=== PATIENT | female | born 1980 | race Caucasian/White ===

== ENCOUNTER 2017-08-24 15:25 | Inpatient (IN) ==
--- NOTE | 2017-08-24 15:52 | Emergency Department Note ---
Disposition Clinical Impression: Suicidal ideation Disposition: Admitted As Inpatient Condition: Fair Forms: ED Satisfaction Letter Time of Disposition: 17:07 Psych HPI - General Chief Complaint: ED Medical Clearance Stated Complaint: Medical clearance Time Seen by Provider: 08/24/17 15:46 Source: patient Mode of arrival: ambulatory Limitations: no limitations Nursing Notes Reviewed: Yes Vital Signs Reviewed: Yes - History of Present Illness HPI Narrative: Patient sent from the crisis center for depression and suicidal thoughts. Denies recent drug or alcohol ingestion. No physical complaints other than headache Pt complaint: suicidal ideation, feels depressed Onset (ago): day(s) Duration: constant History of similar episodes: Yes Improves with: none Worsens with: none Alleged intoxication: No Associated Psychiatric Symptoms: depression, suicidal ideation Associated symptoms: Reports: headache Traumatic symptoms: denies traumatic injury Treatments prior to arrival: none Self harm or harm to others: admits thoughts of self harm - Related Data Home Medications Medication Instructions Recorded Confirmed Amitriptyline [Elavil] 25 mg PO HS 04/25/17 04/25/17 Buspirone HCl [Buspar] 10 mg PO DAILY 04/25/17 04/25/17 Diclofenac Sodium [Voltaren] 50 mg PO DAILY 04/25/17 04/25/17 Divalproex (12 HR) [Depakote (12 250 mg PO BID 04/25/17 04/25/17 HR)] Divalproex (24 HR) [Depakote ER 250 mg PO HS 04/25/17 04/25/17 (24 HR)] HydrOXYzine Pamoate [Vistaril] 50 mg PO DAILY 04/25/17 04/25/17 Melatonin [Melatin] 3 mg PO HS 04/25/17 04/25/17 Sertraline [Zoloft] 100 mg PO DAILY 04/25/17 04/25/17 Allergies Allergy/AdvReac Type Severity Reaction Status Date / Time Penicillins Allergy Swelling Verified 04/25/17 00:29 of Lip/Tongue/Throat All systems ED: reviewed and negative except as stated. Constitutional: Reports: as per HPI Eyes: Reports: as per HPI ENT ED: Reports: as per HPI Cardiovascular: Reports: as per HPI Respiratory: Reports: as per HPI Gastrointestinal: Reports: as per HPI Genitourinary: Reports: as per HPI Musculoskeletal: Reports: as per HPI Integumentary: Reports: as per HPI Neurological: Reports: headache Psychiatric: Reports: depression, suicidal thoughts Endocrine: Reports: as per HPI Hematological/Lymphatic: Reports: as per HPI Allergic/Immunologic: Reports: as per HPI Past Medical History - Past Medical History Source: patient Medical history: Reports: renal disease, seizures, other Surgical history: Reports: , cholecystectomy Psychiatric history: Reports: anxiety, depression [employer] history: Reports: bilateral tubal ligation - Social History Smoking Status: Never smoker Smokeless Tobacco Status: No Alcohol use: Reports: none Drug use: Reports: none Physical Exam - General Limitations: no limitations General appearance: alert, in no apparent distress - Head Head exam: atraumatic - Eye Eye exam: Present: normal appearance - ENT ENT exam: normal exam - Neck Neck exam: Present: normal inspection - Chest Chest inspection: Present: normal inspection, symmetric chest wall rise - Respiratory Respiratory exam: Present: normal lung sounds bilaterally - Cardiovascular Cardiovascular exam: Present: regular rate, normal rhythm, normal heart sounds - Rectal Exam Rectal exam: Present: deferred - Extremities Exam Extremities exam: Present: normal inspection - Neurological Exam Neurological exam: Present: alert, oriented X3, CN II-XII intact - Psychiatric Psychiatric exam: Present: normal affect, normal mood - Skin Skin exam: Present: warm, dry, intact Course Course Narrative: Patient presents feeling depressed and suicidal. I will attempt to clear her medically for behavioral evaluation - Reevaluation(s) Reevaluation #1: 1A accepts admission Vital Signs Temperature 97.6 F 08/24/17 15:42 Pulse Rate 100 08/24/17 15:42 Respiratory Rate 18 08/24/17 15:42 Blood Pressure 161/108 08/24/17 15:42 O2 Sat by Pulse Oximetry 98 08/24/17 15:42 Temperature 97.6 F 08/24/17 15:42 Pulse Rate 100 08/24/17 15:42 Respiratory Rate 18 08/24/17 15:42 Blood Pressure 161/108 08/24/17 15:42 O2 Sat by Pulse Oximetry 98 08/24/17 15:42 Oxygen Delivery Oxygen Delivery Room Air Psych - Lab Data Lab results reviewed: Yes I reviewed the patient's lab results. Result diagrams: 08/24/17 16:23 08/24/17 16:23 Lab Results 08/24/17 08/24/17 08/24/17 Range/Units 16:14 16:14 16:23 WBC 6.7 (4.3-11.1) K/mcL RBC 4.77 (3.82-4.97) M/mcL Hgb 13.9 (11.5-15.4) g/dL Hct 41.0 (35.3-44.9) % MCV 86.0 (83.0-100.0) fL MCH 29.1 (28.0-33.3) pg MCHC 33.9 (31.6-35.5) g/dL RDW 12.1 (11.5-14.5) % Plt Count 228 (140-400) K/mcL MPV 10.0 (9.4-12.4) fL Immature Gran % 0.3 (0-4) % Seg Neutrophils % 77.0 % Lymphocytes % 15.7 % Monocytes % 5.5 % Eosinophils % 1.2 % Basophils % 0.3 % Neutrophils # 5.2 (1.6-8.9) K/mcL Lymphocytes # 1.1 (0.6-4.6) K/mcL Monocytes # 0.4 (0.0-1.3) K/mcL Eosinophils # 0.1 (0.0-0.6) K/mcL Basophils # 0.0 (0.0-0.2) K/mcL Sodium (136-145) mEq/L Potassium (3.5-4.5) mEq/L Chloride (98-109) mEq/L Carbon Dioxide (19-29) mEq/L BUN (7-20) mg/dL Creatinine (0.57-1.11) mg/dL Est GFR ( Amer) (> 60) Est GFR (Non-Af Amer) (> 60) BUN/Creatinine Ratio (6-26) Glucose (70-99) mg/dL Calculated Osmolality (280-300) Calcium (8.6-10.8) mg/dL Urine Color Yellow (Yellow) Urine Clarity Cloudy A (Clear) Urine pH 6.0 (5.0-8.0) pH Units Ur Specific P[place] 1.021 (1.010-1.025) Urine Protein Negative (Neg-Trace) mg/dL Urine Glucose (UA) Normal (Normal) mg/dL Urine Ketones Negative (Negative) mg/dL Urine Blood Large H (Negative) Urine Nitrite Negative (Negative) Urine Bilirubin Negative (Negative) Urine Urobilinogen Normal (Normal) mg/dL Ur Leukocyte Esterase Negative (Negative) Urine Microscopic RBC 0-3 (0-3) per hpf Urine Microscopic WBC 0-3 (0-3) per hpf Ur Squamous Epith Cells Many H (None-Few) per lpf Urine Bacteria Few (None-Few) per hpf Hyaline Casts None Seen (None-Few) per lpf Salicylates (15-30) mg/dL Urine Opiates Screen Negative (Hnrmal=752) ng/mL Acetaminophen (10-30) mcg/mL Ur Barbiturates Screen Negative (Hsledp=096) ng/mL Valproic Acid (50-100) mcg/mL Ur Phencyclidine Scrn Negative (Cutoff=25) ng/mL Ur Amphetamines Screen Positive H (Epovie=8629) ng/mL U Benzodiazepines Scrn Negative (Vwjdck=029) ng/mL Urine Cocaine Screen Negative (Cutoff= 300) ng/mL Ethyl Alcohol (0-10) mg/dL 08/24/17 08/24/17 Range/Units 16:23 16:23 WBC (4.3-11.1) K/mcL RBC (3.82-4.97) M/mcL Hgb (11.5-15.4) g/dL Hct (35.3-44.9) % MCV (83.0-100.0) fL MCH (28.0-33.3) pg MCHC (31.6-35.5) g/dL RDW (11.5-14.5) % Plt Count (140-400) K/mcL MPV (9.4-12.4) fL Immature Gran % (0-4) % Seg Neutrophils % % Lymphocytes % % Monocytes % % Eosinophils % % Basophils % % Neutrophils # (1.6-8.9) K/mcL Lymphocytes # (0.6-4.6) K/mcL Monocytes # (0.0-1.3) K/mcL Eosinophils # (0.0-0.6) K/mcL Basophils # (0.0-0.2) K/mcL Sodium 137 (136-145) mEq/L Potassium 3.8 (3.5-4.5) mEq/L Chloride 106 (98-109) mEq/L Carbon Dioxide 23 (19-29) mEq/L BUN 12 (7-20) mg/dL Creatinine 0.78 (0.57-1.11) mg/dL Est GFR ( Amer) > 60 (> 60) Est GFR (Non-Af Amer) > 60 (> 60) BUN/Creatinine Ratio 15 (6-26) Glucose 114 H (70-99) mg/dL Calculated Osmolality 285 (280-300) Calcium 8.9 (8.6-10.8) mg/dL Urine Color (Yellow) Urine Clarity (Clear) Urine pH (5.0-8.0) pH Units Ur Specific P[place]ott (1.010-1.025) Urine Protein (Neg-Trace) mg/dL Urine Glucose (UA) (Normal) mg/dL Urine Ketones (Negative) mg/dL Urine Blood (Negative) Urine Nitrite (Negative) Urine Bilirubin (Negative) Urine Urobilinogen (Normal) mg/dL Ur Leukocyte Esterase (Negative) Urine Microscopic RBC (0-3) per hpf Urine Microscopic WBC (0-3) per hpf Ur Squamous Epith Cells (None-Few) per lpf Urine Bacteria (None-Few) per hpf Hyaline Casts (None-Few) per lpf Salicylates < 5.0 L (15-30) mg/dL Urine Opiates Screen (Ysaoij=687) ng/mL Acetaminophen < 1.0 L (10-30) mcg/mL Ur Barbiturates Screen (Zcmrvy=958) ng/mL Valproic Acid < 2.00 L (50-100) mcg/mL Ur Phencyclidine Scrn (Cutoff=25) ng/mL Ur Amphetamines Screen (Vmtfor=0665) ng/mL U Benzodiazepines Scrn (Dtdfxg=306) ng/mL Urine Cocaine Screen (Cutoff= 300) ng/mL Ethyl Alcohol < 10 (0-10) mg/dL Psychiatric Medical Clearance - Medical Clearance Checklist Medical History: Abdominal pain (Inactive) Abscess of skin or subcutaneous tissue (Inactive) Cellulitis (Inactive) No Social History Section defined Current Vitals: Last Vital Signs Temp 97.6 F 08/24/17 15:42 Pulse 100 08/24/17 15:42 Resp 18 08/24/17 15:42 BP 161/108 08/24/17 15:42 Pulse Ox 98 08/24/17 15:42 Psychiatric Lab Panel: Drug Levels and Toxicity 08/24/17 08/24/17 16:14 16:23 Urine Opiates Screen Negative Acetaminophen < 1.0 L Ur Barbiturates Screen Negative Ur Phencyclidine Scrn Negative Ur Amphetamines Screen Positive H U Benzodiazepines Scrn Negative Urine Cocaine Screen Negative Ethyl Alcohol < 10 Abnormal Labs: Abnormal lab results Glucose 114 mg/dL (70-99) H 08/24/17 16:23 Urine Clarity Cloudy (Clear) A 08/24/17 16:14 Urine Blood Large (Negative) H 08/24/17 16:14 Ur Squamous Epith Cells Many per lpf (None-Few) H 08/24/17 16:14 Salicylates < 5.0 mg/dL (15-30) L 08/24/17 16:23 Acetaminophen < 1.0 mcg/mL (10-30) L 08/24/17 16:23 Valproic Acid < 2.00 mcg/mL (50-100) L 08/24/17 16:23 Ur Amphetamines Screen Positive ng/mL (Gsfcfg=3987) H 08/24/17 16:14 Statement of Medical Clearance: I have evaluated the patient, reviewed diagnostic information, and certify that the patient's medical condition is sufficiently stable that transfer to the psychiatric unit does not pose a significant risk of deterioration.
[2017-08-24 16:33] LABS: Bilirubin,Urine Negative (Negative); Blood,Urine Large (Negative); Clarity,Urine Cloudy (Clear); Color,Urine Yellow (Yellow); Glucose,Urine (UA) Normal (Normal); Ketones,Urine Negative (Negative); Leukocyte Esterase,Urine Negative (Negative); Nitrite,Urine Negative (Negative); Protein,Urine Negative (Neg-Trace); Specific Gravity,Urine 1.021 (1.010-1.025); Urobilinogen,Urine Normal (Normal)
[2017-08-24 16:34] LABS: Bacteria,Urine Few per hpf (None-Few); Hyaline Casts,Urine None Seen per lpf (None-Few); RBC,Urine 0-3 per hpf (0-3); Squamous Epithelial Cell,Urine Many per lpf (None-Few); WBC,Urine 0-3 per hpf (0-3)
[2017-08-24 16:38] LABS: Amphetamine Screen,Urine Positive ng/mL (Cutoff=1000); Barbiturate Screen,Urine Negative ng/mL (Cutoff=200); Benzodiazepines Screen,Urine Negative ng/mL (Cutoff=200); Cocaine Screen,Urine Negative ng/mL (Cutoff= 300); Opiate Screen,Urine Negative ng/mL (Cutoff=300); Phencyclidine Screen,Urine Negative ng/mL (Cutoff=25)
[2017-08-24 16:43] LABS: Basophils % 0.3 %; Eosinophils # 0.1 K/mcL (0.0-0.6); Eosinophils % 1.2 %; Hemoglobin 13.9 g/dL (11.5-15.4); Immature Granulocytes % 0.3 % (0-4); Lymphocytes # 1.1 K/mcL (0.6-4.6); Lymphocytes % 15.7 %; Mean Corpuscular HGB Conc 33.9 g/dL (31.6-35.5); Mean Corpuscular Hemoglobin 29.1 pg (28.0-33.3); Monocytes # 0.4 K/mcL (0.0-1.3); Monocytes % 5.5 %; Neutrophils # 5.2 K/mcL (1.6-8.9); Platelet Count 228 K/mcL (140-400); Red Blood Count 4.77 M/mcL (3.82-4.97); Red Cell Distribution Width 12.1 % (11.5-14.5)
[2017-08-24 16:56] LABS: BUN/Creatinine Ratio 15 (6-26); Blood Urea Nitrogen 12 mg/dL (7-20); Calcium 8.9 mg/dL (8.6-10.8); Carbon Dioxide 23 mEq/L (19-29); Chloride 106 mEq/L (98-109); Glucose 114 mg/dL (70-99); Osmolality,Calculated 285 (280-300); Potassium 3.8 mEq/L (3.5-4.5); Sodium 137 mEq/L (136-145); eGFR For African Americans > 60 (> 60); eGFR For Non-African Americans > 60 (> 60)
[2017-08-24 16:57] LABS: Acetaminophen < 1.0 mcg/mL (10-30); Ethanol < 10 mg/dL (0-10); Salicylate < 5.0 mg/dL (15-30)
[2017-08-24 17:22] LABS: Cannabinoid Screen,Urine Negative ng/mL (Cutoff = 50)
[2017-08-24] MEDS ORDERED: Mag Hydrox/Al Hydrox/Simeth 30 ML UDC PO PRN (18:28)
[2017-08-24] MEDS ORDERED: *HR* LORazepam 2 MG/ML VIAL IM PRN (18:28)
[2017-08-24] MEDS ORDERED: hydrOXYzine pamoate 25 MG CAPSULE PO PRN (18:28)
[2017-08-24] MEDS ORDERED: *HR* LORazepam 1 MG TABLET PO PRN (18:28)
[2017-08-24] MEDS ORDERED: Haloperidol Lactate 5 MG/ML VIAL IM PRN (18:28)
[2017-08-24] MEDS: Divalproex (24 HR) 250 MG TABLET PO SCH (21:23)
[2017-08-24] MEDS: traZODone 50 MG TABLET PO PRN (21:23)
[2017-08-25] MEDS: Acetaminophen 325 MG TABLET PO PRN ×2 (09:17→21:00)
[2017-08-25] MEDS: Divalproex (24 HR) 250 MG TABLET PO SCH ×2 (09:20→21:00)
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
[2017-08-25] MEDS: ARIPiprazole 2 MG TABLET PO SCH (13:09)
[2017-08-25] MEDS: Loratadine/Pseudophed (12 HR) 1 EACH TABLET PO SCH ×2 (15:41→21:01)
[2017-08-25] MEDS: hydrOXYzine pamoate 25 MG CAPSULE PO PRN (15:41)
[2017-08-25] MEDS: traZODone 50 MG TABLET PO PRN (21:05)
[2017-08-26] MEDS: ARIPiprazole 2 MG TABLET PO SCH (08:41)
[2017-08-26] MEDS: Divalproex (24 HR) 250 MG TABLET PO SCH ×2 (08:41→20:48)
[2017-08-26] MEDS: Loratadine/Pseudophed (12 HR) 1 EACH TABLET PO SCH ×2 (08:41→20:48)
[2017-08-26] MEDS: Acetaminophen 325 MG TABLET PO PRN ×2 (12:35→20:47)
--- NOTE | 2017-08-26 12:46 | Psychiatry Progress Note ---
Date of Encounter: 08/26/17 Time of Encounter: 13:25 Subjective Interval history: Patient seen today for follow-up of her mood and anxiety symptoms. She continues to hear voices but states they are slightly improved. Depression is slightly better today. She is still struggling with anxiety but has not been taking the Vistaril on a regular basis. She is interested in potentially trying BuSpar for her symptoms. Encourage group attendance. She did report to staff that she thought some of the students were talking about her. Encouraged patient to consider that most people have some anxiety in social situations and that most of the time they are just as worried about being judged as she is. Patient verbalizes an understanding and states she will try to attend groups. Review of Systems Psychiatric: Reports: depression, anxiety, abnormal sleep pattern, suicidal ideation, auditory hallucinations, hopelessness, irritability, mood swings. Denies: visual hallucinations Objective: Exam Patient orientation: Yes Person, Yes Time, Yes Place Level of alertness: Alert Patient appearance: Appropriate, Well Groomed Behavior: calm, guarded Psychomotor activity: Normal Eye contact: Maintains Eye Contact Mood description: Depressed Affect description: dysphoric Speech pattern: Normal rate, Normal rhythm, Normal tone Speech volume: Normal Thought process: Intact, Logical Thought content: Yes Suicidal ideation Perceptual disturbances: No Reacting to internal stimuli, Yes Auditory hallucinations Judgment: Limited Insight: Minimal Results - Vital Signs Vital Signs: Temp Pulse Resp BP Pulse Ox 97.4 F L 87 16 135/92 98 08/26/17 09:00 08/26/17 09:00 08/26/17 09:00 08/26/17 09:00 08/24/17 15:42 Assessment and Plan (1) Major depressive disorder without psychotic features Current visit: Yes Status: Acute Plan: Continue hospitalization, Close observation, Suicide Precautions per unit protocol, Encourage participation in unit milieu, Group Therapy, Monitor sleep, Monitor appetite Additional Plan: Continue Abilify. Risks, benefits, side effects, alternatives discussed w/pt: Yes Patient agreeable to treatment: Yes Qualifiers: Major depression recurrence: recurrent Active/Remission status: currently active Major depression episode severity: severe Qualified Code(s): F33.2 - Major depressive disorder, recurrent severe without psychotic features (2) Anxiety Current visit: Yes Status: Acute Plan: Continue hospitalization, Close observation, Suicide Precautions per unit protocol, Encourage participation in unit milieu, Group Therapy, Monitor sleep, Monitor appetite Additional Plan: Start BuSpar. Risks, benefits, side effects, alternatives discussed w/pt: Yes Patient agreeable to treatment: Yes (3) Methamphetamine abuse Current visit: Yes Status: Acute (4) Personality disorder Current visit: Yes Status: Acute Risks, benefits, side effects, alternatives discussed w/pt: Yes Patient agreeable to treatment: Yes Consult Discharge Plan - Plan Referrals: [facility] [Outside] (The above appointment is with . When you come to your first appointment, you will be completing paperwork, meeting with a counselor, and developing a treatment plan. You will receive follow- up appointments for on-going services, which could include community support, mental health and substance abuse counseling, groups/partial hospitalization programming and medication assisted treatment. Please bring the following with you to your first visit to the clinic: 1) proof of household income (two consecutive pay stubs, social security award letter, bank statement, statement letter from [facility], child support statement, IRS 1040 or W2 form, or a statement from the person who financially supports you stating they help provide for your basic needs), 2) proof of residency (drivers license, a piece of mail showing your address, a statement from person you live with verifying you live at their address), 3) your social security card, 4) photo ID, 5) your insurance card (if you have commercial insurance you must call to obtain a prior authorization number before you arrive to your first appointment) and 6) if you do not have insurance but have applied for Medicaid, please bring verification you have applied. The above appointment(s) reflects first availability. You may contact the office regularly to check for cancellations that may allow you to be seen sooner.) Marjorie Lara [Advanced Practice Nurse] - 09/06/17 11:00 am (The above appointment is with Marjorie Lara CNP, at Primary Care within [facility]. This appointment is to establish you with a primary care provider. Your needs for medication and/or Vivitrol will be assessed and treated as indicated as well. Please arrive 15 minutes early to complete paperwork. Please bring your insurance card, photo ID and list of current medications to your first appointment. The above appointment(s) reflects first availability. You may contact the office regularly to check for cancellations that may allow you to be seen sooner.)
[2017-08-26] MEDS: Ibuprofen 600 MG TABLET PO PRN (17:13)
[2017-08-26] MEDS: traZODone 50 MG TABLET PO PRN (20:49)
[2017-08-27] MEDS: Ibuprofen 600 MG TABLET PO PRN (00:21)
[2017-08-27] MEDS: hydrOXYzine pamoate 25 MG CAPSULE PO PRN ×3 (00:24→20:49)
[2017-08-27] MEDS: ARIPiprazole 2 MG TABLET PO SCH (08:37)
[2017-08-27] MEDS: Loratadine/Pseudophed (12 HR) 1 EACH TABLET PO SCH ×2 (08:37→20:51)
[2017-08-27] MEDS: Divalproex (24 HR) 250 MG TABLET PO SCH ×2 (08:38→20:51)
--- NOTE | 2017-08-27 10:29 | Psychiatry Progress Note ---
Date of Encounter: 08/27/17 Time of Encounter: 09:50 Subjective Interval history: Patient is seen today for follow-up. She reports that she has been struggling because her roommate is loud and very yanez. She states that she did not sleep well and is still having nightmares. She denies side effects from the prazosin. She does report congestion from what she believes is a sinus headache. Patient still feels depressed and still hearing her ex-boyfriends voice louder today than yesterday. Encourage patient to attend group and unit activities but she is still reporting a lot of anxiety about being in the therapeutic milieu. Review of Systems Psychiatric: Reports: depression, anxiety, abnormal sleep pattern, suicidal ideation, auditory hallucinations, hopelessness, irritability, mood swings. Denies: visual hallucinations Objective: Exam Patient orientation: Yes Person, Yes Time, Yes Place Level of alertness: Alert Patient appearance: Unkempt Behavior: calm, cooperative, tearful Psychomotor activity: Normal Eye contact: Minimal Contact Mood description: Depressed Affect description: tearful, dysphoric Speech pattern: Normal rate, Normal rhythm, Normal tone Speech volume: Normal Thought process: Intact Thought content: Yes Suicidal ideation, No Homicidal ideation Perceptual disturbances: No Reacting to internal stimuli, Yes Auditory hallucinations Judgment: Limited Insight: Minimal Results - Vital Signs Vital Signs: Temp Pulse Resp BP Pulse Ox 98.1 F 98 18 114/75 98 08/27/17 09:00 08/27/17 09:00 08/27/17 09:00 08/27/17 09:00 08/24/17 15:42 Assessment and Plan (1) Major depressive disorder without psychotic features Current visit: Yes Status: Acute Plan: Continue hospitalization, Close observation, Suicide Precautions per unit protocol, Encourage participation in unit milieu, Group Therapy, Monitor sleep, Monitor appetite Additional Plan: We will increase Abilify to 5 mg by mouth daily. Increase Minipress to 2 mg by mouth daily at bedtime. Monitor for side effects. Continue to encourage group attendance. Risks, benefits, side effects, alternatives discussed w/pt: Yes Patient agreeable to treatment: Yes Qualifiers: Major depression recurrence: recurrent Active/Remission status: currently active Major depression episode severity: severe Qualified Code(s): F33.2 - Major depressive disorder, recurrent severe without psychotic features (2) Anxiety Current visit: Yes Status: Acute Plan: Continue hospitalization, Close observation, Suicide Precautions per unit protocol, Encourage participation in unit milieu, Group Therapy, Monitor sleep, Monitor appetite Additional Plan: Continue BuSpar. Risks, benefits, side effects, alternatives discussed w/pt: Yes Patient agreeable to treatment: Yes (3) Methamphetamine abuse Current visit: Yes Status: Acute (4) Personality disorder Current visit: Yes Status: Acute Risks, benefits, side effects, alternatives discussed w/pt: Yes Patient agreeable to treatment: Yes Consult Discharge Plan - Plan Referrals: [facility] [Outside] (The above appointment is with . When you come to your first appointment, you will be completing paperwork, meeting with a counselor, and developing a treatment plan. You will receive follow- up appointments for on-going services, which could include community support, mental health and substance abuse counseling, groups/partial hospitalization programming and medication assisted treatment. Please bring the following with you to your first visit to the clinic: 1) proof of household income (two consecutive pay stubs, social security award letter, bank statement, statement letter from [facility], child support statement, IRS 1040 or W2 form, or a statement from the person who financially supports you stating they help provide for your basic needs), 2) proof of residency (drivers license, a piece of mail showing your address, a statement from person you live with verifying you live at their address), 3) your social security card, 4) photo ID, 5) your insurance card (if you have commercial insurance you must call to obtain a prior authorization number before you arrive to your first appointment) and 6) if you do not have insurance but have applied for Medicaid, please bring verification you have applied. The above appointment(s) reflects first availability. You may contact the office regularly to check for cancellations that may allow you to be seen sooner.) Marjorie Lara [Advanced Practice Nurse] - 09/06/17 11:00 am (The above appointment is with Marjorie Lara CNP, at Primary Care within [facility]. This appointment is to establish you with a primary care provider. Your needs for medication and/or Vivitrol will be assessed and treated as indicated as well. Please arrive 15 minutes early to complete paperwork. Please bring your insurance card, photo ID and list of current medications to your first appointment. The above appointment(s) reflects first availability. You may contact the office regularly to check for cancellations that may allow you to be seen sooner.)
[2017-08-27] MEDS ORDERED: ARIPiprazole 5 MG TABLET PO ONE (13:15)
[2017-08-27] MEDS: MOM Conc 10 ML UD.LIQ PO PRN (19:06)
[2017-08-27] MEDS: traZODone 50 MG TABLET PO PRN (20:51)
[2017-08-28] MEDS: Divalproex (24 HR) 250 MG TABLET PO SCH ×2 (08:18→21:27)
[2017-08-28] MEDS: ARIPiprazole 5 MG TABLET PO SCH (08:19)
[2017-08-28] MEDS: Loratadine/Pseudophed (12 HR) 1 EACH TABLET PO SCH ×2 (08:20→21:28)
[2017-08-28] MEDS: MOM Conc 10 ML UD.LIQ PO PRN (11:58)
--- NOTE | 2017-08-28 12:17 | Psychiatry Progress Note ---
Date of Encounter: 08/28/17 Time of Encounter: 12:15 Subjective Interval history: Patient seen and interviewed. History and physical examination reviewed. Patient is reporting of not doing well. She is withdrawn and isolated reporting of feeling extremely anxious and nervous. Endorsing hopelessness and helplessness feelings. Endorsing recurrent nightmares and flashbacks related to the past trauma. I encouraged the patient to attend groups and participate in activities and learn coping skills. Tolerating medications fairly well. Review of Systems Psychiatric: Reports: depression, anxiety, abnormal sleep pattern, suicidal ideation, auditory hallucinations, hopelessness, irritability, mood swings. Denies: visual hallucinations Objective: Exam Patient orientation: Yes Person, Yes Time, Yes Place Level of alertness: Alert Patient appearance: Unkempt Behavior: withdrawn Psychomotor activity: Slowed Eye contact: Maintains Eye Contact Mood description: Depressed, Anxious Affect description: constricted, tearful, dysphoric, anxious Speech pattern: Normal rate, Normal rhythm, Normal tone Speech volume: Soft/Quiet Thought process: Linear, Goal Oriented Thought content: Yes Suicidal ideation Perceptual disturbances: No Auditory hallucinations, No Visual hallucinations Judgment: Limited Insight: Minimal Results - Vital Signs Vital Signs: Temp Pulse Resp BP Pulse Ox 97.2 F L 94 16 130/88 98 08/28/17 08:57 08/28/17 08:57 08/28/17 08:57 08/28/17 08:57 08/24/17 15:42 Assessment and Plan (1) Major depressive disorder without psychotic features Current visit: Yes Status: Acute Plan: Continue hospitalization, Close observation, Suicide Precautions per unit protocol, Encourage participation in unit milieu, Group Therapy, Monitor sleep, Monitor appetite Risks, benefits, side effects, alternatives discussed w/pt: Yes Patient agreeable to treatment: Yes Qualifiers: Major depression recurrence: recurrent Active/Remission status: currently active Major depression episode severity: severe Qualified Code(s): F33.2 - Major depressive disorder, recurrent severe without psychotic features (2) Anxiety Current visit: Yes Status: Acute Plan: Continue hospitalization, Close observation, Suicide Precautions per unit protocol, Encourage participation in unit milieu, Group Therapy, Monitor sleep, Monitor appetite Additional Plan: We will increase BuSpar to 10 mg 3 times a day and scheduled Vistaril 50 3 times a day for anxiety symptoms. Risks, benefits, side effects, alternatives discussed w/pt: Yes Patient agreeable to treatment: Yes (3) Methamphetamine abuse Current visit: Yes Status: Acute Plan: Continue hospitalization, Close observation, Suicide Precautions per unit protocol, Encourage participation in unit milieu, Group Therapy, Monitor sleep, Monitor appetite Risks, benefits, side effects, alternatives discussed w/pt: Yes Patient agreeable to treatment: Yes (4) Personality disorder Current visit: Yes Status: Acute Plan: Continue hospitalization, Close observation, Suicide Precautions per unit protocol, Encourage participation in unit milieu, Group Therapy, Monitor sleep, Monitor appetite Risks, benefits, side effects, alternatives discussed w/pt: Yes Patient agreeable to treatment: Yes Consult Discharge Plan - Plan Referrals: [facility] [Outside] - 09/14/17 1:00 pm (The above appointment is with Kala. When you come to your first appointment, you will be completing paperwork, meeting with a counselor, and developing a treatment plan. You will receive follow- up appointments for on-going services, which could include community support, mental health and substance abuse counseling, groups/partial hospitalization programming and medication assisted treatment. Please bring the following with you to your first visit to the clinic: 1) proof of household income (two consecutive pay stubs, social security award letter, bank statement, statement letter from [facility], child support statement, IRS 1040 or W2 form, or a statement from the person who financially supports you stating they help provide for your basic needs), 2) proof of residency (drivers license , a piece of mail showing your address, a statement from person you live with verifying you live at their address), 3) your social security card, 4) photo ID , 5) your insurance card (if you have commercial insurance you must call to obtain a prior authorization number before you arrive to your first appointment ) and 6) if you do not have insurance but have applied for Medicaid, please bring verification you have applied. The above appointment(s) reflects first availability. You may contact the office regularly to check for cancellations that may allow you to be seen sooner.) Marjorie Lara [Advanced Practice Nurse] - 09/06/17 11:00 am (The above appointment is with Marjorie Lara CNP, at Primary Care within [facility]. This appointment is to establish you with a primary care provider. Your needs for medication and/or Vivitrol will be assessed and treated as indicated as well. Please arrive 15 minutes early to complete paperwork. Please bring your insurance card, photo ID and list of current medications to your first appointment. The above appointment(s) reflects first availability. You may contact the office regularly to check for cancellations that may allow you to be seen sooner.)
[2017-08-28] MEDS ORDERED: hydrOXYzine pamoate 25 MG CAPSULE PO ONE (12:27)
[2017-08-28] MEDS: hydrOXYzine pamoate 25 MG CAPSULE PO SCH ×2 (15:12→21:29)
[2017-08-28] MEDS: traZODone 50 MG TABLET PO PRN (21:28)
[2017-08-29] MEDS: Acetaminophen 325 MG TABLET PO PRN ×3 (06:55→21:48)
[2017-08-29] MEDS: hydrOXYzine pamoate 25 MG CAPSULE PO SCH ×3 (09:17→21:01)
[2017-08-29] MEDS: Divalproex (24 HR) 250 MG TABLET PO SCH ×2 (09:17→21:02)
[2017-08-29] MEDS: ARIPiprazole 5 MG TABLET PO SCH (09:18)
[2017-08-29] MEDS: Loratadine/Pseudophed (12 HR) 1 EACH TABLET PO SCH ×2 (09:18→21:03)
--- NOTE | 2017-08-29 11:48 | Psychiatry Progress Note ---
Date of Encounter: 08/29/17 Time of Encounter: 11:40 Subjective Interval history: Patient seen and interviewed. Started to notice improvement in her mood. Suicidal ideations and hopeless feelings of subsided for most part. Slept better last night. Not reporting of any nightmares last night. Planning on attending groups and participating in activities and is working on a safety plan. Tolerating medications fairly well. Overall making progress. Review of Systems Psychiatric: Reports: depression, anxiety. Denies: visual hallucinations Objective: Exam Patient orientation: Yes Person, Yes Time, Yes Place Level of alertness: Alert Patient appearance: Appropriate, Well Groomed Behavior: calm, cooperative Psychomotor activity: Normal Eye contact: Maintains Eye Contact Mood description: Depressed, Anxious Affect description: constricted, dysphoric Speech pattern: Normal rate, Normal rhythm, Normal tone Speech volume: Normal Thought process: Linear, Goal Oriented Thought content: No Suicidal ideation, No Homicidal ideation, No Overt delusions Perceptual disturbances: No Auditory hallucinations, No Visual hallucinations Judgment: Fair Insight: Partial Results - Vital Signs Vital Signs: Temp Pulse Resp BP Pulse Ox 97.8 F 98 16 121/84 98 08/29/17 09:00 08/29/17 09:00 08/29/17 09:00 08/29/17 09:00 08/24/17 15:42 Assessment and Plan (1) Major depressive disorder without psychotic features Current visit: Yes Status: Acute Plan: Continue hospitalization, Close observation, Suicide Precautions per unit protocol, Encourage participation in unit milieu, Group Therapy, Monitor sleep, Monitor appetite Additional Plan: Consider possible discharge tomorrow if patient continues to remain stable Risks, benefits, side effects, alternatives discussed w/pt: Yes Patient agreeable to treatment: Yes Qualifiers: Major depression recurrence: recurrent Active/Remission status: currently active Major depression episode severity: severe Qualified Code(s): F33.2 - Major depressive disorder, recurrent severe without psychotic features (2) Anxiety Current visit: Yes Status: Acute Plan: Continue hospitalization, Close observation, Suicide Precautions per unit protocol, Encourage participation in unit milieu, Group Therapy, Monitor sleep, Monitor appetite Risks, benefits, side effects, alternatives discussed w/pt: Yes Patient agreeable to treatment: Yes (3) Methamphetamine abuse Current visit: Yes Status: Acute Plan: Continue hospitalization, Close observation, Suicide Precautions per unit protocol, Encourage participation in unit milieu, Group Therapy, Monitor sleep, Monitor appetite Risks, benefits, side effects, alternatives discussed w/pt: Yes Patient agreeable to treatment: Yes (4) Personality disorder Current visit: Yes Status: Acute Risks, benefits, side effects, alternatives discussed w/pt: Yes Patient agreeable to treatment: Yes Consult Discharge Plan - Plan Referrals: [facility] [Outside] - 09/14/17 1:00 pm (The above appointment is with Kala. When you come to your first appointment, you will be completing paperwork, meeting with a counselor, and developing a treatment plan. You will receive follow- up appointments for on-going services, which could include community support, mental health and substance abuse counseling, groups/partial hospitalization programming and medication assisted treatment. Please bring the following with you to your first visit to the clinic: 1) proof of household income (two consecutive pay stubs, social security award letter, bank statement, statement letter from [facility], child support statement, IRS 1040 or W2 form, or a statement from the person who financially supports you stating they help provide for your basic needs), 2) proof of residency (drivers license , a piece of mail showing your address, a statement from person you live with verifying you live at their address), 3) your social security card, 4) photo ID , 5) your insurance card (if you have commercial insurance you must call to obtain a prior authorization number before you arrive to your first appointment ) and 6) if you do not have insurance but have applied for Medicaid, please bring verification you have applied. The above appointment(s) reflects first availability. You may contact the office regularly to check for cancellations that may allow you to be seen sooner.) Marjorie Lara [Advanced Practice Nurse] - 09/06/17 11:00 am (The above appointment is with Marjorie Lara CNP, at Primary Care within [facility]. This appointment is to establish you with a primary care provider. Your needs for medication and/or Vivitrol will be assessed and treated as indicated as well. Please arrive 15 minutes early to complete paperwork. Please bring your insurance card, photo ID and list of current medications to your first appointment. The above appointment(s) reflects first availability. You may contact the office regularly to check for cancellations that may allow you to be seen sooner.)
[2017-08-29] MEDS: Ibuprofen 600 MG TABLET PO PRN (12:08)
[2017-08-29] MEDS: traZODone 50 MG TABLET PO PRN (21:03)
[2017-08-30] MEDS: Divalproex (24 HR) 250 MG TABLET PO SCH ×2 (08:54→20:04)
[2017-08-30] MEDS: Loratadine/Pseudophed (12 HR) 1 EACH TABLET PO SCH ×2 (08:54→20:05)
[2017-08-30] MEDS: ARIPiprazole 5 MG TABLET PO SCH (08:54)
[2017-08-30] MEDS: hydrOXYzine pamoate 25 MG CAPSULE PO SCH ×3 (08:54→20:05)
[2017-08-30] MEDS ORDERED: traZODone 50 MG TABLET PO PRN (14:06)
--- NOTE | 2017-08-30 14:13 | Psychiatry Progress Note ---
Date of Encounter: 08/30/17 Time of Encounter: 14:07 Subjective Interval history: Client reports her nightmares are better. Still having them but finds Minipress helpful and feels like dreams are less intense. Suicidal ideation has also subsided but she reports feeling really agitated today. Endorsed poor sleep last night. Woke from a dream at 3am and could not fall back asleep until 7am. Taking Buspar and Vistaril for anxiety but does not feel they are helping. Did feel like they were helping when she first started them. Discussed how medications can take weeks to deliver their full benefit. Also discussed how lack of sleep may be impacting anxiety. Will increase Trazodone for tonight. Discussed care home nature of issues and how outpatient follow-up will be important. Outpatient appointments have been scheduled. Lives with father and stepmother and can return there. If she sleeps adequately and feels safe tomorrow may look at discharge. Mother admitted medically to the hospital yesterday so this is weighing on her as well. Review of Systems Constitutional: Denies: fever, chills, weakness, weight change Eyes: Denies: eye pain, vision change Ears, Nose, Throat: Denies: ear pain, throat pain, dental pain, hearing loss, congestion Cardiovascular: Denies: chest pain, palpitations, dyspnea on exertion Respiratory: Denies: cough, dyspnea, wheezes Gastrointestinal: Denies: abdominal pain, nausea, vomiting, diarrhea, constipation Musculoskeletal: Denies: joint swelling, joint pain Neurological: Denies: headache, weakness, numbness, memory loss Psychiatric: Reports: depression, anxiety. Denies: visual hallucinations Objective: Exam Patient orientation: Yes Person, Yes Time, Yes Place Level of alertness: Alert Patient appearance: Appropriate Behavior: anxious Psychomotor activity: Agitated Eye contact: Maintains Eye Contact Mood description: Anxious Affect description: congruent with mood Speech pattern: Normal rate, Normal rhythm, Normal tone Speech volume: Normal Thought process: Linear Thought content: No Suicidal ideation, No Homicidal ideation, No Overt delusions Perceptual disturbances: No Reacting to internal stimuli, Yes Auditory hallucinations, No Visual hallucinations Judgment: Fair Insight: Partial Results - Vital Signs Vital Signs: Temp Pulse Resp BP Pulse Ox 97.3 F L 105 12 135/93 98 08/30/17 09:00 08/30/17 09:00 08/30/17 09:00 08/30/17 09:00 08/24/17 15:42 Assessment and Plan (1) Major depressive disorder without psychotic features Current visit: Yes Status: Acute Plan: Continue hospitalization, Close observation, Suicide Precautions per unit protocol, Encourage participation in unit milieu, Group Therapy, Monitor sleep, Monitor appetite Risks, benefits, side effects, alternatives discussed w/pt: Yes Patient agreeable to treatment: Yes Qualifiers: Major depression recurrence: recurrent Active/Remission status: currently active Major depression episode severity: severe Qualified Code(s): F33.2 - Major depressive disorder, recurrent severe without psychotic features Consult Discharge Plan - Plan Referrals: [facility] [Outside] - 09/14/17 1:00 pm (The above appointment is with Kala. When you come to your first appointment, you will be completing paperwork, meeting with a counselor, and developing a treatment plan. You will receive follow- up appointments for on-going services, which could include community support, mental health and substance abuse counseling, groups/partial hospitalization programming and medication assisted treatment. Please bring the following with you to your first visit to the clinic: 1) proof of household income (two consecutive pay stubs, social security award letter, bank statement, statement letter from [facility], child support statement, IRS 1040 or W2 form, or a statement from the person who financially supports you stating they help provide for your basic needs), 2) proof of residency (drivers license , a piece of mail showing your address, a statement from person you live with verifying you live at their address), 3) your social security card, 4) photo ID , 5) your insurance card (if you have commercial insurance you must call to obtain a prior authorization number before you arrive to your first appointment ) and 6) if you do not have insurance but have applied for Medicaid, please bring verification you have applied. The above appointment(s) reflects first availability. You may contact the office regularly to check for cancellations that may allow you to be seen sooner.) Marjorie Lara [Advanced Practice Nurse] - 09/06/17 11:00 am (The above appointment is with Marjorei Lara CNP, at [facility]. This appointment is to establish you with a primary care provider. Your needs for medication and/or Vivitrol will be assessed and treated as indicated as well. Please arrive 15 minutes early to complete paperwork. Please bring your insurance card, photo ID and list of current medications to your first appointment. The above appointment(s) reflects first availability. You may contact the office regularly to check for cancellations that may allow you to be seen sooner.)
[2017-08-30] MEDS ORDERED: traZODone 50 MG TABLET PO SCH (21:00)
[2017-08-31] MEDS: Loratadine/Pseudophed (12 HR) 1 EACH TABLET PO SCH (08:30)
[2017-08-31] MEDS: hydrOXYzine pamoate 25 MG CAPSULE PO SCH ×2 (08:30→14:21)
[2017-08-31] MEDS: Divalproex (24 HR) 250 MG TABLET PO SCH (08:30)
[2017-08-31] MEDS: ARIPiprazole 5 MG TABLET PO SCH (08:31)
[2017-08-31 08:33] VITALS: BP 128/90
--- NOTE | 2017-08-31 14:06 | Discharge Summary ---
Date of Encounter: 08/31/17 Time of Encounter: 14:02 Diagnosis - Discharge Diagnosis (1) Major depressive disorder without psychotic features Status: Acute Qualifiers: Major depression recurrence: recurrent Active/Remission status: currently active Major depression episode severity: severe Qualified Code(s): F33.2 - Major depressive disorder, recurrent severe without psychotic features Medications - Discharge Medications Prescriptions: ARIPiprazole [Abilify] 5 mg PO DAILY #7 tablet Buspirone HCl [Buspar] 10 mg PO TID #42 tablet Loratadine/Pseudophed (12 HR) [Claritin D (12HR)] 1 each PO BID #14 tablet Prazosin [Minipress] 2 mg PO HS #14 capsule traZODone [TraZODone] 100 mg PO HS #7 tablet Divalproex (24 HR) [Depakote ER (24 HR)] 500 mg PO BID 04/25/17 [History] ARIPiprazole [Abilify] 5 mg PO DAILY #7 tablet 08/31/17 [Rx] Buspirone HCl [Buspar] 10 mg PO TID #42 tablet 08/31/17 [Rx] Docusate [Colace] 100 mg PO BID capsule 08/31/17 [Rx] Ibuprofen [Motrin] 600 mg PO Q6HR PRN tablet 08/31/17 [Rx] Loratadine/Pseudophed (12 HR) [Claritin D (12HR)] 1 each PO BID #14 tablet 08/31 [Rx] Prazosin [Minipress] 2 mg PO HS #14 capsule 08/31/17 [Rx] hydrOXYzine pamoate [HydrOXYzine Pamoate] 50 mg PO TID capsule 08/31/17 [Rx] traZODone [TraZODone] 100 mg PO HS #7 tablet 08/31/17 [Rx] 3 Allergy/AdvReac Type Severity Reaction Status Date / Time Penicillins Allergy Swelling Verified 04/25/17 00:29 of Lip/Tongue/Throat Provider Date of admission: 08/24/17 17:14 Primary care physician: PCP NONE Discharging clinician: Kasia Montoya Assessment and Plan - Patient/Caregiver Discharge Instructions Activity: resume usual activities as tolerated Diet: regular diet - Follow up Plan Follow up with: Haylee Winters [Outside] - 09/14/17 1:00 pm (The above appointment is with Kala. When you come to your first appointment, you will be completing paperwork, meeting with a counselor, and developing a treatment plan. You will receive follow- up appointments for on-going services, which could include community support, mental health and substance abuse counseling, groups/partial hospitalization programming and medication assisted treatment. Please bring the following with you to your first visit to the clinic: 1) proof of household income (two consecutive pay stubs, social security award letter, bank statement, statement letter from [facility], child support statement, IRS 1040 or W2 form, or a statement from the person who financially supports you stating they help provide for your basic needs), 2) proof of residency (drivers license , a piece of mail showing your address, a statement from person you live with verifying you live at their address), 3) your social security card, 4) photo ID , 5) your insurance card (if you have commercial insurance you must call to obtain a prior authorization number before you arrive to your first appointment ) and 6) if you do not have insurance but have applied for Medicaid, please bring verification you have applied. The above appointment(s) reflects first availability. You may contact the office regularly to check for cancellations that may allow you to be seen sooner.) Marjorie Lara [Advanced Practice Nurse] - 09/06/17 11:00 am (The above appointment is with Marjorie Lara CNP, at Primary [facility] within [facility]. This appointment is to establish you with a primary care provider. Your needs for medication and/or Vivitrol will be assessed and treated as indicated as well. Please arrive 15 minutes early to complete paperwork. Please bring your insurance card, photo ID and list of current medications to your first appointment. The above appointment(s) reflects first availability. You may contact the office regularly to check for cancellations that may allow you to be seen sooner.) Functional capacity at discharge: independent ambulation Overall status at discharge: Stable Disposition: Home, Self-Care Hospital Course Hospital course: Ms. Le is a 36 year old female who was admitted secondary to suicidal ideation. She improved with a combination of Abilify, Buspar, Minipress, and Trazodone. Sleep/nightmares seemed to be her biggest issue. Yesterday she had not slept well and was feeling agitated. Today client reports she slept all night with no troubling dreams. She looks visibly better. Staff report she has been out interacting on the unit. She denies SI/HI. No concerning behaviors in the hospital. Client was able to talk to her mother who needs surgery for blocked arteries. Once client is discharged she intends to go upstairs and visit her mother and once her sister gets off work she will transport her home. Client has a follow-up appointment next week and will be given enough medications to get her through her first appointment. - Time Spent with Patient Total time spent providing and/or coordinating discharge services: Quality - Multiple Antipsychotics Patient discharged on 2 or more antipsychotic medications: No Procedures - Procedures Procedures: Medication Management, Crisis Stabilization, Supportive Therapy, Group Therapy Mental Status Exam - Mental Status Exam Patient orientation: Yes Person, Yes Time, Yes Place Level of alertness: Alert Patient appearance: Appropriate, Well Groomed Behavior: calm, cooperative Psychomotor activity: Normal Eye contact: Maintains Eye Contact Mood description: Euthymic/stable Affect description: congruent with mood, full range Speech pattern: Normal rate, Normal rhythm, Normal tone Speech Volume: Normal Thought process: Linear, Goal Oriented Thought Content: No Suicidal ideation, No Homicidal ideation, No Overt delusions Perceptual Disturbances: No Auditory hallucinations, No Visual hallucinations Judgment: Fair Insight: Partial
[2017-08-31] MEDS ORDERED: FLUARIX QUAD 2017-18 36MOS UP/PF 0.5 ML SYRINGE IM ONE (14:15)
== END 2017-08-31 14:35 | disposition home or self-care (01) | DRG 751 ==
LOC: EMEROO 15:25 → SUATTDRO 17:14 → 1ANU 17:14
PROVIDERS: ADMIT Student in an Organized Health Care Education/Training Program; ATTEND Psychiatry & Neurology Psychiatry

== ENCOUNTER 2018-01-20 13:49 | Inpatient (IN) ==
--- NOTE | 2018-01-20 14:10 | Emergency Department Note ---
Disposition Clinical Impression: Suicidal ideation Chest pain Qualifiers: Chest pain type: unspecified Qualified Code(s): R07.9 - Chest pain, unspecified Disposition: Admitted As Inpatient Condition: Fair Referrals: NONE,PCP [Primary Care Provider] - Forms: ED Satisfaction Letter Time of Disposition: 18:29 Psych HPI - General Chief Complaint: ED Chest Pain Stated Complaint: SI/CP Time Seen by Provider: 01/20/18 14:00 Source: patient Limitations: no limitations Nursing Notes Reviewed: Yes Vital Signs Reviewed: Yes - History of Present Illness HPI Narrative: Patient states that she has felt suicidal since her recent discharge from the [facility]. She has a history of mental health disorders. Has been compliant with her medication. Has not used methamphetamine or other drugs over the past 4 months. She also states that she had chest pain that started 5 hours prior to arrival, lasted 90 minutes, and spontaneously resolved. Oral intake with food made this worse. She felt her heart racing. Symptoms now resolved Pt complaint: suicidal ideation Onset (ago): week(s) Duration: constant History of similar episodes: Yes Improves with: none Worsens with: none Alleged intoxication: No Associated Psychiatric Symptoms: depression, suicidal ideation Associated symptoms: Reports: other Traumatic symptoms: denies traumatic injury Treatments prior to arrival: none Self harm or harm to others: admits thoughts of self harm - Related Data Home Medications Medication Instructions Recorded Confirmed Quetiapine Fumarate [Seroquel] 50 mg PO 01/18/18 Previous Rx's Medication Instructions Recorded Buspirone HCl [Buspar] 10 mg PO TID #42 tablet 08/31/17 Ibuprofen [Motrin] 600 mg PO Q6HR PRN tablet 08/31/17 Prazosin [Minipress] 2 mg PO HS #14 capsule 08/31/17 traZODone [TraZODone] 100 mg PO HS #7 tablet 08/31/17 Fluticasone Propionate Nasal 1 spray NS DAILY #1 bottle 01/18/18 [Flonase] Guaifenesin/Dm/Pseudoephedrine 1 each PO Q6H PRN #30 tablet 01/18/18 [Capmist Dm Tablet] Allergies Allergy/AdvReac Type Severity Reaction Status Date / Time Penicillins Allergy Swelling Verified 04/25/17 00:29 of Lip/Tongue/Throat All systems ED: reviewed and negative except as stated. Constitutional: Reports: as per HPI Eyes: Reports: as per HPI ENT ED: Reports: as per HPI Cardiovascular: Reports: chest pain, palpitations Respiratory: Reports: as per HPI Gastrointestinal: Reports: as per HPI Genitourinary: Reports: as per HPI Musculoskeletal: Reports: as per HPI Integumentary: Reports: as per HPI Neurological: Reports: as per HPI Psychiatric: Reports: depression, suicidal thoughts Endocrine: Reports: as per HPI Hematological/Lymphatic: Reports: as per HPI Allergic/Immunologic: Reports: as per HPI Past Medical History - Past Medical History Source: patient Medical history: Reports: seizures, other Surgical history: Reports: , cholecystectomy Psychiatric history: Reports: anxiety, bipolar, depression, PTSD, previous psychiatric hospitalization [employer] history: Reports: bilateral tubal ligation - Social History Smoking Status: Never smoker Smokeless Tobacco Status: No Alcohol use: Reports: none Drug use: Reports: methamphetamine Physical Exam - General Limitations: no limitations General appearance: alert, in no apparent distress - Head Head exam: atraumatic - Eye Eye exam: Present: normal appearance - ENT ENT exam: normal exam - Neck Neck exam: Present: normal inspection, full ROM - Chest Chest inspection: Present: normal inspection, symmetric chest wall rise - Respiratory Respiratory exam: Present: normal lung sounds bilaterally - Cardiovascular Cardiovascular exam: Present: regular rate, normal rhythm, normal heart sounds - Rectal Exam Rectal exam: Present: deferred - Extremities Exam Extremities exam: Present: normal inspection - Neurological Exam Neurological exam: Present: alert, oriented X3, CN II-XII intact - Psychiatric Psychiatric exam: Present: normal affect, normal mood - Skin Skin exam: Present: warm, dry, intact Course Course Narrative: Patient presents feeling suicidal. I will attempt to clear her medically for behavioral evaluation Patient also complains of chest pain. Chest pain evaluation initiated - Reevaluation(s) Reevaluation #1: 1A accepts admission Vital Signs Temperature 98.0 F 01/20/18 13:51 Pulse Rate 98 01/20/18 13:51 Respiratory Rate 16 01/20/18 13:51 Blood Pressure 147/95 01/20/18 13:51 O2 Sat by Pulse Oximetry 98 01/20/18 13:51 Temperature 98.0 F 01/20/18 13:51 Pulse Rate 98 01/20/18 13:51 Respiratory Rate 16 01/20/18 13:51 Blood Pressure 147/95 01/20/18 13:51 O2 Sat by Pulse Oximetry 98 01/20/18 13:51 Oxygen Delivery Oxygen Delivery Room Air Psych - Lab Data Lab results reviewed: Yes I reviewed the patient's lab results. Result diagrams: 01/20/18 14:13 01/20/18 14:13 Lab Results 01/20/18 01/20/18 01/20/18 Range/Units 14:13 14:13 14:13 WBC 6.6 (4.3-11.1) K/mcL RBC 4.63 (3.82-4.97) M/mcL Hgb 13.8 (11.5-15.4) g/dL Hct 40.3 (35.3-44.9) % MCV 87.0 (83.0-100.0) fL MCH 29.8 (28.0-33.3) pg MCHC 34.2 (31.6-35.5) g/dL RDW 12.9 (11.5-14.5) % Plt Count 267 (140-400) K/mcL MPV 9.4 (9.4-12.4) fL Immature Gran % 0.5 (0-4) % Seg Neutrophils % 72.8 % Lymphocytes % 16.5 % Monocytes % 6.8 % Eosinophils % 2.9 % Basophils % 0.5 % Neutrophils # 4.8 (1.6-8.9) K/mcL Lymphocytes # 1.1 (0.6-4.6) K/mcL Monocytes # 0.5 (0.0-1.3) K/mcL Eosinophils # 0.2 (0.0-0.6) K/mcL Basophils # 0.0 (0.0-0.2) K/mcL Sodium 139 (136-145) mEq/L Potassium 3.6 (3.5-5.1) mEq/L Chloride 108 H (98-107) mEq/L Carbon Dioxide 21 L (23-29) mEq/L BUN 18 (6-20) mg/dL Creatinine 0.74 (0.60-1.20) mg/dL Est GFR ( Amer) > 60 (> 60) Est GFR (Non-Af Amer) > 60 (> 60) BUN/Creatinine Ratio 24 (6-26) Glucose 130 H (70-105) mg/dL Calculated Osmolality 292 (280-300) Calcium 9.6 (8.6-10.3) mg/dL Total Bilirubin 0.3 (0.3-1.0) mg/dL Direct Bilirubin 0.1 (0.0-0.2) mg/dL Indirect Bilirubin 0.2 (0.0-1.2) mg/dL AST 27 (13-39) Units/L ALT 31 (7-52) Units/L Alkaline Phosphatase 77 (34-104) Units/L Troponin I < 0.03 (< 0.04) ng/mL Serum Total Protein 8.0 (6.4-8.9) g/dL Albumin 4.0 (3.5-5.7) g/dL Globulin 4.0 H (2.4-3.5) g/dL Albumin/Globulin Ratio 1.0 L (1.1-2.2) Serum , Qual Negative (Negative) Salicylates < 2.5 L (15.0-30.0) mg/dL Urine Opiates Screen (Pnsgxe=717) ng/mL Acetaminophen < 10 L (10-20) mcg/mL Ur Barbiturates Screen (Goabmo=768) ng/mL Valproic Acid 5 L (50-100) mcg/mL Ur Phencyclidine Scrn (Cutoff=25) ng/mL Ur Amphetamines Screen (Mgfokh=1316) ng/mL U Benzodiazepines Scrn (Pvfrgy=401) ng/mL Urine Cocaine Screen (Cutoff= 300) ng/mL U Marijuana (THC) Screen (Cutoff = 50) ng/mL Ethyl Alcohol < 10 (Less than 10) mg/dL 01/20/18 Range/Units 14:18 WBC (4.3-11.1) K/mcL RBC (3.82-4.97) M/mcL Hgb (11.5-15.4) g/dL Hct (35.3-44.9) % MCV (83.0-100.0) fL MCH (28.0-33.3) pg MCHC (31.6-35.5) g/dL RDW (11.5-14.5) % Plt Count (140-400) K/mcL MPV (9.4-12.4) fL Immature Gran % (0-4) % Seg Neutrophils % % Lymphocytes % % Monocytes % % Eosinophils % % Basophils % % Neutrophils # (1.6-8.9) K/mcL Lymphocytes # (0.6-4.6) K/mcL Monocytes # (0.0-1.3) K/mcL Eosinophils # (0.0-0.6) K/mcL Basophils # (0.0-0.2) K/mcL Sodium (136-145) mEq/L Potassium (3.5-5.1) mEq/L Chloride (98-107) mEq/L Carbon Dioxide (23-29) mEq/L BUN (6-20) mg/dL Creatinine (0.60-1.20) mg/dL Est GFR ( Amer) (> 60) Est GFR (Non-Af Amer) (> 60) BUN/Creatinine Ratio (6-26) Glucose (70-105) mg/dL Calculated Osmolality (280-300) Calcium (8.6-10.3) mg/dL Total Bilirubin (0.3-1.0) mg/dL Direct Bilirubin (0.0-0.2) mg/dL Indirect Bilirubin (0.0-1.2) mg/dL AST (13-39) Units/L ALT (7-52) Units/L Alkaline Phosphatase (34-104) Units/L Troponin I (< 0.04) ng/mL Serum Total Protein (6.4-8.9) g/dL Albumin (3.5-5.7) g/dL Globulin (2.4-3.5) g/dL Albumin/Globulin Ratio (1.1-2.2) Serum , Qual (Negative) Salicylates (15.0-30.0) mg/dL Urine Opiates Screen Negative (Gfeebd=399) ng/mL Acetaminophen (10-20) mcg/mL Ur Barbiturates Screen Negative (Amyilw=521) ng/mL Valproic Acid (50-100) mcg/mL Ur Phencyclidine Scrn Negative (Cutoff=25) ng/mL Ur Amphetamines Screen Positive H (Hrsiqk=0690) ng/mL U Benzodiazepines Scrn Negative (Opdllz=369) ng/mL Urine Cocaine Screen Negative (Cutoff= 300) ng/mL U Marijuana (THC) Screen Negative (Cutoff = 50) ng/mL Ethyl Alcohol (Less than 10) mg/dL - Radiology Data Radiology results reviewed: Yes I reviewed the patient's radiology results. - EKG Data EKG attestation: Yes I reviewed and interpreted this EKG. EKG results narrative: Normal sinus rhythm left ventricular hypertrophy rate 90 VT 170 QRS 85 QT/QTC 363/411. study compared to previous dated 05/13/15 Psychiatric Medical Clearance - Medical Clearance Checklist Medical History: (This Medical Record has been edited. Action required.) Suicidal ideation (Acute) Major depressive disorder without psychotic features (Acute) Methamphetamine abuse (Acute) Personality disorder (Acute) Anxiety (Acute) Upper respiratory infection (Acute) Abdominal pain (Inactive) Abscess of skin or subcutaneous tissue (Inactive) Cellulitis (Inactive) (This Medical Record has been edited. Action required.) No Social History Section defined Current Vitals: Last Vital Signs Temp 98.0 F 01/20/18 13:51 Pulse 98 01/20/18 13:51 Resp 16 01/20/18 13:51 BP 147/95 01/20/18 13:51 Pulse Ox 98 01/20/18 13:51 Psychiatric Lab Panel: Drug Levels and Toxicity 01/20/18 01/20/18 14:13 14:18 Urine Opiates Screen Negative Acetaminophen < 10 L Ur Barbiturates Screen Negative Ur Phencyclidine Scrn Negative Ur Amphetamines Screen Positive H U Benzodiazepines Scrn Negative Urine Cocaine Screen Negative U Marijuana (THC) Screen Negative Ethyl Alcohol < 10 Abnormal Labs: Abnormal lab results Chloride 108 mEq/L (98-107) H 01/20/18 14:13 Carbon Dioxide 21 mEq/L (23-29) L 01/20/18 14:13 Glucose 130 mg/dL (70-105) H 01/20/18 14:13 Globulin 4.0 g/dL (2.4-3.5) H 01/20/18 14:13 Albumin/Globulin Ratio 1.0 (1.1-2.2) L 01/20/18 14:13 Salicylates < 2.5 mg/dL (15.0-30.0) L 01/20/18 14:13 Acetaminophen < 10 mcg/mL (10-20) L 01/20/18 14:13 Valproic Acid 5 mcg/mL (50-100) L 01/20/18 14:13 Ur Amphetamines Screen Positive ng/mL (Etmdhc=5537) H 01/20/18 14:18 Statement of Medical Clearance: I have evaluated the patient, reviewed diagnostic information, and certify that the patient's medical condition is sufficiently stable that transfer to the psychiatric unit does not pose a significant risk of deterioration.
[2018-01-20 14:34] LABS: Basophils % 0.5 %; Eosinophils # 0.2 K/mcL (0.0-0.6); Eosinophils % 2.9 %; Hematocrit 40.3 % (35.3-44.9); Hemoglobin 13.8 g/dL (11.5-15.4); Immature Granulocytes % 0.5 % (0-4); Lymphocytes # 1.1 K/mcL (0.6-4.6); Lymphocytes % 16.5 %; Mean Corpuscular HGB Conc 34.2 g/dL (31.6-35.5); Mean Corpuscular Hemoglobin 29.8 pg (28.0-33.3); Mean Platelet Volume 9.4 fL (9.4-12.4); Monocytes # 0.5 K/mcL (0.0-1.3); Monocytes % 6.8 %; Neutrophils # 4.8 K/mcL (1.6-8.9); Platelet Count 267 K/mcL (140-400); Red Blood Count 4.63 M/mcL (3.82-4.97); Red Cell Distribution Width 12.9 % (11.5-14.5); Segmented Neutrophils % 72.8 %
[2018-01-20 14:57] LABS: Amphetamine Screen,Urine Positive ng/mL (Cutoff=1000); Barbiturate Screen,Urine Negative ng/mL (Cutoff=200); Benzodiazepines Screen,Urine Negative ng/mL (Cutoff=200); Cannabinoid Screen,Urine Negative ng/mL (Cutoff = 50); Cocaine Screen,Urine Negative ng/mL (Cutoff= 300); Opiate Screen,Urine Negative ng/mL (Cutoff=300); Phencyclidine Screen,Urine Negative ng/mL (Cutoff=25)
[2018-01-20 15:13] LABS: Acetaminophen < 10 mcg/mL (10-20); Alanine Aminotransferase 31 Units/L (7-52); Alkaline Phosphatase 77 Units/L (34-104); Aspartate Amino Transferase 27 Units/L (13-39); BUN/Creatinine Ratio 24 (6-26); Bilirubin,Direct 0.1 mg/dL (0.0-0.2); Bilirubin,Indirect 0.2 mg/dL (0.0-1.2); Bilirubin,Total 0.3 mg/dL (0.3-1.0); Blood Urea Nitrogen 18 mg/dL (6-20); Calcium 9.6 mg/dL (8.6-10.3); Carbon Dioxide 21 mEq/L (23-29); Chloride 108 mEq/L (98-107); Ethanol < 10 mg/dL (Less than 10); Glucose 130 mg/dL (70-105); Osmolality,Calculated 292 (280-300); Potassium 3.6 mEq/L (3.5-5.1); Salicylate < 2.5 mg/dL (15.0-30.0); Sodium 139 mEq/L (136-145); eGFR For African Americans > 60 (> 60); eGFR For Non-African Americans > 60 (> 60)
[2018-01-20 15:29] LABS: Valproate 5 mcg/mL (50-100)
[2018-01-20 16:00] LABS: Troponin I < 0.03 ng/mL (< 0.04)
[2018-01-20] MEDS ORDERED: Haloperidol Lactate 5 MG/ML VIAL IM PRN (19:06)
[2018-01-20] MEDS ORDERED: *HR* LORazepam 2 MG/ML VIAL IM PRN (19:06)
[2018-01-20] MEDS ORDERED: traZODone 50 MG TABLET PO PRN (19:06)
[2018-01-20] MEDS ORDERED: Mag Hydrox/Al Hydrox/Simeth 30 ML UDC PO PRN (19:06)
[2018-01-20] MEDS ORDERED: *HR* LORazepam 1 MG TABLET PO PRN (19:06)
[2018-01-20] MEDS ORDERED: hydrOXYzine pamoate 25 MG CAPSULE PO PRN (19:10)
[2018-01-20] MEDS: Divalproex (12 HR) 250 MG TABLET PO SCH (21:20)
[2018-01-20] MEDS: Acetaminophen 325 MG TABLET PO PRN (21:20)
[2018-01-21] MEDS: Acetaminophen 325 MG TABLET PO PRN (08:56)
[2018-01-21] MEDS: Divalproex (12 HR) 250 MG TABLET PO SCH ×2 (08:56→22:01)
--- NOTE | 2018-01-21 13:06 | Psychiatry History & Physical ---
Date of Encounter: 01/21/18 Time of Encounter: 12:30 History of Present Illness Patient Stated Chief Complaint: Suicidal ideation, auditory hallucination Medicare Admission Attestation: For traditional Medicare patients the provided hospital inpatient services are reasonable and necessary and in the case of services not specified as inpatient -only under 42 CFR 419.22 (n), that they are appropriately provided as inpatient services in accordance 42 CFR 412.3. For Critical [facility] the patient may reasonably be expected to be discharged or transferred to a hospital within 96 hours after admission to the Critical Access Hospital. Admitted From: Emergency Dept History of Present Illness: Ms. Le is a 37 year old female admitted from the emergency department where she presented having suicidal ideation and commanding auditory hallucination telling her to kill herself, she was unable to sleep for several days and felt hopeless and helpless. UDS was positive for amphetamine, she admitted to using meth for several days. Patient was hospitalized in this units August 2017 for the first time and was placed on medication including Seroquel, Paxil, BuSpar, and Minipress. Patient did not follow-up or outpatient appointment and ran out of medication. She reports that she has been hospitalized several weeks ago . Patient is having increasing nightmares and voices related to an ex-boyfriend who killed himself couple years ago. Patient reports poor sleep, auditory hallucination commanding her to kill herself. Family is supportive and and watching the patient closely. Past Med Surg Social Fam HX - Past Medical History Medical history: seizures, other - Past Psychiatric History Psychiatric history: Reports: depression, PTSD, previous psychiatric hospitalization Past psychiatric history details: Hospitalized in August 2017 Family psychiatric history: Unknown Family History of Suicide: Unknown - Past Surgical History Surgical History: , cholecystectomy - Social History Smoking Status: Never smoker Smokeless Tobacco Status: No Alcohol use: none, occasionally Drug use: methamphetamine Medications & Allergies Quetiapine Fumarate [Seroquel] 50 mg PO QAM 01/18/18 [History] Buspirone HCl [Buspar] 7.5 mg PO TID 01/20/18 [History] Divalproex (12 HR) [Depakote (12 HR)] 250 mg PO BID 01/20/18 [History] Paroxetine HCl [Paxil] 20 mg PO QAM 01/20/18 [History] Prazosin [Minipress] 3 mg PO HS 01/20/18 [History] Quetiapine Fumarate [SEROquel] 300 mg PO HS 01/20/18 [History] hydrOXYzine HCl [Hydroxyzine HCl] 25 mg PO TID PRN 01/20/18 [History] 3 Allergy/AdvReac Type Severity Reaction Status Date / Time Penicillins Allergy Swelling Verified 01/21/18 10:41 of Lip/Tongue/Throat Review of Systems Psychiatric: Reports: abnormal sleep pattern, suicidal ideation, auditory hallucinations Exam - HEENT Head exam IM: Present: atraumatic Eye exam IM: Present: EOMI, normal appearance, PERRL ENT exam IM: Present: normal exam - Neurological Neurological exam: Present: CN II-XII intact - Respiratory Respiratory exam IM: Present: CTAB - GI/Abdominal GI/Abdominal exam IM: Present: normal bowel sounds, soft. Absent: tenderness - Extremities Extremities exam IM: Present: full ROM - Skin Skin exam IM: Present: dry, warm - Constitutional Vitals: Temp Pulse Resp BP Pulse Ox 98.2 F 99 16 141/97 98 01/21/18 09:00 01/21/18 09:00 01/21/18 09:00 01/21/18 09:00 01/20/18 13:51 General appearance: age & developmentally appropriate, well-groomed, well- nourished, unkempt, obese - Musculoskeletal Gait: normal Station: relaxed Strength & Tone: normal for patient - Psychiatric Patient Orientation: Yes Person, Yes Time, Yes Place Level of alertness: Alert Behavior: calm, cooperative Psychomotor activity: Slowed Eye Contact: Maintains Eye Contact Mood Description: Euthymic/stable Affect description: congruent with mood, full range Speech Volume: Normal Speech pattern: normal rate, normal rhythm, normal tone, fluent, spontaneous Language & Vocabulary: consistent with education Thought Process: Linear, Goal Oriented Thought Content: Yes Suicidal ideation, No Homicidal ideation, No Overt delusions Perceptual Disturbances: Yes Auditory hallucinations, No Visual hallucinations Attention Span Ability: Capable of Focused Attention Memory Description: Grossly Intact Patient Reliability: Reliable Historian Fund of knowledge: Yes abstraction ability, Yes average, Yes aware of current events Intelligence Estimate: Average Judgment: Limited Insight: Partial Results - Labs Labs: Laboratory Last Values WBC 6.6 K/mcL (4.3-11.1) 01/20/18 14:13 RBC 4.63 M/mcL (3.82-4.97) 01/20/18 14:13 Hgb 13.8 g/dL (11.5-15.4) 01/20/18 14:13 Hct 40.3 % (35.3-44.9) 01/20/18 14:13 MCV 87.0 fL (83.0-100.0) 01/20/18 14:13 MCH 29.8 pg (28.0-33.3) 01/20/18 14:13 MCHC 34.2 g/dL (31.6-35.5) 01/20/18 14:13 RDW 12.9 % (11.5-14.5) 01/20/18 14:13 Plt Count 267 K/mcL (140-400) 01/20/18 14:13 MPV 9.4 fL (9.4-12.4) 01/20/18 14:13 Immature Gran % 0.5 % (0-4) 01/20/18 14:13 Seg Neutrophils % 72.8 % 01/20/18 14:13 Lymphocytes % 16.5 % 01/20/18 14:13 Monocytes % 6.8 % 01/20/18 14:13 Eosinophils % 2.9 % 01/20/18 14:13 Basophils % 0.5 % 01/20/18 14:13 Neutrophils # 4.8 K/mcL (1.6-8.9) 01/20/18 14:13 Lymphocytes # 1.1 K/mcL (0.6-4.6) 01/20/18 14:13 Monocytes # 0.5 K/mcL (0.0-1.3) 01/20/18 14:13 Eosinophils # 0.2 K/mcL (0.0-0.6) 01/20/18 14:13 Basophils # 0.0 K/mcL (0.0-0.2) 01/20/18 14:13 Sodium 139 mEq/L (136-145) 01/20/18 14:13 Potassium 3.6 mEq/L (3.5-5.1) 01/20/18 14:13 Chloride 108 mEq/L (98-107) H 01/20/18 14:13 Carbon Dioxide 21 mEq/L (23-29) L 01/20/18 14:13 BUN 18 mg/dL (6-20) 01/20/18 14:13 Creatinine 0.74 mg/dL (0.60-1.20) 01/20/18 14:13 Est GFR ( Amer) > 60 (> 60) 01/20/18 14:13 Est GFR (Non-Af Amer) > 60 (> 60) 01/20/18 14:13 BUN/Creatinine Ratio 24 (6-26) 01/20/18 14:13 Glucose 130 mg/dL (70-105) H 01/20/18 14:13 Calculated Osmolality 292 (280-300) 01/20/18 14:13 Calcium 9.6 mg/dL (8.6-10.3) 01/20/18 14:13 Total Bilirubin 0.3 mg/dL (0.3-1.0) 01/20/18 14:13 Direct Bilirubin 0.1 mg/dL (0.0-0.2) 01/20/18 14:13 Indirect Bilirubin 0.2 mg/dL (0.0-1.2) 01/20/18 14:13 AST 27 Units/L (13-39) 01/20/18 14:13 ALT 31 Units/L (7-52) 01/20/18 14:13 Alkaline Phosphatase 77 Units/L (34-104) 01/20/18 14:13 Troponin I < 0.03 ng/mL (< 0.04) 01/20/18 14:13 Serum Total Protein 8.0 g/dL (6.4-8.9) 01/20/18 14:13 Albumin 4.0 g/dL (3.5-5.7) 01/20/18 14:13 Globulin 4.0 g/dL (2.4-3.5) H 01/20/18 14:13 Albumin/Globulin Ratio 1.0 (1.1-2.2) L 01/20/18 14:13 Serum , Qual Negative (Negative) 01/20/18 14:13 Salicylates < 2.5 mg/dL (15.0-30.0) L 01/20/18 14:13 Urine Opiates Screen Negative ng/mL (Kfedoh=221) 01/20/18 14:18 Acetaminophen < 10 mcg/mL (10-20) L 01/20/18 14:13 Ur Barbiturates Screen Negative ng/mL (Utnzxb=983) 01/20/18 14:18 Valproic Acid 5 mcg/mL (50-100) L 01/20/18 14:13 Ur Phencyclidine Scrn Negative ng/mL (Cutoff=25) 01/20/18 14:18 Ur Amphetamines Screen Positive ng/mL (Wjsokm=9798) H 01/20/18 14:18 U Benzodiazepines Scrn Negative ng/mL (Wozmmt=774) 01/20/18 14:18 Urine Cocaine Screen Negative ng/mL (Cutoff= 300) 01/20/18 14:18 U Marijuana (THC) Screen Negative ng/mL (Cutoff = 50) 01/20/18 14:18 Ethyl Alcohol < 10 mg/dL (Less than 10) 01/20/18 14:13 Assessment and Plan (1) Major depressive disorder without psychotic features Current visit: No Status: Acute Plan: Admit inpatient for safety and stabilization, Close observation, Suicide Precautions per unit protocol, Encourage participation in unit milieu, Group Therapy, Monitor sleep, Monitor appetite Additional Plan: Discussed medication changes with the patient, she is agreeable. See orders Risks, benefits, side effects, alternatives discussed w/pt: Yes Patient agreeable to treatment: Yes Estimated Length of Stay (Days): 7 Qualifiers: Major depression recurrence: recurrent Active/Remission status: currently active Major depression episode severity: severe Qualified Code(s): F33.2 - Major depressive disorder, recurrent severe without psychotic features (2) Methamphetamine abuse Current visit: No Status: Acute Plan: Admit inpatient for safety and stabilization, Close observation, Suicide Precautions per unit protocol, Encourage participation in unit milieu, Group Therapy, Monitor sleep, Monitor appetite Risks, benefits, side effects, alternatives discussed w/pt: Yes Patient agreeable to treatment: Yes
[2018-01-21] MEDS: ARIPiprazole 10 MG TABLET PO SCH (15:37)
[2018-01-21] MEDS: hydrOXYzine pamoate 25 MG CAPSULE PO PRN (16:21)
[2018-01-21] MEDS: traZODone 50 MG TABLET PO SCH (22:01)
--- NOTE | 2018-01-22 07:05 | Electrocardiograph Report ---
[facility] Test Date: 2018-01-20 Pat Name: Ness Le Department: 103 Room: Gender: F [employer]urse Framer: : 1980 Requested By: Parish Chapa Order Number: [id number] Reading MD: Arnie Figueroa Measurements Intervals [place] Rate: 90 P: 30 CT: 170 QRS: 3 QRSD: 85 T: 49 QT: 363 QTc: 411 Interpretive Statements SINUS RHYTHM MODERATE VOLTAGE CRITERIA FOR LVH, CONSIDER NORMAL VARIANT [MEETS CRITERIA IN ONE OF: R(aVL), S(V1), R(V5), R(V5/V6)+S(V1)] NONSPECIFIC T-WAVE ABNORMALITY Electronically Signed On 01-22-2018 7:03:16 EDT by Arnie Figueroa
[2018-01-22] MEDS: Divalproex (12 HR) 250 MG TABLET PO SCH ×2 (09:45→21:30)
[2018-01-22] MEDS: ARIPiprazole 10 MG TABLET PO SCH (09:45)
[2018-01-22] MEDS: hydrOXYzine pamoate 25 MG CAPSULE PO PRN (12:03)
--- NOTE | 2018-01-22 12:32 | Psychiatry Progress Note ---
Date of Encounter: 01/22/18 Time of Encounter: 12:10 Subjective Interval history: Patient seen for follow-up. Case discussed with nursing staff. Patient reports she continued to have loud voices and unable to relax during the day, she slept well at night. She reports Abilify was used before and was not effective. I showed her that that would make medication changes to replace Abilify. She is medication compliant, self isolated for the most part. Denied any suicidal ideation. Review of Systems Psychiatric: Reports: abnormal sleep pattern, suicidal ideation, auditory hallucinations Results - Vital Signs Vital Signs: Temp Pulse Resp BP Pulse Ox 97.2 F L 107 18 129/94 98 01/22/18 09:00 01/22/18 09:00 01/22/18 09:00 01/22/18 09:00 01/20/18 13:51 Assessment and Plan (1) Major depressive disorder without psychotic features Current visit: No Status: Acute Plan: Continue hospitalization, Close observation, Suicide Precautions per unit protocol, Encourage participation in unit milieu, Group Therapy, Monitor sleep, Monitor appetite Additional Plan: Discontinue Abilify. Risperdal 1 mg twice a day. Benefits side effects were discussed with the patient and she is agreeable to start. Risks, benefits, side effects, alternatives discussed w/pt: Yes Patient agreeable to treatment: Yes Qualifiers: Major depression recurrence: recurrent Active/Remission status: currently active Major depression episode severity: severe Qualified Code(s): F33.2 - Major depressive disorder, recurrent severe without psychotic features (2) Methamphetamine abuse Current visit: No Status: Acute Plan: Continue hospitalization, Close observation, Suicide Precautions per unit protocol, Encourage participation in unit milieu, Group Therapy, Monitor sleep, Monitor appetite Risks, benefits, side effects, alternatives discussed w/pt: Yes Patient agreeable to treatment: Yes Consult Discharge Plan - Plan Referrals: [facility] [Outside] - 01/27/18 10:30 am (The above appointment is with Radha Mccloud, counselor at [facility]. Your first appointment will be very thorough and the total appointment time will take between two and three hours. You will be completing paperwork, meeting with a counselor and a nurse, and developing a treatment plan. You will receive follow- up appointments for on-going services , which could include community support, mental health and substance abuse counseling, groups/partial hospitalization programming, medication assisted treatment, and psychiatric medication management. Please bring the following with you to your first visit to the clinic: 1) proof of household income (two consecutive pay stubs, social security award letter, bank statement, statement letter from [facility], child support statement, IRS 1040 or W2 form, or a statement from the person who financially supports you stating they help provide for your basic needs), 2) proof of residency (drivers license, a piece of mail showing your address, a statement from person you live with verifying you live at their address), 3) your social security card, 4) photo ID, and 5) your insurance card (if you have commercial insurance you must call to obtain a prior authorization number before you arrive to your first appointment). If you do not bring these items, you will not be seen. ) Marjorie Lara [Advanced Practice Nurse] - 01/31/18 11:00 am (The above appointment is with Marjorie Lara CNP, at Primary [facility]. This appointment is to establish you with a primary care provider. Your needs for medication and/or Vivitrol will be assessed and treated as indicated as well. Please arrive 15 minutes early to complete paperwork. Please bring your insurance card, photo ID and list of current medications to your first appointment. The above appointment(s) reflects first availability. You may contact the office regularly to check for cancellations that may allow you to be seen sooner.) Psychiatry Exam - Constitutional Vitals: Temp Pulse Resp BP Pulse Ox 97.2 F L 107 18 129/94 98 01/22/18 09:00 01/22/18 09:00 01/22/18 09:00 01/22/18 09:00 01/20/18 13:51 General appearance: age & developmentally appropriate, well-groomed, well- nourished, obese - Musculoskeletal Gait: normal Station: relaxed Strength & Tone: normal for patient - Psychiatric Patient Orientation: Yes Person, Yes Time, Yes Place Level of alertness: Alert Behavior: calm, cooperative Psychomotor activity: Normal Eye Contact: Maintains Eye Contact Mood Description: Euthymic/stable Affect description: congruent with mood, full range Speech Volume: Normal Speech pattern: normal rate, normal rhythm, normal tone, fluent, spontaneous Language & Vocabulary: consistent with education Thought Process: Linear, Goal Oriented Thought Content: No Suicidal ideation, No Homicidal ideation, No Overt delusions Perceptual Disturbances: Yes Auditory hallucinations, No Visual hallucinations Attention Span Ability: Unable to Focus Memory Description: Grossly Intact Patient Reliability: Reliable Historian Fund of knowledge: Yes abstraction ability, Yes aware of current events Intelligence Estimate: Average Judgment: Limited Insight: Partial
[2018-01-22] MEDS: risperiDONE 1 MG TABLET PO SCH ×2 (13:09→21:32)
[2018-01-22] MEDS: MOM Conc 10 ML UD.LIQ PO PRN (18:28)
[2018-01-22] MEDS: traZODone 50 MG TABLET PO SCH (21:29)
[2018-01-23] MEDS: risperiDONE 1 MG TABLET PO SCH ×2 (09:08→21:06)
[2018-01-23] MEDS: Divalproex (12 HR) 250 MG TABLET PO SCH ×2 (09:08→21:07)
[2018-01-23] MEDS: MOM Conc 10 ML UD.LIQ PO PRN (09:09)
--- NOTE | 2018-01-23 13:13 | Psychiatry Progress Note ---
Date of Encounter: 01/23/18 Time of Encounter: 13:11 Subjective Interval history: Patient is seen for follow-up. Case discussed with nursing staff. Patient reported having better sleep, denies any nightmares and reports the voices are less loud and less frequent. Staff report patient always spending most of time in her room isolating. She denies any side effects from medication changes. She was educated about the benefits side effects of Risperdal including hyperprolactinemia. She denies any suicidal thoughts and showing improvements. Review of Systems Psychiatric: Reports: abnormal sleep pattern, suicidal ideation, auditory hallucinations Results - Vital Signs Vital Signs: Temp Pulse Resp BP Pulse Ox 97.8 F 119 18 136/97 98 01/23/18 09:00 01/23/18 09:00 01/23/18 09:00 01/23/18 09:00 01/20/18 13:51 Assessment and Plan (1) Major depressive disorder without psychotic features Current visit: No Status: Acute Plan: Continue hospitalization, Close observation, Suicide Precautions per unit protocol, Encourage participation in unit milieu, Group Therapy, Monitor sleep, Monitor appetite Risks, benefits, side effects, alternatives discussed w/pt: Yes Patient agreeable to treatment: Yes Qualifiers: Major depression recurrence: recurrent Active/Remission status: currently active Major depression episode severity: severe Qualified Code(s): F33.2 - Major depressive disorder, recurrent severe without psychotic features (2) Methamphetamine abuse Current visit: No Status: Acute Plan: Continue hospitalization, Close observation, Suicide Precautions per unit protocol, Encourage participation in unit milieu, Group Therapy, Monitor sleep, Monitor appetite Risks, benefits, side effects, alternatives discussed w/pt: Yes Patient agreeable to treatment: Yes Consult Discharge Plan - Plan Referrals: [facility] [Outside] - 01/27/18 10:30 am (The above appointment is with Radha Mccloud, counselor at [facility]. Your first appointment will be very thorough and the total appointment time will take between two and three hours. You will be completing paperwork, meeting with a counselor and a nurse, and developing a treatment plan. You will receive follow- up appointments for on-going services , which could include community support, mental health and substance abuse counseling, groups/partial hospitalization programming, medication assisted treatment, and psychiatric medication management. Please bring the following with you to your first visit to the clinic: 1) proof of household income (two consecutive pay stubs, social security award letter, bank statement, statement letter from [facility], child support statement, IRS 1040 or W2 form, or a statement from the person who financially supports you stating they help provide for your basic needs), 2) proof of residency (drivers license, a piece of mail showing your address, a statement from person you live with verifying you live at their address), 3) your social security card, 4) photo ID, and 5) your insurance card (if you have commercial insurance you must call to obtain a prior authorization number before you arrive to your first appointment). If you do not bring these items, you will not be seen. ) Marjorie Lara [Advanced Practice Nurse] - 01/31/18 11:00 am (The above appointment is with Marjorie Lara CNP, at Primary [facility] within [facility]. This appointment is to establish you with a primary care provider. Your needs for medication and/or Vivitrol will be assessed and treated as indicated as well. Please arrive 15 minutes early to complete paperwork. Please bring your insurance card, photo ID and list of current medications to your first appointment. The above appointment(s) reflects first availability. You may contact the office regularly to check for cancellations that may allow you to be seen sooner.) Psychiatry Exam - Constitutional Vitals: Temp Pulse Resp BP Pulse Ox 97.8 F 119 18 136/97 98 01/23/18 09:00 01/23/18 09:00 01/23/18 09:00 01/23/18 09:00 01/20/18 13:51 General appearance: age & developmentally appropriate, well-groomed, well- nourished, obese - Musculoskeletal Gait: normal Station: relaxed Strength & Tone: normal for patient - Psychiatric Patient Orientation: Yes Person, Yes Time, Yes Place Level of alertness: Alert Behavior: calm, cooperative, guarded Psychomotor activity: Slowed Eye Contact: Maintains Eye Contact Mood Description: Euthymic/stable Affect description: congruent with mood, blunted Speech Volume: Normal Speech pattern: normal rate, normal rhythm, normal tone, fluent, spontaneous Language & Vocabulary: consistent with education Thought Process: Linear, Goal Oriented Thought Content: No Suicidal ideation, No Homicidal ideation, No Overt delusions Perceptual Disturbances: Yes Auditory hallucinations, No Visual hallucinations Attention Span Ability: Capable of Focused Attention Memory Description: Grossly Intact Patient Reliability: Reliable Historian Fund of knowledge: Yes abstraction ability, Yes aware of current events Intelligence Estimate: Average Judgment: Limited Insight: Partial
[2018-01-23] MEDS: hydrOXYzine pamoate 25 MG CAPSULE PO PRN (16:57)
[2018-01-23] MEDS: traZODone 50 MG TABLET PO SCH (21:07)
[2018-01-24] MEDS: Acetaminophen 325 MG TABLET PO PRN (06:48)
[2018-01-24] MEDS: risperiDONE 1 MG TABLET PO SCH ×2 (08:34→21:18)
[2018-01-24] MEDS: Divalproex (12 HR) 250 MG TABLET PO SCH (08:34)
[2018-01-24] MEDS: hydrOXYzine pamoate 25 MG CAPSULE PO PRN ×2 (11:39→21:17)
[2018-01-24] MEDS ORDERED: hydrOXYzine pamoate 25 MG CAPSULE PO PRN (14:33)
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
[2018-01-24] MEDS: traZODone 50 MG TABLET PO SCH (21:18)
[2018-01-24] MEDS: Divalproex (12 HR) 500 MG TABLET PO SCH (21:18)
[2018-01-25] MEDS: risperiDONE 1 MG TABLET PO SCH (08:42)
[2018-01-25] MEDS: Divalproex (12 HR) 500 MG TABLET PO SCH ×2 (08:42→20:03)
--- NOTE | 2018-01-25 11:20 | Psychiatry Progress Note ---
Date of Encounter: 01/25/18 Time of Encounter: 11:00 Subjective Interval history: The patient has come in and has had no auditory hallucinations. She improved a little bit last night. The patient still would like Vistaril on a when necessary basis. She has both 25 and 50 mg doses. Patient has been on BuSpar notes anxiety is been a major concern for her she is willing to increase to 10 mg 3 times a day. The patient feels that the risperidone was not helpful but restoring Seroquel the previous dose was helpful. The patient does have a follow-up appointment on the and is willing to be discharged to home. She will return to reside with her mother and sister. Nonetheless the patient would like an action plan because sometimes the voices get water or sometimes she is confronted by other people and gets very upset. Therefore the hydroxyzine 50 mg 3 times a day would be helpful she will meet with her therapist on but will have a new prescriber so I discussed the importance of discussing the action plan we discussed another action plan to help with auditory hallucinations including listening to music talking others reading single Pledge of Allegiance backwards. The patient verbalized understanding. She reports no acute homicidal or suicidal ideation this time. She notes headaches and vertigo and problems she is having her head injury. She is tolerating the Depakote the higher dosage no current seizures or other side effects such as tremors Review of Systems Neurological: Reports: vertigo Psychiatric: Reports: depression, anxiety, abnormal sleep pattern, suicidal ideation, auditory hallucinations, irritability Results - Vital Signs Vital Signs: Temp Pulse Resp BP Pulse Ox 97.2 F L 114 16 130/90 98 01/25/18 08:53 01/25/18 08:53 01/25/18 08:53 01/25/18 08:53 01/20/18 13:51 Assessment and Plan (1) Severe recurrent major depressive disorder with psychotic symptoms Current visit: Yes Status: Acute Plan: Continue hospitalization, Close observation Risks, benefits, side effects, alternatives discussed w/pt: Yes Patient agreeable to treatment: Yes (2) Other stimulant dependence, uncomplicated Current visit: Yes Status: Chronic Plan: Encourage participation in unit milieu, Monitor appetite Risks, benefits , side effects, alternatives discussed w/pt: Yes Patient agreeable to treatment: Yes (3) Seizure Current visit: Yes Status: Acute Plan: Encourage participation in unit milieu Risks, benefits, side effects, alternatives discussed w/pt: Yes Patient agreeable to treatment: Yes Consult Discharge Plan - Plan Referrals: [facility] [Outside] - 01/27/18 10:30 am (The above appointment is with Radha Mccloud, counselor at [facility]. Your first appointment will be very thorough and the total appointment time will take between two and three hours. You will be completing paperwork, meeting with a counselor and a nurse, and developing a treatment plan. You will receive follow- up appointments for on-going services , which could include community support, mental health and substance abuse counseling, groups/partial hospitalization programming, medication assisted treatment, and psychiatric medication management. Please bring the following with you to your first visit to the clinic: 1) proof of household income (two consecutive pay stubs, social security award letter, bank statement, statement letter from [facility], child support statement, IRS 1040 or W2 form, or a statement from the person who financially supports you stating they help provide for your basic needs), 2) proof of residency (drivers license, a piece of mail showing your address, a statement from person you live with verifying you live at their address), 3) your social security card, 4) photo ID, and 5) your insurance card (if you have commercial insurance you must call to obtain a prior authorization number before you arrive to your first appointment). If you do not bring these items, you will not be seen. ) Marjorie Lara [Advanced Practice Nurse] - 01/31/18 11:00 am (The above appointment is with Marjorie Lara CNP, at [facility] within [facility]. This appointment is to establish you with a primary care provider. Your needs for medication and/or Vivitrol will be assessed and treated as indicated as well. Please arrive 15 minutes early to complete paperwork. Please bring your insurance card, photo ID and list of current medications to your first appointment. The above appointment(s) reflects first availability. You may contact the office regularly to check for cancellations that may allow you to be seen sooner.) Psychiatry Exam - Constitutional Vitals: Temp Pulse Resp BP Pulse Ox 97.2 F L 114 16 130/90 98 01/25/18 08:53 01/25/18 08:53 01/25/18 08:53 01/25/18 08:53 01/20/18 13:51 General appearance: age & developmentally appropriate, unkempt - Musculoskeletal Gait: normal Station: other Strength & Tone: normal for patient - Psychiatric Patient Orientation: Yes Person, Yes Time, Yes Place, Yes Circumstance Level of alertness: Alert Behavior: calm Psychomotor activity: Normal Eye Contact: Maintains Eye Contact Mood Description: Depressed, Irritable Affect description: dysphoric Speech Volume: Normal Speech pattern: normal rate Language & Vocabulary: consistent with education Thought Process: Intact Thought Content: Yes Intact, Yes Suicidal ideation Perceptual Disturbances: Yes Auditory hallucinations Attention Span Ability: Capable of Focused Attention Memory Description: Grossly Intact Patient Reliability: Questionable Historian Fund of knowledge: Yes average Intelligence Estimate: Average Judgment: Limited Insight: Minimal
[2018-01-25] MEDS: traZODone 50 MG TABLET PO SCH (20:03)
[2018-01-26] MEDS: Divalproex (12 HR) 500 MG TABLET PO SCH (09:05)
[2018-01-26 10:27] VITALS: BP 129/89
--- NOTE | 2018-01-26 11:55 | Discharge Summary ---
Date of Encounter: 01/26/18 Time of Encounter: 10:15 Diagnosis - Discharge Diagnosis (1) Severe recurrent major depressive disorder with psychotic symptoms Priority: Primary Status: Acute (2) Other stimulant dependence, uncomplicated Priority: Secondary Status: Chronic (3) Seizure Priority: Secondary Status: Acute Medications - Discharge Medications Prescriptions: Buspirone HCl [Buspar] 10 mg PO TID 30 Days #90 tablet Divalproex (12 HR) [Depakote (12 HR)] 500 mg PO BID 30 Days #60 tablet. hydrOXYzine pamoate [HydrOXYzine Pamoate] 50 mg PO TID PRN 30 Days #90 capsule PRN Reason: Anxiety Paroxetine HCl [Paxil] 20 mg PO QAM 30 Days #30 tablet Prazosin [Minipress] 3 mg PO HS 90 Days #30 capsule Quetiapine Fumarate [Seroquel] 300 mg PO HS 30 Days #30 tablet Quetiapine Fumarate [Seroquel] 300 mg PO HS 30 Days #30 tablet Quetiapine Fumarate [Seroquel] 50 mg PO QAM 30 Days #30 tablet traZODone [TraZODone] 100 mg PO HS 30 Days #30 tablet Buspirone HCl [Buspar] 10 mg PO TID 30 Days #90 tablet 01/26/18 [Rx] Divalproex (12 HR) [Depakote (12 HR)] 500 mg PO BID 30 Days #60 tablet. [Rx] Paroxetine HCl [Paxil] 20 mg PO QAM 30 Days #30 tablet 01/26/18 [Rx] Prazosin [Minipress] 3 mg PO HS 90 Days #30 capsule 01/26/18 [Rx] Quetiapine Fumarate [Seroquel] 50 mg PO QAM 30 Days #30 tablet 01/26/18 [Rx] Quetiapine Fumarate [Seroquel] 300 mg PO HS 30 Days #30 tablet 01/26/18 [Rx] Quetiapine Fumarate [Seroquel] 300 mg PO HS 30 Days #30 tablet 01/26/18 [Rx] hydrOXYzine pamoate [HydrOXYzine Pamoate] 50 mg PO TID PRN 30 Days #90 capsule 01/26/18 [Rx] traZODone [TraZODone] 100 mg PO HS 30 Days #30 tablet 04/18/18 [Rx] 3 Allergy/AdvReac Type Severity Reaction Status Date / Time Penicillins Allergy Swelling Verified 01/21/18 10:41 of Lip/Tongue/Throat Provider Date of admission: 01/20/18 18:36 Primary care physician: PCP NONE Discharging clinician: Babatunde Cornelius Psychiatry Exam - Constitutional Vitals: Temp Pulse Resp BP Pulse Ox 98.2 F 127 16 129/89 98 01/26/18 09:00 01/26/18 09:00 01/26/18 09:00 01/26/18 09:00 01/20/18 13:51 Hospital Course Hospital course: Ms. Le is a 37 year old female The patient was seen for admission and had increasing auditory hallucinations. The reader is referred to the history and physical. The patient's hospital course was significant for complaints of hallucinations and difficulty with sleep headache and vertigo. The patient's headache and vertigo may have come from head injury that she sustained. The patient also has a history of seizures but did not have any seizures while hospitalized. Nonetheless the Depakote level was not checked prior to admission but at the dose of 250 twice a day was increased to 500. A trial of risperidone 1 mg twice a day did not seem to help with sleep mood or hallucinations and was discontinued. The patient was placed on hydroxyzine 50 mg 3 times a day when necessary for anxiety. She tolerated this well BuSpar was increased to 10 mg 3 times a day to help with anxiety. The patient wished to remain on the same dose of Seroquel was helpful. Arrangements were made for the medicine to be sent to the local pharmacy and her follow-up was scheduled for January 27 at the [facility]. The patient reported less anxious and is less irritability better control of mood swings and no suicidal ideation at the time discharge auditory hallucinations and gone down. The patient felt that she was ready to go on outpatient basis. The plan was for her to be picked up by her sister went to live with her sister and mother. Patient's where the resources available to her. Time spent discussing smoking cessation with patient: 3 to 10 minutes Does patient wish to continue nicotine replacement upon disc: No - Time Spent with Patient Total time spent providing and/or coordinating discharge services: Less than 30 minutes Assessment and Plan - Patient/Caregiver Discharge Instructions Diet: regular diet - Follow up Plan Follow up with: [facility] [Outside] - 01/27/18 10:30 am (The above appointment is with Radha Mccloud, counselor at [facility]. Your first appointment will be very thorough and the total appointment time will take between two and three hours. You will be completing paperwork, meeting with a counselor and a nurse, and developing a treatment plan. You will receive follow- up appointments for on-going services , which could include community support, mental health and substance abuse counseling, groups/partial hospitalization programming, medication assisted treatment, and psychiatric medication management. Please bring the following with you to your first visit to the clinic: 1) proof of household income (two consecutive pay stubs, social security award letter, bank statement, statement letter from [facility], child support statement, IRS 1040 or W2 form, or a statement from the person who financially supports you stating they help provide for your basic needs), 2) proof of residency (drivers license, a piece of mail showing your address, a statement from person you live with verifying you live at their address), 3) your social security card, 4) photo ID, and 5) your insurance card (if you have commercial insurance you must call to obtain a prior authorization number before you arrive to your first appointment). If you do not bring these items, you will not be seen. ) Marjorie Lara [Advanced Practice Nurse] - 01/31/18 11:00 am (The above appointment is with Marjorie Lara CNP, at Primary [facility] within [facility]. This appointment is to establish you with a primary care provider. Your needs for medication and/or Vivitrol will be assessed and treated as indicated as well. Please arrive 15 minutes early to complete paperwork. Please bring your insurance card, photo ID and list of current medications to your first appointment. The above appointment(s) reflects first availability. You may contact the office regularly to check for cancellations that may allow you to be seen sooner.) Functional capacity at discharge: independent ambulation Overall status at discharge: Stable Disposition: Home, Self-Care Quality - Multiple Antipsychotics Patient discharged on 2 or more antipsychotic medications: No
== END 2018-01-26 15:25 | disposition home or self-care (01) | DRG 751 ==
LOC: EMEROO 13:49 → SUATTDRO 18:36 → 1ANU 18:36
PROVIDERS: ADMIT Psychiatry & Neurology Psychiatry; ATTEND Psychiatry & Neurology Forensic Psychiatry

== ENCOUNTER 2018-03-04 11:33 | Inpatient (IN) ==
[2018-03-04] MEDS ORDERED: methylPREDNISolone 125 MG/2 ML VIAL IM STA (11:41)
[2018-03-04] MEDS ORDERED: Orphenadrine 60 MG/2 ML VIAL IM ONE (11:41)
--- NOTE | 2018-03-04 11:45 | Emergency Department Note ---
Disposition Clinical Impression: Pulmonary embolism Qualifiers: Pulmonary embolism type: other Chronicity: unspecified Acute cor pulmonale presence: without acute cor pulmonale Qualified Code(s): I26.99 - Other pulmonary embolism without acute cor pulmonale Disposition: Admitted As Inpatient Condition: Fair Referrals: NONE,PCP [Primary Care Provider] - Forms: ED Satisfaction Letter Time of Disposition: 16:09 Back Pain HPI - General Chief Complaint: ED Back Pain/Injury Stated Complaint: back pain Time Seen by Provider: 03/04/18 11:40 Source: patient Limitations: no limitations Nursing Notes Reviewed: Yes Vital Signs Reviewed: Yes - History of Present Illness HPI Narrative: Nontoxic-appearing 37-year-old female presents for evaluation of low lumbar back pain that radiates into the right hip and down the posterior and lateral aspects of the right lower extremity. She does state she suffered a minor mechanical fall yesterday however this pain did not begin until her awakening this morning. She describes pain as sharp in nature. She denies any urinary retention, urinary symptoms, saddle anesthesia, loss of bowel or bladder control , fever, abdominal pain, nausea, or numbness/tingling/weakness of the lower extremities. Pt Subjective Complaint: back pain Onset (ago): day(s) (Upon waking this morning) Duration: gradually worsening Similar Symptoms Previously: No Location: lumbar spine Pain Severity: severe Pain Scale: 8 Quality: sharp Radiation: buttocks (Right buttock), right leg Improves with: none Worsens with: movement Associated symptoms: Denies: numbness, weakness, difficulty walking, incontinence of bowel/bladder, fever, chills, abdominal pain, dysuria, hematuria - Related Data Previous Rx's Medication Instructions Recorded Buspirone HCl [Buspar] 10 mg PO TID 30 Days #90 tablet 01/26/18 Divalproex (12 HR) [Depakote (12 500 mg PO BID 30 Days #60 tablet.dr 01/26/18 HR)] Paroxetine HCl [Paxil] 20 mg PO QAM 30 Days #30 tablet 01/26/18 Prazosin [Minipress] 3 mg PO HS 90 Days #30 capsule 01/26/18 Quetiapine Fumarate [Seroquel] 50 mg PO QAM 30 Days #30 tablet 01/26/18 Quetiapine Fumarate [Seroquel] 300 mg PO HS 30 Days #30 tablet 01/26/18 hydrOXYzine pamoate [HydrOXYzine 50 mg PO TID PRN 30 Days #90 01/26/18 Pamoate] capsule traZODone [TraZODone] 100 mg PO HS 30 Days #30 tablet 01/26/18 Allergies Allergy/AdvReac Type Severity Reaction Status Date / Time Penicillins Allergy Swelling Verified 01/21/18 10:41 of Lip/Tongue/Throat All systems ED: reviewed and negative except as stated. Constitutional: Denies: fever, chills, weakness, weight change Eyes: Denies: eye pain, eye discharge, vision change ENT ED: Denies: ear pain, throat pain, dental pain, hearing loss, epistaxis, congestion, dysphagia Cardiovascular: Denies: chest pain, palpitations, dyspnea on exertion, edema, syncope Respiratory: Denies: cough, dyspnea, wheezes, hemoptysis, stridor Gastrointestinal: Denies: abdominal pain, nausea, vomiting, diarrhea, constipation, hematemesis, melena, hematochezia Genitourinary: Denies: dysuria, frequency, hematuria, discharge Musculoskeletal: Reports: as per HPI, back pain. Denies: neck pain, arthralgia , myalgia Integumentary: Denies: rash, abrasion, lesions Neurological: Denies: headache, weakness, numbness, paresthesias, confusion, abnormal gait, vertigo Psychiatric: Denies: anxiety, depression, suicidal thoughts, homicidal thoughts , auditory hallucinations, visual hallucinations Endocrine: Denies: fatigue Hematological/Lymphatic: Denies: easy bleeding, easy bruising Allergic/Immunologic: Denies: facial swelling, urticaria Past Medical History - Past Medical History Attestation: Yes The following information was validated with the patient. Source: patient, nursing notes reviewed Medical history: Reports: seizures, other Surgical history: Reports: , cholecystectomy Psychiatric history: Reports: depression, PTSD, previous psychiatric hospitalization [employer] history: Reports: bilateral tubal ligation - Social History Smoking Status: Never smoker Smokeless Tobacco Status: No Alcohol use: Reports: none, occasionally Drug use: Reports: methamphetamine Physical Exam - General Limitations: no limitations General appearance: alert, anxious - Head Head exam: atraumatic, normocephalic, normal inspection - Eye Eye exam: Present: normal appearance, PERRL, EOMI. Absent: nystagmus - ENT ENT exam: mucous membranes moist - Neck Neck exam: Present: normal inspection, full ROM, trachea midline - Chest Chest inspection: Present: normal inspection, symmetric chest wall rise - Abdominal Exam Abdominal exam: Present: soft, Non-Tender - Extremities Exam Extremities exam: Present: normal inspection, full ROM. Absent: tenderness, pedal edema - Back Exam Back exam: Present: tenderness, paraspinal tenderness (Right lumbar paraspinal musculature), vertebral tenderness (Lumbar region), sciatic notch tenderness (R) , straight leg raise (R). Absent: sciatic notch tenderness (L), straight leg raise (L) - Neurological Exam Neurological exam: Present: alert, oriented X3, normal gait, reflexes normal - Expanded Neurological Exam Motor strength - LUE: 5/5 Motor strength - RUE: 5/5 Motor strength - LLE: 5/5 Motor strength - RLE: 5/5 Coma Scale Eye Opening: Spontaneous Coma Scale Motor Response: Obeys Commands Coma Scale Verbal Response: Oriented Coma Scale Total: 15 - Psychiatric Psychiatric exam: Present: normal affect, normal mood - Skin Skin exam: Present: warm, dry, intact, normal color. Absent: rash Course Course Narrative: The patient presented with symptoms that were consistent with lumbar radiculopathy. She had lower lumbar tenderness with right-sided lumbar paraspinal musculature tenderness to palpation as well as tenderness with palpation of the right sciatic notch. She had a positive straight leg test with the right. She stated that her pain radiated in the right buttock and down the posterior and lateral aspects of the right leg. Upon repeat examination, the patient stated that the pain was now starting to become worse with inspiration and was now wrapping around into the right anterior lower rib cage. She was slightly tachycardic at a rate of 112 bpm. Because of these newfound findings, a d-dimer was ordered and found to be significantly elevated. We will proceed with a CTA of the chest to rule out a pulmonary embolism as a source of this patient's pain. I was contacted by the radiologist regarding the findings of bilateral segmental /subsegmental pulmonary emboli in the bilateral lung bases as well as a questionable developing infarct in the right lung base. The patient also has multiple enlarged lymph nodes. Recommendation for mammography to rule out metastatic lymphadenopathy or lymphoma. I discussed these findings with Dr. Carr, ED attending. He is in agreement with admission to the hospitalist service. He recommends the administration of Lovenox subcutaneously, 1 mg/kg. CT findings that question atypical infection are of concern given the patient's recent seizure activity from yesterday that caused her to fall. Because of such , we will treat for the possibility of an aspiration pneumonia with Levaquin and Flagyl. Dr. Carr has spoken with the hospitalist, Dr. Prescott. She accepts the patient for admission but requested that pulmonary be consulted with. Dr. Carr had spoken with Dr. Jo, profiling machine set up operator. He agrees with this plan. He says that he is available for consult if needed. Valproic acid loading dose confirmed with in-house pharmacy. Vital Signs Temperature 98.6 F 03/04/18 11:33 Pulse Rate 111 03/04/18 11:33 Respiratory Rate 20 03/04/18 11:33 Blood Pressure 146/97 03/04/18 11:33 O2 Sat by Pulse Oximetry 97 03/04/18 11:33 Temperature 98.6 F 03/04/18 11:33 Pulse Rate 111 03/04/18 11:33 Respiratory Rate 20 03/04/18 11:33 Blood Pressure 146/97 03/04/18 11:33 O2 Sat by Pulse Oximetry 97 03/04/18 11:33 Oxygen Delivery Oxygen Delivery Room Air Back Pain/Injury - Medical Records Medical records reviewed: Yes I reviewed the patient's medical records. - Lab Data Lab results reviewed: Yes I reviewed the patient's lab results. Lab results narrative: Lab Results 03/04/18 03/04/18 03/04/18 Range/Units 12:55 12:58 12:58 WBC 8.4 (4.3-11.1) K/mcL RBC 4.27 (3.82-4.97) M/mcL Hgb 12.7 (11.5-15.4) g/dL Hct 37.7 (35.3-44.9) % MCV 88.3 (83.0-100.0) fL MCH 29.7 (28.0-33.3) pg MCHC 33.7 (31.6-35.5) g/dL RDW 13.2 (11.5-14.5) % Plt Count 208 (140-400) K/mcL MPV 9.5 (9.4-12.4) fL Immature Gran % 0.5 (0-4) % Seg Neutrophils % 77.9 % Lymphocytes % 13.0 % Monocytes % 8.3 % Eosinophils % 0.2 % Basophils % 0.1 % Neutrophils # 6.5 (1.6-8.9) K/mcL Lymphocytes # 1.1 (0.6-4.6) K/mcL Monocytes # 0.7 (0.0-1.3) K/mcL Eosinophils # 0.0 (0.0-0.6) K/mcL Basophils # 0.0 (0.0-0.2) K/mcL D-Dimer 2070 H (0-500) ng/mLFEU Sodium (136-145) mEq/L Potassium (3.5-5.1) mEq/L Chloride (98-107) mEq/L Carbon Dioxide (23-29) mEq/L BUN (6-20) mg/dL Creatinine (0.60-1.20) mg/dL Est GFR ( Amer) (> 60) Est GFR (Non-Af Amer) (> 60) BUN/Creatinine Ratio (6-26) Glucose (70-105) mg/dL Calculated Osmolality (280-300) Calcium (8.6-10.3) mg/dL Urine Color Dark Yellow (Yellow) Urine Clarity Cloudy A (Clear) Urine pH 6.0 (5.0-8.0) pH Units Ur Specific [place] > 1.030 H (1.010-1.025) Urine Protein 30 H (Neg-Trace) mg/dL Urine Glucose (UA) Normal (Normal) mg/dL Urine Ketones Trace H (Negative) mg/dL Urine Blood Negative (Negative) Urine Nitrite Negative (Negative) Urine Bilirubin Small H (Negative) Urine Urobilinogen Normal (Normal) mg/dL Ur Leukocyte Esterase Negative (Negative) Urine Microscopic RBC 5-15 H (0-3) per hpf Urine Microscopic WBC 3-5 H (0-3) per hpf Ur Squamous Epith Cells Many H (None-Few) per lpf Urine Bacteria None Seen (None-Few) per hpf Hyaline Casts None Seen (None-Few) per lpf Ur Culture Indicated? NO (NO) Valproic Acid (50-100) mcg/mL 03/04/ Range/Units 12:58 WBC (4.3-11.1) K/mcL RBC (3.82-4.97) M/mcL Hgb (11.5-15.4) g/dL Hct (35.3-44.9) % MCV (83.0-100.0) fL MCH (28.0-33.3) pg MCHC (31.6-35.5) g/dL RDW (11.5-14.5) % Plt Count (140-400) K/mcL MPV (9.4-12.4) fL Immature Gran % (0-4) % Seg Neutrophils % % Lymphocytes % % Monocytes % % Eosinophils % % Basophils % % Neutrophils # (1.6-8.9) K/mcL Lymphocytes # (0.6-4.6) K/mcL Monocytes # (0.0-1.3) K/mcL Eosinophils # (0.0-0.6) K/mcL Basophils # (0.0-0.2) K/mcL D-Dimer (0-500) ng/mLFEU Sodium 134 L (136-145) mEq/L Potassium 3.7 (3.5-5.1) mEq/L Chloride 102 (98-107) mEq/L Carbon Dioxide 24 (23-29) mEq/L BUN 13 (6-20) mg/dL Creatinine 0.93 (0.60-1.20) mg/dL Est GFR ( Amer) > 60 (> 60) Est GFR (Non-Af Amer) > 60 (> 60) BUN/Creatinine Ratio 14 (6-26) Glucose 108 H (70-105) mg/dL Calculated Osmolality 279 L (280-300) Calcium 9.4 (8.6-10.3) mg/dL Urine Color (Yellow) Urine Clarity (Clear) Urine pH (5.0-8.0) pH Units Ur Specific [place] (1.010-1.025) Urine Protein (Neg-Trace) mg/dL Urine Glucose (UA) (Normal) mg/dL Urine Ketones (Negative) mg/dL Urine Blood (Negative) Urine Nitrite (Negative) Urine Bilirubin (Negative) Urine Urobilinogen (Normal) mg/dL Ur Leukocyte Esterase (Negative) Urine Microscopic RBC (0-3) per hpf Urine Microscopic WBC (0-3) per hpf Ur Squamous Epith Cells (None-Few) per lpf Urine Bacteria (None-Few) per hpf Hyaline Casts (None-Few) per lpf Ur Culture Indicated? (NO) Valproic Acid < 4 L (50-100) mcg/mL Result diagrams: 03/04/18 12:58 03/04/18 12:58 Lab Results 03/04/18 03/04/18 03/04/18 Range/Units 12:55 12:58 12:58 WBC 8.4 (4.3-11.1) K/mcL RBC 4.27 (3.82-4.97) M/mcL Hgb 12.7 (11.5-15.4) g/dL Hct 37.7 (35.3-44.9) % MCV 88.3 (83.0-100.0) fL MCH 29.7 (28.0-33.3) pg MCHC 33.7 (31.6-35.5) g/dL RDW 13.2 (11.5-14.5) % Plt Count 208 (140-400) K/mcL MPV 9.5 (9.4-12.4) fL Immature Gran % 0.5 (0-4) % Seg Neutrophils % 77.9 % Lymphocytes % 13.0 % Monocytes % 8.3 % Eosinophils % 0.2 % Basophils % 0.1 % Neutrophils # 6.5 (1.6-8.9) K/mcL Lymphocytes # 1.1 (0.6-4.6) K/mcL Monocytes # 0.7 (0.0-1.3) K/mcL Eosinophils # 0.0 (0.0-0.6) K/mcL Basophils # 0.0 (0.0-0.2) K/mcL D-Dimer 2070 H (0-500) ng/mLFEU Sodium (136-145) mEq/L Potassium (3.5-5.1) mEq/L Chloride (98-107) mEq/L Carbon Dioxide (23-29) mEq/L BUN (6-20) mg/dL Creatinine (0.60-1.20) mg/dL Est GFR ( Amer) (> 60) Est GFR (Non-Af Amer) (> 60) BUN/Creatinine Ratio (6-26) Glucose (70-105) mg/dL Calculated Osmolality (280-300) Calcium (8.6-10.3) mg/dL Urine Color Dark Yellow (Yellow) Urine Clarity Cloudy A (Clear) Urine pH 6.0 (5.0-8.0) pH Units Ur Specific [place] > 1.030 H (1.010-1.025) Urine Protein 30 H (Neg-Trace) mg/dL Urine Glucose (UA) Normal (Normal) mg/dL Urine Ketones Trace H (Negative) mg/dL Urine Blood Negative (Negative) Urine Nitrite Negative (Negative) Urine Bilirubin Small H (Negative) Urine Urobilinogen Normal (Normal) mg/dL Ur Leukocyte Esterase Negative (Negative) Urine Microscopic RBC 5-15 H (0-3) per hpf Urine Microscopic WBC 3-5 H (0-3) per hpf Ur Squamous Epith Cells Many H (None-Few) per lpf Urine Bacteria None Seen (None-Few) per hpf Hyaline Casts None Seen (None-Few) per lpf Ur Culture Indicated? NO (NO) Valproic Acid (50-100) mcg/mL 03/04/18 Range/Units 12:58 WBC (4.3-11.1) K/mcL RBC (3.82-4.97) M/mcL Hgb (11.5-15.4) g/dL Hct (35.3-44.9) % MCV (83.0-100.0) fL MCH (28.0-33.3) pg MCHC (31.6-35.5) g/dL RDW (11.5-14.5) % Plt Count (140-400) K/mcL MPV (9.4-12.4) fL Immature Gran % (0-4) % Seg Neutrophils % % Lymphocytes % % Monocytes % % Eosinophils % % Basophils % % Neutrophils # (1.6-8.9) K/mcL Lymphocytes # (0.6-4.6) K/mcL Monocytes # (0.0-1.3) K/mcL Eosinophils # (0.0-0.6) K/mcL Basophils # (0.0-0.2) K/mcL D-Dimer (0-500) ng/mLFEU Sodium 134 L (136-145) mEq/L Potassium 3.7 (3.5-5.1) mEq/L Chloride 102 (98-107) mEq/L Carbon Dioxide 24 (23-29) mEq/L BUN 13 (6-20) mg/dL Creatinine 0.93 (0.60-1.20) mg/dL Est GFR ( Amer) > 60 (> 60) Est GFR (Non-Af Amer) > 60 (> 60) BUN/Creatinine Ratio 14 (6-26) Glucose 108 H (70-105) mg/dL Calculated Osmolality 279 L (280-300) Calcium 9.4 (8.6-10.3) mg/dL Urine Color (Yellow) Urine Clarity (Clear) Urine pH (5.0-8.0) pH Units Ur Specific [place] (1.010-1.025) Urine Protein (Neg-Trace) mg/dL Urine Glucose (UA) (Normal) mg/dL Urine Ketones (Negative) mg/dL Urine Blood (Negative) Urine Nitrite (Negative) Urine Bilirubin (Negative) Urine Urobilinogen (Normal) mg/dL Ur Leukocyte Esterase (Negative) Urine Microscopic RBC (0-3) per hpf Urine Microscopic WBC (0-3) per hpf Ur Squamous Epith Cells (None-Few) per lpf Urine Bacteria (None-Few) per hpf Hyaline Casts (None-Few) per lpf Ur Culture Indicated? (NO) Valproic Acid < 4 L (50-100) mcg/mL - Radiology Data Radiology results reviewed: Yes I reviewed the patient's radiology results. Lumbar Spine X-Ray 03/04/18 11:47 IMPRESSION: Unremarkable examination of the lumbar spine. D/ / Diego Guajardo MD / Diego Guajardo MD Interpreting Provider: Diego Guajardo MD Chest CTA 03/04/18 13:29 IMPRESSION: Acute pulmonary emboli are seen in the lower lobe segmental and subsegmental branches bilaterally. Subsegmental right basilar airspace disease posteriorly could be related to a developing infarct. Patchy ground-glass changes are seen in the lung bases bilaterally which could be related to mild edematous change, atelectasis or atypical infection. There is a new 6.6 mm pulmonary nodule seen in the right middle lobe, not seen in 2012. There is also a clustered area of tiny centrilobular nodules seen in the right middle lobe which can be seen in the setting of bronchiolitis. Pulmonary nodule follow-up criteria are available for reference below. Increasing size of a left and right axillary lymph node, both of which are enlarged. The left axillary lymph node has increased from 1.9 x 1.7 cm to 2.3 x 2.2 cm since 2011. The right axillary lymph node measures 17.7 x 12.5 mm, previously measuring 13.9 x 11.6 mm. If the patient has not undergone mammography, recommend further mammographic evaluation. Cannot exclude the possibility of metastatic lymphadenopathy or lymphoma. There is a mildly enlarged right peritracheal lymph node, measuring 11 mm in short axis, previously measuring 8 mm in greatest dimension. There is also an enlarged right hilar lymph node, which could be reactive. This was called to and discussed with Dr. Choudhary at 3:54 p.m. on 03/04/2018. D/ / Conrad Jesus MD / Conrad Jesus MD Interpreting Provider: Conrad Jesus MD Attestation Statement - Attestation Attestation: I, Nick Carr DO have provided [id number] time during the care of this patient. Detailed review the presentation, symptoms, medical history were discussed and reviewed with the mid-level provider Chai Choudhary PA-C/[facility] DRILLER. Medical intervention labs and imaging studies were reviewed in detail. See full documentation of physical exam and course of care in the mid-level provider's note. I agree with the determined course of care, medical intervention and disposition put forth by the mid-level provider. See below documentation for changes or alterations in documentation.
[2018-03-04 13:14] LABS: Bilirubin,Urine Small (Negative); Blood,Urine Negative (Negative); Clarity,Urine Cloudy (Clear); Color,Urine Dark Yellow (Yellow); Glucose,Urine (UA) Normal (Normal); Ketones,Urine Trace mg/dL (Negative); Leukocyte Esterase,Urine Negative (Negative); Nitrite,Urine Negative (Negative); Protein,Urine 30 mg/dL (Neg-Trace); Specific Gravity,Urine > 1.030 (1.010-1.025); Urobilinogen,Urine Normal (Normal)
[2018-03-04 13:14] LABS: Basophils % 0.1 %; Eosinophils % 0.2 %; Hematocrit 37.7 % (35.3-44.9); Hemoglobin 12.7 g/dL (11.5-15.4); Immature Granulocytes % 0.5 % (0-4); Lymphocytes # 1.1 K/mcL (0.6-4.6); Mean Corpuscular HGB Conc 33.7 g/dL (31.6-35.5); Mean Corpuscular Hemoglobin 29.7 pg (28.0-33.3); Mean Corpuscular Volume 88.3 fL (83.0-100.0); Mean Platelet Volume 9.5 fL (9.4-12.4); Monocytes # 0.7 K/mcL (0.0-1.3); Monocytes % 8.3 %; Neutrophils # 6.5 K/mcL (1.6-8.9); Platelet Count 208 K/mcL (140-400); Red Blood Count 4.27 M/mcL (3.82-4.97); Red Cell Distribution Width 13.2 % (11.5-14.5); Segmented Neutrophils % 77.9 %
[2018-03-04 13:19] LABS: Bacteria,Urine None Seen per hpf (None-Few); Squamous Epithelial Cell,Urine Many per lpf (None-Few)
[2018-03-04] MEDS ORDERED: Isovue-370 500 ML INFUS..BTL IV ONE (13:29)
[2018-03-04 13:36] LABS: Hyaline Casts,Urine None Seen per lpf (None-Few)
[2018-03-04 13:38] LABS: BUN/Creatinine Ratio 14 (6-26); Blood Urea Nitrogen 13 mg/dL (6-20); Calcium 9.4 mg/dL (8.6-10.3); Carbon Dioxide 24 mEq/L (23-29); Chloride 102 mEq/L (98-107); Glucose 108 mg/dL (70-105); Osmolality,Calculated 279 (280-300); Potassium 3.7 mEq/L (3.5-5.1); Sodium 134 mEq/L (136-145); eGFR For African Americans > 60 (> 60); eGFR For Non-African Americans > 60 (> 60)
--- NOTE | 2018-03-04 13:56 | Emergency Department Note ---
Disposition Clinical Impression: Pulmonary embolism Qualifiers: Pulmonary embolism type: other Chronicity: unspecified Acute cor pulmonale presence: without acute cor pulmonale Qualified Code(s): I26.99 - Other pulmonary embolism without acute cor pulmonale Disposition: Admitted As Inpatient Condition: Fair Referrals: NONE,PCP [Primary Care Provider] - Forms: ED Satisfaction Letter Time of Disposition: 16:38 General Adult HPI - General Chief complaint: ED Back Pain/Injury Stated complaint: back pain Time Seen by Provider: 03/04/18 11:40 Source: patient Limitations: no limitations - History of Present Illness Pain Scale: 8 - Related Data Previous Rx's Medication Instructions Recorded Buspirone HCl [Buspar] 10 mg PO TID 30 Days #90 tablet 01/26/18 Divalproex (12 HR) [Depakote (12 500 mg PO BID 30 Days #60 tablet.dr 01/26/18 HR)] Paroxetine HCl [Paxil] 20 mg PO QAM 30 Days #30 tablet 01/26/18 Prazosin [Minipress] 3 mg PO HS 90 Days #30 capsule 01/26/18 Quetiapine Fumarate [Seroquel] 50 mg PO QAM 30 Days #30 tablet 01/26/18 Quetiapine Fumarate [Seroquel] 300 mg PO HS 30 Days #30 tablet 01/26/18 hydrOXYzine pamoate [HydrOXYzine 50 mg PO TID PRN 30 Days #90 01/26/18 Pamoate] capsule traZODone [TraZODone] 100 mg PO HS 30 Days #30 tablet 01/26/18 Allergies Allergy/AdvReac Type Severity Reaction Status Date / Time Penicillins Allergy Swelling Verified 01/21/18 10:41 of Lip/Tongue/Throat Constitutional: Denies: fever, chills, weakness, weight change Eyes: Denies: eye pain, eye discharge, vision change ENT ED: Denies: ear pain, throat pain, dental pain, hearing loss, epistaxis, congestion, dysphagia Cardiovascular: Denies: chest pain, palpitations, dyspnea on exertion, edema, syncope Respiratory: Denies: cough, dyspnea, wheezes, hemoptysis, stridor Gastrointestinal: Denies: abdominal pain, nausea, vomiting, diarrhea, constipation, hematemesis, melena, hematochezia Genitourinary: Denies: dysuria, frequency, hematuria, discharge Musculoskeletal: Reports: as per HPI, back pain. Denies: neck pain, arthralgia , myalgia Integumentary: Denies: rash, abrasion, lesions Neurological: Denies: headache, weakness, numbness, paresthesias, confusion, abnormal gait, vertigo Psychiatric: Denies: anxiety, depression, suicidal thoughts, homicidal thoughts , auditory hallucinations, visual hallucinations Endocrine: Denies: fatigue Hematological/Lymphatic: Denies: easy bleeding, easy bruising Allergic/Immunologic: Denies: facial swelling, urticaria Past Medical History - Past Medical History Medical history: Reports: seizures, other Surgical history: Reports: , cholecystectomy Psychiatric history: Reports: depression, PTSD, previous psychiatric hospitalization [facility] history: Reports: bilateral tubal ligation - Social History Smoking Status: Never smoker Smokeless Tobacco Status: No Alcohol use: Reports: none, occasionally Drug use: Reports: methamphetamine Physical Exam - General Limitations: no limitations General appearance: alert, anxious Course Vital Signs Temperature 98.6 F 03/04/18 11:33 Pulse Rate 111 03/04/18 11:33 Respiratory Rate 20 03/04/18 11:33 Blood Pressure 146/97 03/04/18 11:33 O2 Sat by Pulse Oximetry 97 03/04/18 11:33 Temperature 98.6 F 03/04/18 11:33 Pulse Rate 111 03/04/18 11:33 Respiratory Rate 20 03/04/18 11:33 Blood Pressure 146/97 03/04/18 11:33 O2 Sat by Pulse Oximetry 97 03/04/18 11:33 Oxygen Delivery Oxygen Delivery Room Air Medical Decision Making - Lab Data Result diagrams: 03/04/18 12:58 03/04/18 12:58 Lab Results 03/04/18 03/04/18 03/04/18 Range/Units 12:55 12:58 12:58 WBC 8.4 (4.3-11.1) K/mcL RBC 4.27 (3.82-4.97) M/mcL Hgb 12.7 (11.5-15.4) g/dL Hct 37.7 (35.3-44.9) % MCV 88.3 (83.0-100.0) fL MCH 29.7 (28.0-33.3) pg MCHC 33.7 (31.6-35.5) g/dL RDW 13.2 (11.5-14.5) % Plt Count 208 (140-400) K/mcL MPV 9.5 (9.4-12.4) fL Immature Gran % 0.5 (0-4) % Seg Neutrophils % 77.9 % Lymphocytes % 13.0 % Monocytes % 8.3 % Eosinophils % 0.2 % Basophils % 0.1 % Neutrophils # 6.5 (1.6-8.9) K/mcL Lymphocytes # 1.1 (0.6-4.6) K/mcL Monocytes # 0.7 (0.0-1.3) K/mcL Eosinophils # 0.0 (0.0-0.6) K/mcL Basophils # 0.0 (0.0-0.2) K/mcL D-Dimer 2070 H (0-500) ng/mLFEU Sodium (136-145) mEq/L Potassium (3.5-5.1) mEq/L Chloride (98-107) mEq/L Carbon Dioxide (23-29) mEq/L BUN (6-20) mg/dL Creatinine (0.60-1.20) mg/dL Est GFR ( Amer) (> 60) Est GFR (Non-Af Amer) (> 60) BUN/Creatinine Ratio (6-26) Glucose (70-105) mg/dL Calculated Osmolality (280-300) Calcium (8.6-10.3) mg/dL Urine Color Dark Yellow (Yellow) Urine Clarity Cloudy A (Clear) Urine pH 6.0 (5.0-8.0) pH Units Ur Specific [place] > 1.030 H (1.010-1.025) Urine Protein 30 H (Neg-Trace) mg/dL Urine Glucose (UA) Normal (Normal) mg/dL Urine Ketones Trace H (Negative) mg/dL Urine Blood Negative (Negative) Urine Nitrite Negative (Negative) Urine Bilirubin Small H (Negative) Urine Urobilinogen Normal (Normal) mg/dL Ur Leukocyte Esterase Negative (Negative) Urine Microscopic RBC 5-15 H (0-3) per hpf Urine Microscopic WBC 3-5 H (0-3) per hpf Ur Squamous Epith Cells Many H (None-Few) per lpf Urine Bacteria None Seen (None-Few) per hpf Hyaline Casts None Seen (None-Few) per lpf Ur Culture Indicated? NO (NO) Valproic Acid (50-100) mcg/mL 03/04/18 Range/Units 12:58 WBC (4.3-11.1) K/mcL RBC (3.82-4.97) M/mcL Hgb (11.5-15.4) g/dL Hct (35.3-44.9) % MCV (83.0-100.0) fL MCH (28.0-33.3) pg MCHC (31.6-35.5) g/dL RDW (11.5-14.5) % Plt Count (140-400) K/mcL MPV (9.4-12.4) fL Immature Gran % (0-4) % Seg Neutrophils % % Lymphocytes % % Monocytes % % Eosinophils % % Basophils % % Neutrophils # (1.6-8.9) K/mcL Lymphocytes # (0.6-4.6) K/mcL Monocytes # (0.0-1.3) K/mcL Eosinophils # (0.0-0.6) K/mcL Basophils # (0.0-0.2) K/mcL D-Dimer (0-500) ng/mLFEU Sodium 134 L (136-145) mEq/L Potassium 3.7 (3.5-5.1) mEq/L Chloride 102 (98-107) mEq/L Carbon Dioxide 24 (23-29) mEq/L BUN 13 (6-20) mg/dL Creatinine 0.93 (0.60-1.20) mg/dL Est GFR ( Amer) > 60 (> 60) Est GFR (Non-Af Amer) > 60 (> 60) BUN/Creatinine Ratio 14 (6-26) Glucose 108 H (70-105) mg/dL Calculated Osmolality 279 L (280-300) Calcium 9.4 (8.6-10.3) mg/dL Urine Color (Yellow) Urine Clarity (Clear) Urine pH (5.0-8.0) pH Units Ur Specific [place] (1.010-1.025) Urine Protein (Neg-Trace) mg/dL Urine Glucose (UA) (Normal) mg/dL Urine Ketones (Negative) mg/dL Urine Blood (Negative) Urine Nitrite (Negative) Urine Bilirubin (Negative) Urine Urobilinogen (Normal) mg/dL Ur Leukocyte Esterase (Negative) Urine Microscopic RBC (0-3) per hpf Urine Microscopic WBC (0-3) per hpf Ur Squamous Epith Cells (None-Few) per lpf Urine Bacteria (None-Few) per hpf Hyaline Casts (None-Few) per lpf Ur Culture Indicated? (NO) Valproic Acid < 4 L (50-100) mcg/mL Attestation Statement - Attestation Attestation: I, Nick Carr DO have provided [id number] time during the care of this patient. Detailed review the presentation, symptoms, medical history were discussed and reviewed with the mid-level provider Chai Choudhary PA-C/KALI. Medical intervention labs and imaging studies were reviewed in detail. See full documentation of physical exam and course of care in the mid-level provider's note. I agree with the determined course of care, medical intervention and disposition put forth by the mid-level provider. See below documentation for changes or alterations in documentation. 37-year-old female presents emergency room with a syncopal event yesterday status post a seizure. Patient has known seizure disorder. She woke up this morning and pain in her left hip and and felt short of breath. She is not orthopneic. Heart rate was elevated initially. Patient's pulse ox was normal. Lungs are clear heart is regular but tachycardic. Abdomen is soft nontender nondistended. Patient's lobe atelectasis and tenderness in the paraspinal musculature. Based on the left leg. She has no bowel or bladder incontinence patient exam with her here to the emergency room. This presentation is most consistent with sciatica. X-rays of the lumbar spine are negative. Patient does still have discomfort over the right lateral aspect of the chest and still feels orthopneic lying here. She is sitting upright in the bed. Patient's d- dimer was elevated to greater than 2000. She is not on a control medications and has no history of clotting disorder. Patient does have lupus. Theoretically she does have some increased risk of being hypercoagulable. Patient will have detailed workup completed at this time including CT angiography the chest. The remainder of her workup initially is been unremarkable. Patient's Depakote level will be collected as well as an EKG. Expect patient will be discharged home once full workup and treatment course are completed. He has breakthrough seizures every several months that are not associated with medication changes or illness 1600 Patient found to have bilateral pulmonary emboli segmental and subsegmental. Possible pulmonary infarct as well as infection. Patient is stable. Admission process to be completed. Single dose of Lovenox given here in the emergency room. Reasoning for admission is the patient is symptomatic with orthopnea as well as other concerning findings. She will be treated symptomatically for aspiration pneumonia. Patient is otherwise stable. Levaquin and Flagyl will be admitted on at this time for anabolic treatment course. Blood cultures will be collected. Patient will be treated for aspiration of this time otherwise clinically stable. Patient will have loading dose of Depakote given here in the emergency room. As a courtesy to the hospitalist the retail cashier was contacted. Recommended adding on troponin and BNP. Otherwise patient is clinically stable for this facility. Oxygenation is been normal. Patient is much more comfortable in the bed at this time. She is very anxious after he told her the results of the findings. Recent now is resting with a heart rate of about 110. Symptomatically control will be completed and admission process to be established. Patient was accepted by the hospitalist Dr. Oliva
[2018-03-04 14:23] LABS: Valproate < 4 mcg/mL (50-100)
[2018-03-04] MEDS ORDERED: *HR* HYDROcodone/Acet 5/325 mg TABLET PO ONE (14:27)
[2018-03-04] MEDS ORDERED: Levofloxacin 750 MG/150 ML 750 MG/150 ML BAG IVPB ONE (16:10)
[2018-03-04] MEDS: MetroNIDAZOLE 500 MG/100 ML 500 MG/100 ML BAG IVPB ONE ×2 (16:41→17:49)
[2018-03-04] MEDS ORDERED: SODIUM CHLORIDE 0.9% IVPB ONE (16:46)
[2018-03-04] MEDS ORDERED: VALPROIC ACID IVPB ONE (16:46)
[2018-03-04] MEDS ORDERED: *HR* FentaNYL (PF) 100 MCG/2 ML VIAL IVP ONE (16:50)
[2018-03-04] MEDS ORDERED: *HR* Enoxaparin 100 MG/ML SYRINGE SQ STA (17:16)
[2018-03-04] MEDS ORDERED: hydrOXYzine pamoate 25 MG CAPSULE PO PRN (17:19)
[2018-03-04] MEDS ORDERED: Naloxone 0.4 MG/ML INJ IVP PRN (17:21)
[2018-03-04] MEDS ORDERED: Valproic Acid INJ 1,000 MG in 0.9 % Sodium Chloride 100 ML IVPB ONE (17:33)
--- NOTE | 2018-03-04 18:00 | Internal Med History&Physical ---
Date of Encounter: 03/04/18 Time of Encounter: 17:53 Internal Medicine - H&P: HPI Chief complaint: back pain Admitted From: Home History of present illness: Ms. Le is a 37 year old female who has history of depression anxiety seizure presenting emergency room for mid back pain. Patient stated that she woke up at 5:30 AM started having bilateral middle back pain, 8 out of 10, sharp constant no radiations any deep breaths or cough make her pain worse. She also had b/l toe numbness and calf pain, left ankle swelling 2 days. Patient has history of seizures, she has been taking Depakote to 500 mg twice a day, her last seizure was 2 months ago, she had another seizure last night, when she was walking she fell, and seized when her daughter witnessed. She denies any injury or loss of urine or bowel control. In the emergency room they did a L spine x-ray which is negative, lab shows elevated d-dimer which prompted PE study. CT PE studies which shows bilateral PE and the lymphadenopathy. Patient denies immobilization. She does have lupus history but not on any treatment. Patient is going to be admitted for acute PE and the breakthrough seizures, possibele aspiration PNA. Past Med Surg Social Fam HX - Past Medical History Medical history: seizures, other Psychiatric history: depression, PTSD, previous psychiatric hospitalization - Past Surgical History Surgical History: , cholecystectomy - Social History Smoking Status: Never smoker Smokeless Tobacco Status: No Alcohol use: none, occasionally Drug use: methamphetamine Internal Medicine - H&P: Meds Buspirone HCl [Buspar] 10 mg PO TID 30 Days #90 tablet 01/26/18 [Rx] Divalproex (12 HR) [Depakote (12 HR)] 500 mg PO BID 30 Days #60 tablet. [Rx] Paroxetine HCl [Paxil] 20 mg PO QAM 30 Days #30 tablet 01/26/18 [Rx] Prazosin [Minipress] 3 mg PO HS 90 Days #30 capsule 01/26/18 [Rx] Quetiapine Fumarate [Seroquel] 50 mg PO QAM 30 Days #30 tablet 01/26/18 [Rx] Quetiapine Fumarate [Seroquel] 300 mg PO HS 30 Days #30 tablet 01/26/18 [Rx] hydrOXYzine pamoate [HydrOXYzine Pamoate] 50 mg PO TID PRN 30 Days #90 capsule 01/26/18 [Rx] traZODone [TraZODone] 100 mg PO HS 30 Days #30 tablet 01/26/18 [Rx] 3 Allergy/AdvReac Type Severity Reaction Status Date / Time Penicillins Allergy Swelling Verified 01/21/18 10:41 of Lip/Tongue/Throat All Systems PM: A 10-system review of systems was performed and is negative for pertinent findings except as documented above in the HPI. - Constitutional Vitals: Temp Pulse Resp BP Pulse Ox 98.6 F 111 20 146/97 97 03/04/18 11:33 03/04/18 11:33 03/04/18 11:33 03/04/18 11:33 03/04/18 11:33 General appearance: Present: A&O X 3 Exam: CONSTITUTIONAL: Patient appears as an age appropriate female well developed, in no acute distress. EYES Clear sclerae, bilateral pupils are equal, reactive to light and accommodation. Extraocular movements are intact RESPIRATORY: No accessory muscle use, bilateral crackles/rales. CARDIOVASCULAR: Regular heart rate, normal S1 and S2, no murmurs GASTROINTESTINAL: bowel sounds present, soft, no tenderness. No hepatosplenomegaly. No bilateral CVA tenderness MUSCULOSKELETAL: Joints in normal range of motion, no clubbing, no edema, no cyanosis. Bilateral peripheral pulses 2+ LYMPHATIC no lymphadenopathy in neck, groin and axilla bilaterally, no thyromegaly. NEUROLOGIC: CN II to XII are grossly intact, no focal neurological deficit. Deep tendon reflexes 2+ bilaterally. Normal light touch sensation to upper and lower extremity PSYCHIATRIC: Oriented x3, with good insight, mood is euthymic. No hallucinations or delusions. SKIN: Skin warm and dry, no rashes, no open wound. Internal Med - H&P Results - Labs CBC & Chem 7: 03/04/18 12:58 03/04/18 12:58 - Assessment and plan (1) Pulmonary embolism Current Visit: Yes Status: Acute Assessment and plan: Patient has bilateral PE, unprovoked, she does have a history of lupus is not active, we will consult a boilermaker apprentice Continue Lovenox twice a day, echocardiogram, Doppler bilateral lower extremity Qualifiers: Pulmonary embolism type: other Chronicity: unspecified Acute cor pulmonale presence: without acute cor pulmonale Qualified Code(s): I26.99 - Other pulmonary embolism without acute cor pulmonale (2) Pneumonia Current Visit: Yes Status: Acute Assessment and plan: Possible aspiration pneumonia from seizures, will change ATB to Unas[employer] Qualifiers: Pneumonia type: aspiration pneumonia Aspiration pneumonia type: unspecified Laterality: bilateral Lung location: unspecified part of lung Qualified Code(s): J69.0 - Pneumonitis due to inhalation of food and vomit (3) Major depressive disorder without psychotic features Current Visit: Yes Status: Chronic Assessment and plan: Continue home medication (4) Seizure Current Visit: Yes Status: Acute Assessment and plan: I called the neurologist, to load Depakote one gram, we will check a Depakote level tomorrow. neurology consult - Time Spent With Patient Total time spent is greater than 50% in coordination of care (as documented) at patient's floor/unit and/or counseling patient: Greater than 35 minutes
[2018-03-04] MEDS: *HR* HYDROcodone/Acet 5/325 mg TABLET PO PRN (18:25)
[2018-03-04] MEDS: traZODone 50 MG TABLET PO SCH (21:44)
[2018-03-05] MEDS: Divalproex (12 HR) 500 MG TABLET PO SCH ×3 (00:56→21:01)
[2018-03-05] MEDS ORDERED: *HR* Enoxaparin 100 MG/ML SYRINGE SQ SCH (06:00)
[2018-03-05 06:30] LABS: Hematocrit 34.5 % (35.3-44.9); Hemoglobin 11.5 g/dL (11.5-15.4); Mean Corpuscular HGB Conc 33.3 g/dL (31.6-35.5); Mean Corpuscular Volume 86.9 fL (83.0-100.0); Mean Platelet Volume 9.7 fL (9.4-12.4); Platelet Count 191 K/mcL (140-400); Red Blood Count 3.97 M/mcL (3.82-4.97)
[2018-03-05 06:47] LABS: BUN/Creatinine Ratio 23 (6-26); Blood Urea Nitrogen 15 mg/dL (6-20); Calcium 8.9 mg/dL (8.6-10.3); Carbon Dioxide 22 mEq/L (23-29); Chloride 103 mEq/L (98-107); Glucose 162 mg/dL (70-105); Osmolality,Calculated 282 (280-300); Sodium 134 mEq/L (136-145); eGFR For African Americans > 60 (> 60); eGFR For Non-African Americans > 60 (> 60)
[2018-03-05] MEDS: *HR* HYDROcodone/Acet 5/325 mg TABLET PO PRN ×3 (08:29→21:01)
--- NOTE | 2018-03-05 12:01 | Neurology - Consult Note ---
Date of Encounter: 03/05/18 Time of Encounter: 11:58 Assessment and Plan (1) Seizure Current Visit: Yes Status: Acute This patient who apparently had a history of seizures already been evaluated by a neurologist in [place] and had a workup including imaging studies of the head as well as results are not available at this time but according to the patient was told that both were within normal limits. Patient did have clinical seizures earlier though she is not able to give much description about it but certainly patient with a history of seizure disorder with any acute illness is possible to have a breakthrough seizure especially when she was not taking her medication on a regular basis. Her Depakote level was almost undetectable. She has been loaded with the Depakote yesterday level was not drawn this morning will repeat her level today and keep her Depakote therapeutic in the meantime continue her on 500 mg twice a day dosage would be adjusted according to the level of medication. Clinically she is a stable at this time as she already had a workup do not think that any indication to repeat at this time. No sign of any TRACK COACH infection on current neurological examination She should remain on seizure precautions continue on Depakote other treatment is as per primary team (2) Personal history of other mental and behavioral disorders Current Visit: Yes Status: Acute History of Present Illness HPI: Ms. Le is a 37 year old female with history of depression anxiety seizure admitted from the emergency room where she presented with mid back pain. Patient stated that she woke up at 5:30 AM started having bilateral middle back pain, 8 out of 10, sharp constant no radiations any deep breaths or cough make her pain worse. She also had b/l toe numbness and calf pain, left ankle swelling 2 days. During the workup she was found to have a bilateral PE d-dimer was also elevated. Patient has history of seizures, started about a year ago for which she has seen neurologist at [facility] was started her on Depakote, but according to the patient she has not been taking the medication for the past several days , according to the patient she may had a seizure last night when she felt weak but not able to give much detailed description about the seizure she denies any tongue bite or urinary incontinence , before this her last seizure was 2 months ago, CT PE studies which shows bilateral PE and the lymphadenopathy. She does have lupus history but not on any treatment. Past Med Surg Social Fam HX - Past Medical History Medical history: seizures, other Psychiatric history: depression, PTSD, previous psychiatric hospitalization - Past Surgical History Surgical History: , cholecystectomy - Social History Smoking Status: Never smoker Smokeless Tobacco Status: No Alcohol use: none, occasionally Drug use: methamphetamine Medications and Allergies Buspirone HCl [Buspar] 10 mg PO TID 30 Days #90 tablet 01/26/18 [Rx] Divalproex (12 HR) [Depakote (12 HR)] 500 mg PO BID 30 Days #60 tablet. [Rx] Paroxetine HCl [Paxil] 20 mg PO QAM 30 Days #30 tablet 01/26/18 [Rx] Prazosin [Minipress] 3 mg PO HS 90 Days #30 capsule 01/26/18 [Rx] Quetiapine Fumarate [Seroquel] 50 mg PO QAM 30 Days #30 tablet 01/26/18 [Rx] Quetiapine Fumarate [Seroquel] 300 mg PO HS 30 Days #30 tablet 01/26/18 [Rx] hydrOXYzine pamoate [HydrOXYzine Pamoate] 50 mg PO TID PRN 30 Days #90 capsule 01/26/18 [Rx] traZODone [TraZODone] 100 mg PO HS 30 Days #30 tablet 01/26/18 [Rx] 3 Allergy/AdvReac Type Severity Reaction Status Date / Time Penicillins Allergy Swelling Verified 01/21/18 10:41 of Lip/Tongue/Throat All Systems: The remainder of the systems were reviewed and are negative Physical Examination - Vital Signs Vital Signs: Initial Vital Signs Temp Pulse Resp BP Pulse Ox 98.6 F 111 20 146/97 97 03/04/18 11:33 03/04/18 11:33 03/04/18 11:33 03/04/18 11:33 03/04/18 11:33 - Exam Exam: GENERAL: Comfortable in no acute distress HEENT: Normal LUNGS: CTA HEART: RRR, S1 S2 Audible, no murmur EXTREMITIES: No Pedal edema. DETAILED NEUROLOGICAL EXAMINATION: MENTAL STATUS: Oriented to person, place, date and situation. Memory: knows the President, Aware of recent events Recent Memory Intact Cranial Nerve Examination: CN - II: Visual Acuity, Field of Vision Normal, Fundus examination: No disk edema, Pupils- size shape reaction to light and accommodation: All normal. CN III, IV, : External ocular movements were intact, Pupils were reactive, Nodrooping of the eyelids CN V: Sensation over the face to light touch and pinprick all normal. Corneal reflexes not tested, jaw jerk normal. CN VII: No facial asymmetry, no flattening of nasolabial folds, no difficulty in closing the eyes, no loss of forehead wrinkles, no difficulty in eye-closure, frowning raising eyebrows. CNVIII: No significant hearing loss CN IX, X: Uvula centralized not deviated, Gag reflex: Not tested CN X1: Sternocleidomastoid, trapezius, normal or evidence of any weakness. CN X11: No Dysarthria, no wasting or fibrilation f tongue muscles, no deviation, tongue muscle strength normal. Motor examination: No hypertrophy, tone was normal, power grade 0-5 Upper limbs Proximal- No difficulty in lifting the arms above the head. Distal- No weakness in distal muscles On formal testing 5/5 all over Lower limbs On formal testing 5/5 all over Coordination: [id number] normal. Target pursuit normal finger tapping normal, Rapid alternating moment of wrist normal Sensory system: Superficial sensations- Touch normal. Pain- Pinprick, Temperature all normal, Deep sensation normal, Joint position sense normal. Cortical sensation, Tactile discrimination, localization and extinction all normal. Deep tendon reflexes. Symmetrical bilateral, No evidence of Babinski. No sign of meningeal irritation Gait Examination: Deferred - Constitutional General appearance: comfortable Results - Laboratory Findings CBC and BMP: 03/05/18 06:16 03/05/18 06:16 Abnormal lab findings: Abnormal lab results Hct 34.5 % (35.3-44.9) L 03/05/18 06:16 D-Dimer 2070 ng/mLFEU (0-500) H 03/04/18 12:58 Sodium 134 mEq/L (136-145) L 03/05/18 06:16 Carbon Dioxide 22 mEq/L (23-29) L 03/05/18 06:16 Glucose 162 mg/dL (70-105) H 03/05/18 06:16 Urine Clarity Cloudy (Clear) A 03/04/18 12:55 Ur Specific [place] > 1.030 (1.010-1.025) H 03/04/18 12:55 Urine Protein 30 mg/dL (Neg-Trace) H 03/04/18 12:55 Urine Ketones Trace mg/dL (Negative) H 03/04/18 12:55 Urine Bilirubin Small (Negative) H 03/04/18 12:55 Urine Microscopic RBC 5-15 per hpf (0-3) H 03/04/18 12:55 Urine Microscopic WBC 3-5 per hpf (0-3) H 03/04/18 12:55 Ur Squamous Epith Cells Many per lpf (None-Few) H 03/04/18 12:55 Valproic Acid < 4 mcg/mL (50-100) L 03/04/18 12:58 Consult Discharge Plan - Plan Referrals: NONE,PCP [Primary Care Provider] -
[2018-03-05] MEDS ORDERED: *HR* Heparin 5,000 UNIT/ML VIAL IVP PRN (12:44)
--- NOTE | 2018-03-05 12:51 | Internal Med Progress Note ---
Date of Encounter: 03/05/18 Time of Encounter: 12:49 - Assessment and plan (1) Pulmonary embolism Current Visit: Yes Status: Acute Assessment and plan: Acute pulmonary emboli bilaterally Stop Lovenox due to hemoptysis Started heparin drip Check a PTT first as patients that have a lupus may have abnormal no reliable levels of a PTT The patient mentions that a few days ago she had an 8 hour trip and he complained of swelling on the left lower extremity Qualifiers: Pulmonary embolism type: other Chronicity: unspecified Acute cor pulmonale presence: without acute cor pulmonale Qualified Code(s): I26.99 - Other pulmonary embolism without acute cor pulmonale (2) Pneumonia Current Visit: Yes Status: Acute Assessment and plan: Possible aspiration pneumonia present upon admission as a result of seizure disorder Continue clindamycin day #2 She received dose of Levaquin and Flagyl in the emergency room due to severe penicillin allergy Qualifiers: Pneumonia type: aspiration pneumonia Aspiration pneumonia type: unspecified Laterality: bilateral Lung location: unspecified part of lung Qualified Code(s): J69.0 - Pneumonitis due to inhalation of food and vomit (3) Hemoptysis Current Visit: Yes Status: Acute Assessment and plan: Minimal at this point Continue heparin drip for now Pulmonary consult (4) Seizure Current Visit: Yes Status: Acute Assessment and plan: Seizure disorder Noncompliant with the Depakote Neurology was consulted and recommended to resume Depakote dose and measure levels on a daily basis (5) Anxiety Current Visit: No Status: Acute (6) Methamphetamine abuse Current Visit: No Status: Acute - Time Spent With Patient Total time spent is greater than 50% in coordination of care (as documented) at patient's floor/unit and/or counseling patient: - Subjective Interval history: Has been complaining of back pain, small amounts of hemoptysis, shortness of breath, minimal chest pain, denies any fevers, no nausea or vomiting, no abdominal pain or dysuria - Constitutional Vitals: Temp Pulse Resp BP Pulse Ox 97.5 F L 63 14 110/42 99 03/05/18 11:46 03/05/18 11:46 03/05/18 11:46 03/05/18 11:46 03/05/18 11:46 General appearance: Present: A&O X 3 - Head Head exam: Present: atraumatic, normocephalic - Eye Eye exam: Present: PERRL, conjuntiva pink, sclera anicteric Pupils: Present: PERRL - Neck Neck exam general surgery: Present: supple, trachea midline. Absent: lymphadenopathy - Respiratory Respiratory exam: Present: CTAB. Absent: accessory muscle use, rales, rhonchi, wheezes - Cardiovascular Cardiovascular exam: Present: RRR, +S1, +S2. Absent: diastolic murmur, gallop, rubs, systolic murmur - GI/Abdominal GI/Abdominal exam: Present: normal bowel sounds, soft, no peritoneal signs. Absent: distended, tenderness - Extremities Exam Extremities exam: Present: warm, radial pulses palpable and symmetrical. Absent : calf tenderness, cyanotic, pedal edema - Neurological Exam Neurological exam: Present: CN II-XII intact, oriented X3, no focal deficits. Absent: pronater drift, facial droop, speech deficit - Skin Skin exam: Present: dry, intact Internal Medicine: Result - Labs CBC & Chem 7: 03/05/18 06:16 03/05/18 06:16 Labs: Short CBC 03/05/18 Range/Units 06:16 WBC 8.6 (4.3-11.1) K/mcL Hgb 11.5 (11.5-15.4) g/dL Hct 34.5 L (35.3-44.9) % Plt Count 191 (140-400) K/mcL [facility] 03/05/18 06:16 Sodium 134 L Potassium 4.0 Chloride 103 Carbon Dioxide 22 L BUN 15 Creatinine 0.64 Glucose 162 H Calcium 8.9 - ABG Interpretation ABG results: PT/INR, D-dimer D-Dimer 2070 ng/mLFEU (0-500) H 03/04/18 12:58 Consult Discharge Plan - Plan Referrals: NONE,PCP [Primary Care Provider] -
[2018-03-05] MEDS: Heparin 25,000 UNIT/500 ML D5W 25,000 UNIT/500 ML BAG IVC SCH (13:40)
[2018-03-05 13:59] LABS: Hematocrit 34.3 % (35.3-44.9); Hemoglobin 11.6 g/dL (11.5-15.4); Mean Corpuscular HGB Conc 33.8 g/dL (31.6-35.5); Mean Corpuscular Hemoglobin 29.6 pg (28.0-33.3); Mean Corpuscular Volume 87.5 fL (83.0-100.0); Mean Platelet Volume 10.1 fL (9.4-12.4); Platelet Count 181 K/mcL (140-400); Red Blood Count 3.92 M/mcL (3.82-4.97)
[2018-03-05 14:05] LABS: INR 1.1; Prothrombin Time 11.9 Seconds (9.4-12.1)
[2018-03-05 14:08] LABS: Activated Partial Thrombo Time 30.4 Seconds (26.0-36.0)
[2018-03-05] MEDS: Clindamycin 900 MG/50 ML 900 MG/50 ML IV.SOLN IVPB SCH (17:04)
[2018-03-05] MEDS: *HR* Heparin 5,000 UNIT/ML VIAL IVP PRN (20:59)
[2018-03-05] MEDS: traZODone 50 MG TABLET PO SCH (21:01)
--- NOTE | 2018-03-05 21:18 | Oncology Inp Consult Note ---
Date of Encounter: 03/06/18 Time of Encounter: 18:00 Assessment and Plan (1) Pulmonary embolism Status: Acute Assessment and plan: Patient hospitalized for acute pulmonary embolism, on IV heparin without prior history of thrombosis, in the sitting off found infection? Pneumonia, on anti- coagulation with heparin. Oral direct anticoagulants is preferable due to warfarin interacting with valproic acid, outpatient discharge on Xarelto 20 mg daily. We will also proceed with the some of the hypercoagulable workup while she is on anticoagulation, due to her young age. History of seizures, on Depakote follows up with her neurologist. Compliance with medications reinforced. She will follow-up with hematology as an outpatient after discharge for monitoring anticoagulation. Plan discussed with patient who stated understanding. Qualifiers: Pulmonary embolism type: other Chronicity: unspecified Acute cor pulmonale presence: without acute cor pulmonale Qualified Code(s): I26.99 - Other pulmonary embolism without acute cor pulmonale - Data of Consult Requesting Physician: Tana Oliva Primary Care Provider: PCP NONE - Consult Narrative Reason for consult: thrombosis History of present illness: Ms. Le is a 37 year old female with medical hx significant for depression , anxiety, lupus, seizures treated with depakote per neurology notes follows with [facility] but not taken meds for few days, hospitalized for back pain acute onset and cough. Work up included back X rays, CXR and d dimers that was elevated. A CTA showed acute pulmonary emboli in the lower lobes segmental and subsegmental branches bilaterally, patchy airspace disease, infarct and lymphadenoapthy ~2cm seamus axilla, boderline hilar mediastinal adenopathy. Lower ext doppler studies were negative. Started heparin, baseline PTT nl. Also on antibiotics for pneumonia. She still has a cough, occasional blood staining in phlegm. Her back pain is improved today. Denies shortness of breath. Review of systems otherwise negative. Past Med Surg Social Fam HX - Past Medical History Medical history: seizures, other Psychiatric history: depression, PTSD, previous psychiatric hospitalization - Past Surgical History Surgical History: , cholecystectomy - Social History Smoking Status: Never smoker Smokeless Tobacco Status: No Alcohol use: none, occasionally Drug use: methamphetamine Medications and Allergies Buspirone HCl [Buspar] 10 mg PO TID 30 Days #90 tablet 01/26/18 [Rx] Divalproex (12 HR) [Depakote (12 HR)] 500 mg PO BID 30 Days #60 tablet. [Rx] Paroxetine HCl [Paxil] 20 mg PO QAM 30 Days #30 tablet 01/26/18 [Rx] Prazosin [Minipress] 3 mg PO HS 90 Days #30 capsule 01/26/18 [Rx] Quetiapine Fumarate [Seroquel] 50 mg PO QAM 30 Days #30 tablet 01/26/18 [Rx] Quetiapine Fumarate [Seroquel] 300 mg PO HS 30 Days #30 tablet 01/26/18 [Rx] hydrOXYzine pamoate [HydrOXYzine Pamoate] 50 mg PO TID PRN 30 Days #90 capsule 01/26/18 [Rx] traZODone [TraZODone] 100 mg PO HS 30 Days #30 tablet 01/26/18 [Rx] 3 Allergy/AdvReac Type Severity Reaction Status Date / Time Penicillins Allergy Swelling Verified 01/21/18 10:41 of Lip/Tongue/Throat Review of systems: as in HPI otherwise neg Oncology - Exam - Constitutional Vitals: Temp Pulse Resp BP Pulse Ox 97.9 F 93 16 100/59 93 03/05/18 19:59 03/05/18 19:59 03/05/18 19:59 03/05/18 19:59 03/05/18 19:59 General appearance: no acute distress - Head Head exam: Present: atraumatic, normal inspection - Eye Eye exam: Present: sclera anicteric - ENT ENT exam: Present: mucous membranes moist - Neck Neck exam: Present: normal inspection - Respiratory Respiratory exam: Present: CTAB - Cardiovascular Cardiovascular exam: Present: +S1, +S2 - GI/Abdominal GI/Abdominal exam: Present: normal bowel sounds, soft - Extremities Exam Extremities exam: Present: normal inspection - Neurological Exam Neurological exam: Present: alert, CN II-XII intact, oriented X3, no focal deficits - Psychiatric Psychiatric exam: Present: normal mood - Skin Skin exam: Present: normal color Oncology - Results Labs: 03/05/18 03/05/18 03/05/18 19:43 13:12 13:12 WBC 12.7 H RBC 3.92 Hgb 11.6 Hct 34.3 L MCV 87.5 MCH 29.6 MCHC 33.8 RDW 13.0 Plt Count 181 MPV 10.1 PT 11.9 INR 1.1 APTT 46.5 H D 30.4 Sodium Potassium Chloride Carbon Dioxide BUN Creatinine Est GFR ( Amer) Est GFR (Non-Af Amer) BUN/Creatinine Ratio Glucose Calculated Osmolality Calcium 03/05/18 03/05/18 06:16 06:16 WBC 8.6 RBC 3.97 Hgb 11.5 Hct 34.5 L MCV 86.9 MCH 29.0 MCHC 33.3 RDW 13.0 Plt Count 191 MPV 9.7 PT INR APTT Sodium 134 L Potassium 4.0 Chloride 103 Carbon Dioxide 22 L BUN 15 Creatinine 0.64 Est GFR ( Amer) > 60 Est GFR (Non-Af Amer) > 60 BUN/Creatinine Ratio 23 Glucose 162 H Calculated Osmolality 282 Calcium 8.9 CTA, doppler Consult Discharge Plan - Plan Referrals: NONE,PCP [Primary Care Provider] -
[2018-03-06] MEDS: Clindamycin 900 MG/50 ML 900 MG/50 ML IV.SOLN IVPB SCH ×2 (02:54→08:23)
[2018-03-06] MEDS: *HR* HYDROcodone/Acet 5/325 mg TABLET PO PRN ×2 (08:22→20:06)
[2018-03-06] MEDS: Divalproex (12 HR) 500 MG TABLET PO SCH ×2 (08:22→20:06)
--- NOTE | 2018-03-06 11:23 | Internal Med Progress Note ---
Date of Encounter: 03/06/18 Time of Encounter: 11:23 - Assessment and plan (1) Pulmonary embolism Current Visit: Yes Status: Acute Assessment and plan: Acute pulmonary emboli bilaterally, with right lower extremity DVT Stopped Lovenox due to hemoptysis Continue heparin drip Hematology/Oncology recommended Xarelto upon discharge due to warfarin interaction with depakote The patient mentions that a few days ago she had an [address] angio of the chest showed:Acute pulmonary emboli are seen in the lower lobe segmental and subsegmental branches bilaterally. Subsegmental right basilar airspace disease posteriorly could be related to a developing infarct. Patchy ground-glass changes are seen in the lung bases bilaterally which could be related to mild edematous change, atelectasis or atypical infection. There is a new 6.6 mm pulmonary nodule seen in the right middle lobe, not seen in 2012. There is also a clustered area of tiny centrilobular nodules seen in the right middle lobe which can be seen in the setting of bronchiolitis. Pulmonary nodule follow-up criteria are available for reference below. Increasing size of a left and right axillary lymph node, both of which are enlarged. The left axillary lymph node has increased from 1.9 x 1.7 cm to 2.3 x 2.2 cm since 2012. The right axillary lymph node measures 17.7 x 12.5 mm, previously measuring 13.9 x 11.6 mm. If the patient has not undergone mammography, recommend further mammographic evaluation. Cannot exclude the possibility of metastatic lymphadenopathy or lymphoma. There is a mildly enlarged right peritracheal lymph node, measuring 11 mm in short axis, previously measuring 8 mm in greatest dimension. There is also an enlarged right hilar lymph node, which could be reactive. Qualifiers: Pulmonary embolism type: other Chronicity: unspecified Acute cor pulmonale presence: without acute cor pulmonale Qualified Code(s): I26.99 - Other pulmonary embolism without acute cor pulmonale (2) Pneumonia Current Visit: Yes Status: Acute Assessment and plan: Possible aspiration pneumonia present upon admission as a result of seizure disorder Not improving Discontinue clindamycin day #3 Resume Levaquin and Flagyl Aspiration precautions She received dose of Levaquin and Flagyl in the emergency room due to severe penicillin allergy Qualifiers: Pneumonia type: aspiration pneumonia Aspiration pneumonia type: unspecified Laterality: bilateral Lung location: unspecified part of lung Qualified Code(s): J69.0 - Pneumonitis due to inhalation of food and vomit (3) Hemoptysis Current Visit: Yes Status: Acute Assessment and plan: Minimal at this point Continue heparin drip for now Pulmonary consult (4) Seizure Current Visit: Yes Status: Acute Assessment and plan: Seizure disorder Noncompliant with the Depakote Neurology was consulted and recommended to resume Depakote dose and measure levels (5) Anxiety Current Visit: No Status: Acute (6) Methamphetamine abuse Current Visit: No Status: Acute - Time Spent With Patient Total time spent is greater than 50% in coordination of care (as documented) at patient's floor/unit and/or counseling patient: - Subjective Interval history: Complaining of more shortness of breath, less back pain, but still having small amounts of hemoptysis, minimal chest pain, denies any fevers, no nausea or vomiting, no abdominal pain or dysuria - Constitutional Vitals: Temp Pulse Resp BP Pulse Ox 97.5 F L 85 17 120/62 96 03/06/18 06:57 03/06/18 06:57 03/06/18 06:57 03/06/18 06:57 03/06/18 06:57 General appearance: Present: A&O X 3 - Head Head exam: Present: atraumatic, normocephalic - Eye Eye exam: Present: PERRL, conjuntiva pink, sclera anicteric Pupils: Present: PERRL - Neck Neck exam general surgery: Present: supple, trachea midline. Absent: lymphadenopathy - Respiratory Respiratory exam: Present: CTAB, rales (Bibasilar crackles). Absent: accessory muscle use, rhonchi, wheezes - Cardiovascular Cardiovascular exam: Present: RRR, +S1, +S2. Absent: diastolic murmur, gallop, rubs, systolic murmur - GI/Abdominal GI/Abdominal exam: Present: normal bowel sounds, soft, no peritoneal signs. Absent: distended, tenderness - Extremities Exam Extremities exam: Present: warm, radial pulses palpable and symmetrical. Absent : calf tenderness, cyanotic, pedal edema - Neurological Exam Neurological exam: Present: CN II-XII intact, oriented X3, no focal deficits. Absent: pronater drift, facial droop, speech deficit - Skin Skin exam: Present: dry, intact Internal Medicine: Result - Labs CBC & Chem 7: 03/05/18 13:12 03/05/18 06:16 Labs: Short CBC 03/05/18 Range/Units 13:12 WBC 12.7 H (4.3-11.1) K/mcL Hgb 11.6 (11.5-15.4) g/dL Hct 34.3 L (35.3-44.9) % Plt Count 181 (140-400) K/mcL - ABG Interpretation ABG results: PT/INR, D-dimer PT 11.9 Seconds (9.4-12.1) 03/05/18 13:12 D-Dimer 2070 ng/mLFEU (0-500) H 03/04/18 12:58 - Impressions Impressions Echocardiogram 03/05/18 15:02 Impressions: LVEF 60-65%. Mild left ventricular diastolic dysfunction. Normal right ventricular structure and function. Mild mitral regurgitation. Mild tricuspid regurgitation. No pulmonary hypertension. Left Ventricular Wall Motion: Rest Echo Findings All wall segments showed normal motion. Findings: Study Quality * Technically adequate exam. ECG Findings * Normal sinus rhythm. Left Ventricle * LVEF 60-65%. * Normal LV chamber size, wall thickness and function. * Mild left ventricular diastolic dysfunction. Right Ventricle * Normal right ventricular structure and function. Left Atrium * Normal left atrial size. Right Atrium * Normal right atrial size. Aortic Valve * No aortic regurgitation. * Trileaflet aortic valve. * No aortic stenosis. Mitral Valve * Normal mitral valve structure. * No mitral stenosis. * Mild mitral regurgitation. Tricuspid Valve * Tricuspid valve not well visualized. * Mild tricuspid regurgitation. * Estimated RA pressure is 3 mmHg. * Estimated RVSP is 22 mmHg. * No pulmonary hypertension. Pulmonic Valve * Pulmonic valve is not well visualized. * No pulmonic stenosis. * No pulmonic regurgitation. Pulmonary Artery * Pulmonary artery not well visualized. Aorta * Normally sized aortic root. Pericardium * There is no pericardial effusion present. Interatrial Septum * No evidence of PFO by color Doppler. IVC * The IVC is not dilated. Consult Discharge Plan - Plan Referrals: NONE,PCP [Primary Care Provider] -
[2018-03-06] MEDS: Heparin 25,000 UNIT/500 ML D5W 25,000 UNIT/500 ML BAG IVC SCH (11:47)
[2018-03-06] MEDS: 0.9 % Sodium Chloride 1,000 ML IVC SCH (11:48)
[2018-03-06] MEDS: MetroNIDAZOLE 500 MG/100 ML 500 MG/100 ML BAG IVPB SCH ×3 (11:57→23:49)
[2018-03-06] MEDS: Levofloxacin 750 MG/150 ML 750 MG/150 ML BAG IVPB SCH (12:03)
--- NOTE | 2018-03-06 15:59 | Neurology Progress Note ---
Date of Encounter: 03/06/18 Time of Encounter: 15:57 Assessment and Plan (1) Seizure Current Visit: Yes Status: Acute contuneu on same dose of depakote, check level tomorrow to keep it therapeutic if low may need extra dose of 500 (2) Personal history of other mental and behavioral disorders Current Visit: Yes Status: Acute Subjective Interval history: pt seem to e dong ok no seizures Objective - Constitutional Vitals: Temp Pulse Resp BP Pulse Ox 97.5 F L 85 17 120/62 96 03/06/18 06:57 03/06/18 06:57 03/06/18 06:57 03/06/18 06:57 03/06/18 06:57 - Neurological Exam Motor Examination: Present: grossly full strength in all extremities Sensation intact: Present: intact Reflex and gait examination: intact Reflexes: Biceps: 1+, Triceps: 1+, Brachioradialis: 1+, Patella: 1+, Achilles: 1 + Mental Status Examination: Present: awake, alert, oriented to person, oriented to place, follows commands appropriately Cranial nerve examination: Present: PERRL, EOMI, visual avila intact, sensory to face intact, mastication intact, no facial asymmetry is present Results - Laboratory Findings CBC and BMP: 03/05/18 13:12 03/05/18 06:16 Abnormal lab findings: Abnormal lab results WBC 12.7 K/mcL (4.3-11.1) H 03/05/18 13:12 Hct 34.3 % (35.3-44.9) L 03/05/18 13:12 APTT 64.4 Seconds (26.0-36.0) H 03/06/18 09:01 D-Dimer 2070 ng/mLFEU (0-500) H 03/04/18 12:58 Sodium 134 mEq/L (136-145) L 03/05/18 06:16 Carbon Dioxide 22 mEq/L (23-29) L 03/05/18 06:16 Glucose 162 mg/dL (70-105) H 03/05/18 06:16 Urine Clarity Cloudy (Clear) A 03/04/18 12:55 Ur Specific [place] > 1.030 (1.010-1.025) H 03/04/18 12:55 Urine Protein 30 mg/dL (Neg-Trace) H 03/04/18 12:55 Urine Ketones Trace mg/dL (Negative) H 03/04/18 12:55 Urine Bilirubin Small (Negative) H 03/04/18 12:55 Urine Microscopic RBC 5-15 per hpf (0-3) H 03/04/18 12:55 Urine Microscopic WBC 3-5 per hpf (0-3) H 03/04/18 12:55 Ur Squamous Epith Cells Many per lpf (None-Few) H 03/04/18 12:55 Valproic Acid 41 mcg/mL (50-100) L 03/06/18 03:32 Consult Discharge Plan - Plan Referrals: NONE,PCP [Primary Care Provider] -
[2018-03-06] MEDS: traZODone 50 MG TABLET PO SCH (20:05)
[2018-03-06 23:41] LABS: Valproate Free 9 ug/mL (7-23); Valproate Total 43 ug/mL (50-125)
[2018-03-06] MEDS: Sennosides 8.6 MG TABLET PO SCH (23:49)
[2018-03-06] MEDS ORDERED: Ketorolac 15 MG/ML VIAL IVP ONE (23:53)
[2018-03-07] MEDS: 0.9 % Sodium Chloride 1,000 ML IVC SCH ×2 (04:44→16:28)
[2018-03-07 05:15] LABS: Hematocrit 31.2 % (35.3-44.9); Hemoglobin 10.7 g/dL (11.5-15.4); Mean Corpuscular HGB Conc 34.3 g/dL (31.6-35.5); Mean Corpuscular Hemoglobin 30.6 pg (28.0-33.3); Mean Corpuscular Volume 89.1 fL (83.0-100.0); Mean Platelet Volume 9.9 fL (9.4-12.4); Platelet Count 184 K/mcL (140-400); Red Cell Distribution Width 13.1 % (11.5-14.5)
[2018-03-07 05:36] LABS: BUN/Creatinine Ratio 21 (6-26); Blood Urea Nitrogen 16 mg/dL (6-20); Calcium 8.7 mg/dL (8.6-10.3); Carbon Dioxide 25 mEq/L (23-29); Chloride 107 mEq/L (98-107); Glucose 113 mg/dL (70-105); Osmolality,Calculated 286 (280-300); Potassium 3.6 mEq/L (3.5-5.1); Sodium 137 mEq/L (136-145); eGFR For African Americans > 60 (> 60); eGFR For Non-African Americans > 60 (> 60)
--- NOTE | 2018-03-07 08:38 | Internal Med Progress Note ---
Date of Encounter: 03/07/18 Time of Encounter: 08:36 - Assessment and plan (1) Pulmonary embolism Current Visit: Yes Status: Acute Assessment and plan: Acute pulmonary emboli bilaterally, with right lower extremity DVT Stopped Lovenox due to hemoptysis Continue heparin drip Hematology/Oncology recommended Xarelto upon discharge due to warfarin interaction with depakote Labwork pending The patient mentions that a few days ago she had an [address] angio of the chest showed:Acute pulmonary emboli are seen in the lower lobe segmental and subsegmental branches bilaterally. Subsegmental right basilar airspace disease posteriorly could be related to a developing infarct. Patchy ground-glass changes are seen in the lung bases bilaterally which could be related to mild edematous change, atelectasis or atypical infection. There is a new 6.6 mm pulmonary nodule seen in the right middle lobe, not seen in 2012. There is also a clustered area of tiny centrilobular nodules seen in the right middle lobe which can be seen in the setting of bronchiolitis. Pulmonary nodule follow-up criteria are available for reference below. Increasing size of a left and right axillary lymph node, both of which are enlarged. The left axillary lymph node has increased from 1.9 x 1.7 cm to 2.3 x 2.2 cm since 2012. The right axillary lymph node measures 17.7 x 12.5 mm, previously measuring 13.9 x 11.6 mm. If the patient has not undergone mammography, recommend further mammographic evaluation. Cannot exclude the possibility of metastatic lymphadenopathy or lymphoma. There is a mildly enlarged right peritracheal lymph node, measuring 11 mm in short axis, previously measuring 8 mm in greatest dimension. There is also an enlarged right hilar lymph node, which could be reactive. Qualifiers: Pulmonary embolism type: other Chronicity: unspecified Acute cor pulmonale presence: without acute cor pulmonale Qualified Code(s): I26.99 - Other pulmonary embolism without acute cor pulmonale (2) Pneumonia Current Visit: Yes Status: Acute Assessment and plan: Possible aspiration pneumonia present upon admission as a result of seizure disorder Not improving much Discontinued clindamycin day #3 Continue Levaquin and Flagyl day #2 Aspiration precautions She received dose of Levaquin and Flagyl in the emergency room due to severe penicillin allergy Qualifiers: Pneumonia type: aspiration pneumonia Aspiration pneumonia type: unspecified Laterality: bilateral Lung location: unspecified part of lung Qualified Code(s): J69.0 - Pneumonitis due to inhalation of food and vomit (3) Hemoptysis Current Visit: Yes Status: Acute Assessment and plan: Minimal at this point Continue heparin drip for now Pulmonary consult (4) Seizure Current Visit: Yes Status: Acute Assessment and plan: Seizure disorder Noncompliant with the Depakote Neurology was consulted and recommended to resume Depakote dose and measure levels (5) Anxiety Current Visit: No Status: Acute (6) Methamphetamine abuse Current Visit: No Status: Acute - Time Spent With Patient Total time spent is greater than 50% in coordination of care (as documented) at patient's floor/unit and/or counseling patient: - Subjective Interval history: Less tachycardic. Complaining of less shortness of breath, less back pain, but still having small amounts of hemoptysis which have not progressed, minimal chest pain, denies any fevers, no nausea or vomiting, no abdominal pain or dysuria - Constitutional Vitals: Temp Pulse Resp BP Pulse Ox 97.5 F L 84 15 126/82 94 03/07/18 07:11 03/07/18 07:11 03/07/18 07:11 03/07/18 07:11 03/07/18 07:11 General appearance: Present: A&O X 3 Exam: - Head Head exam: Present: atraumatic, normocephalic - Eye Eye exam: Present: PERRL, conjuntiva pink, sclera anicteric Pupils: Present: PERRL - Neck Neck exam general surgery: Present: supple, trachea midline. Axillary lymphadenopathy - Respiratory Respiratory exam: Present: CTAB, rales (Bibasilar crackles). Absent: accessory muscle use, rhonchi, wheezes - Cardiovascular Cardiovascular exam: Present: RRR, +S1, +S2. Absent: diastolic murmur, gallop, rubs, systolic murmur - GI/Abdominal GI/Abdominal exam: Present: normal bowel sounds, soft, no peritoneal signs. Absent: distended, tenderness - Extremities Exam Extremities exam: Present: warm, radial pulses palpable and symmetrical. Absent : calf tenderness, cyanotic, pedal edema - Neurological Exam Neurological exam: Present: CN II-XII intact, oriented X3, no focal deficits. Absent: pronater drift, facial droop, speech deficit - Skin Skin exam: Present: dry, intact Internal Medicine: Result - Labs CBC & Chem 7: 03/07/18 04:48 03/07/18 04:48 Labs: Short CBC 03/07/18 Range/Units 04:48 WBC 5.8 D (4.3-11.1) K/mcL Hgb 10.7 L (11.5-15.4) g/dL Hct 31.2 L (35.3-44.9) % Plt Count 184 (140-400) K/mcL BMP 03/07/18 04:48 Sodium 137 Potassium 3.6 Chloride 107 Carbon Dioxide 25 BUN 16 Creatinine 0.75 Glucose 113 H Calcium 8.7 - ABG Interpretation ABG results: PT/INR, D-dimer PT 11.9 Seconds (9.4-12.1) 03/05/18 13:12 D-Dimer 2070 ng/mLFEU (0-500) H 03/04/18 12:58 - Impressions Impressions Chest X-Ray 03/06/18 11:22 IMPRESSION: Low lung volumes with a single opacity in the retrocardiac aspect seen only on the lateral view, which may reflect atelectasis. Pneumonia could be a possibility in the appropriate clinical setting. D/ / 03/06/2018 13:05:21 Kailee Yadav MD / tesha Interpreting Provider: Kailee Yadav MD Consult Discharge Plan - Plan Referrals: NONE,PCP [Primary Care Provider] -
[2018-03-07] MEDS: Divalproex (12 HR) 500 MG TABLET PO SCH ×2 (08:44→20:50)
[2018-03-07] MEDS: Levofloxacin 750 MG/150 ML 750 MG/150 ML BAG IVPB SCH (08:44)
[2018-03-07] MEDS: Sennosides 8.6 MG TABLET PO SCH ×2 (08:44→20:49)
[2018-03-07] MEDS: MetroNIDAZOLE 500 MG/100 ML 500 MG/100 ML BAG IVPB SCH ×3 (08:45→23:52)
[2018-03-07 10:12] LABS: Valproate % Free 21 % (5-18)
[2018-03-07] MEDS: *HR* Heparin 5,000 UNIT/ML VIAL IVP PRN (10:38)
[2018-03-07] MEDS: Heparin 25,000 UNIT/500 ML D5W 25,000 UNIT/500 ML BAG IVC SCH (10:51)
[2018-03-07] MEDS: *HR* HYDROcodone/Acet 5/325 mg TABLET PO PRN (12:43)
[2018-03-07] MEDS: Acetaminophen 325 MG TABLET PO PRN (16:29)
[2018-03-07] MEDS ORDERED: Ketorolac 15 MG/ML VIAL IVP ONE (20:49)
[2018-03-07] MEDS: traZODone 50 MG TABLET PO SCH (20:49)
[2018-03-08 05:03] LABS: Hematocrit 31.2 % (35.3-44.9); Hemoglobin 10.7 g/dL (11.5-15.4); Mean Corpuscular HGB Conc 34.3 g/dL (31.6-35.5); Mean Corpuscular Hemoglobin 30.5 pg (28.0-33.3); Mean Corpuscular Volume 88.9 fL (83.0-100.0); Mean Platelet Volume 9.9 fL (9.4-12.4); Platelet Count 188 K/mcL (140-400); Red Blood Count 3.51 M/mcL (3.82-4.97); Red Cell Distribution Width 13.2 % (11.5-14.5)
[2018-03-08] MEDS: Heparin 25,000 UNIT/500 ML D5W 25,000 UNIT/500 ML BAG IVC SCH ×2 (05:16→19:24)
[2018-03-08 05:31] LABS: BUN/Creatinine Ratio 21 (6-26); Blood Urea Nitrogen 15 mg/dL (6-20); Calcium 8.3 mg/dL (8.6-10.3); Carbon Dioxide 24 mEq/L (23-29); Chloride 109 mEq/L (98-107); Glucose 102 mg/dL (70-105); Osmolality,Calculated 287 (280-300); Potassium 3.9 mEq/L (3.5-5.1); Sodium 138 mEq/L (136-145); eGFR For African Americans > 60 (> 60); eGFR For Non-African Americans > 60 (> 60)
[2018-03-08] MEDS: 0.9 % Sodium Chloride 1,000 ML IVC SCH (06:05)
[2018-03-08] MEDS: Divalproex (12 HR) 500 MG TABLET PO SCH (08:12)
[2018-03-08] MEDS: Sennosides 8.6 MG TABLET PO SCH ×2 (08:12→23:12)
[2018-03-08] MEDS: *HR* HYDROcodone/Acet 5/325 mg TABLET PO PRN (08:13)
[2018-03-08] MEDS: MetroNIDAZOLE 500 MG/100 ML 500 MG/100 ML BAG IVPB SCH (08:14)
[2018-03-08] MEDS: Levofloxacin 750 MG/150 ML 750 MG/150 ML BAG IVPB SCH (08:26)
--- NOTE | 2018-03-08 10:30 | Internal Med Progress Note ---
Date of Encounter: 03/08/18 Time of Encounter: 10:30 - Assessment and plan (1) Pulmonary embolism Current Visit: Yes Status: Acute Assessment and plan: Acute pulmonary emboli bilaterally, with right lower extremity DVT Currently on heparin drip. Continues to have some hemoptysis but seems to be improving. Still very symptomatic. Will recheck CT today. Qualifiers: Pulmonary embolism type: other Chronicity: unspecified Acute cor pulmonale presence: without acute cor pulmonale Qualified Code(s): I26.99 - Other pulmonary embolism without acute cor pulmonale (2) Hemoptysis Current Visit: Yes Status: Acute Assessment and plan: Appears to be decreasing. Continue heparin drip. Most likely related to injury from PE. (3) Methamphetamine abuse Current Visit: No Status: Chronic Assessment and plan: Chronic issue. (4) Anxiety Current Visit: No Status: Chronic Assessment and plan: Chronic issue. (5) Seizure Current Visit: Yes Status: Acute Assessment and plan: Seizure disorder Noncompliant with the Depakote Appreciate neuro input and continuing depakote at this time. (6) Pneumonia Current Visit: Yes Status: Acute Assessment and plan: Possible aspiration pneumonia present upon admission as a result of seizure disorder Continue Levaquin and Flagyl day #3 Aspiration precautions Will complete course of abx Qualifiers: Pneumonia type: aspiration pneumonia Aspiration pneumonia type: unspecified Laterality: bilateral Lung location: lower lobe of lung Qualified Code(s): J69.0 - Pneumonitis due to inhalation of food and vomit (7) Axillary adenopathy Current Visit: Yes Status: Acute Assessment and plan: Has adenopathy noted on CT. Will need further workup as outpatient. - Time Spent With Patient Total time spent is greater than 50% in coordination of care (as documented) at patient's floor/unit and/or counseling patient: - Subjective Interval history: Ms Le is currently admitted for acute bilateral PEs. She remains moderate to high risk due to potential for worsening clinical and respiratory status. Ms Le is still having pleuritic pain and dyspnea. She cannot lie flat at this time and is very tired with exertion. No fever or chills. Some cough. No GI issues. Still having some hemoptysis but seems to be less today. - Constitutional Vitals: Temp Pulse Resp BP Pulse Ox 98.4 F 95 18 148/92 96 03/08/18 06:53 03/08/18 06:53 03/08/18 06:53 03/08/18 06:53 03/08/18 06:53 General appearance: Present: A&O X 3, pleasant, answers questions appropriately - Head Head exam: Present: normocephalic - Eye Eye exam: Present: conjuntiva pink - ENT ENT exam: Present: mucous membranes moist - Respiratory Respiratory exam: Present: decreased breath sounds. Absent: rales, rhonchi, wheezes - Cardiovascular Cardiovascular exam: Present: tachycardia. Absent: systolic murmur - GI/Abdominal GI/Abdominal exam: Present: soft. Absent: tenderness - Extremities Exam Extremities exam: Present: normal inspection, warm - Neurological Exam Neurological exam: Present: alert, oriented X3 - Skin Skin exam: Present: dry, warm Internal Medicine: Result - Labs CBC & Chem 7: 03/08/18 04:23 03/08/18 04:23 Labs: Short CBC 03/08/18 Range/Units 04:23 WBC 4.8 (4.3-11.1) K/mcL Hgb 10.7 L (11.5-15.4) g/dL Hct 31.2 L (35.3-44.9) % Plt Count 188 (140-400) K/mcL BMP 03/08/18 04:23 Sodium 138 Potassium 3.9 Chloride 109 H Carbon Dioxide 24 BUN 15 Creatinine 0.71 Glucose 102 Calcium 8.3 L - ABG Interpretation ABG results: PT/INR, D-dimer PT 11.9 Seconds (9.4-12.1) 03/05/18 13:12 D-Dimer 2070 ng/mLFEU (0-500) H 03/04/18 12:58 Consult Discharge Plan - Plan Referrals: Sreekanth Jones DO [Resident] - 03/17/18 4:00 pm Prescriptions: Rivaroxaban [Xarelto] 1 dose PO AD 30 Days #1 pack
[2018-03-08] MEDS ORDERED: Isovue-370 500 ML INFUS..BTL IV ONE (10:33)
[2018-03-08] MEDS: *HR* OxyCODONE/APAP 5/325 TABLET PO PRN ×2 (17:00→23:13)
[2018-03-08] MEDS: metroNIDAZOLE 500 MG TABLET PO SCH ×2 (17:00→23:12)
[2018-03-08] MEDS: traZODone 50 MG TABLET PO SCH (23:12)
[2018-03-09] MEDS: Divalproex (12 HR) 500 MG TABLET PO SCH ×3 (00:07→19:54)
--- NOTE | 2018-03-09 08:34 | Internal Med Progress Note ---
<Wilfrido Castañeda - Last Filed: 03/09/18 17:01> Date of Encounter: 03/09/18 Time of Encounter: 17:01 - Assessment and plan (1) Pulmonary embolism Current Visit: Yes Status: Acute Assessment and plan: Acute pulmonary emboli bilaterally, with right lower extremity DVT Repeat CTA stable. Transition from heparin to xeralto today. Continues to have some hemoptysis we will continue monitor. Qualifiers: Pulmonary embolism type: other Chronicity: unspecified Acute cor pulmonale presence: without acute cor pulmonale Qualified Code(s): I26.99 - Other pulmonary embolism without acute cor pulmonale (2) Pneumonia Current Visit: Yes Status: Acute Assessment and plan: Possible aspiration pneumonia present upon admission as a result of seizure disorder Continue Levaquin and Flagyl day #4 Aspiration precautions Will complete course of abx Qualifiers: Pneumonia type: aspiration pneumonia Aspiration pneumonia type: unspecified Laterality: bilateral Lung location: lower lobe of lung Qualified Code(s): J69.0 - Pneumonitis due to inhalation of food and vomit (3) Methamphetamine abuse Current Visit: Yes Status: Chronic Assessment and plan: Chronic issue. Last urine drug screen in January 2018 positive for methamphetamine. (4) Anxiety Current Visit: Yes Status: Chronic Assessment and plan: continue home medications (5) Seizure Current Visit: Yes Status: Acute Assessment and plan: Seizure disorder continue depakote (6) Hemoptysis Current Visit: Yes Status: Acute Assessment and plan: stable Continue xeralto Most likely related to injury from PE. (7) Axillary adenopathy Current Visit: Yes Status: Acute Assessment and plan: Has adenopathy noted on CT. not felt on examination will need repeat Ct outpatient and if still present a biopsy. - Time Spent With Patient Total time spent is greater than 50% in coordination of care (as documented) at patient's floor/unit and/or counseling patient: - Subjective Interval history: Patient reports continued hemoptysis. She states increased compared to yesterday. She denies any pleuritic chest pain. She is not requiring oxygen supplementation. She denies chest pain abdominal pain. She is tolerating her diet. - Constitutional Vitals: Temp Pulse Resp BP Pulse Ox 98.3 F 90 18 118/76 94 03/09/18 06:58 03/09/18 06:58 03/09/18 06:58 03/09/18 06:58 03/09/18 06:58 General appearance: Present: A&O X 3, pleasant, answers questions appropriately - Other Additional findings: General: plesant without distress Heart: Regular rate and rhythm with no murmur Lungs: Clear to auscultation bilaterally Abdomen: Soft nontender, nondistended positive bowel sounds Skin: warm and dry, absent rash Extremities: Absent pedal edema, Neuro: alert and oriented x3 Vascular: Pedal and radial pulses 2 out of 4 Internal Medicine: Result - Labs CBC & Chem 7: 03/08/18 04:23 03/08/18 04:23 - ABG Interpretation ABG results: PT/INR, D-dimer PT 11.9 Seconds (9.4-12.1) 03/05/18 13:12 D-Dimer 2070 ng/mLFEU (0-500) H 03/04/18 12:58 - Impressions Impressions Chest CTA 03/08/18 10:33 IMPRESSION: Segmental and subsegmental pulmonary emboli are again seen involving both lower lobes. Clot burden has slightly decreased compared to prior. Questionable pulmonary embolism versus artifact involving a subsegmental branch of the lateral right middle lobe. Bibasilar airspace consolidation with which is wedge-shaped, concerning for developing infarcts. Superimposed pneumonia is not entirely excluded. New small bilateral pleural effusions. Right lower lobe nodule and nodularity along the bronchovascular structures of the right middle lobe, similar in appearance compared to prior study. Follow-up per prior CT recommended. Persistent axillary mediastinal lymphadenopathy. Clinical correlation for lymphoma/lymphoproliferative process recommended. D/ / Carol John MD / Carol John MD Interpreting Provider: Carol John MD Consult Discharge Plan - Plan Referrals: Sreekanth Jones DO [Resident] - 03/17/18 4:00 pm Prescriptions: Rivaroxaban [Xarelto] 1 dose PO AD 30 Days #1 pack <Corey Barker - Last Filed: 03/09/18 17:29> Date of Encounter: 03/09/18 - Assessment and plan (1) Pulmonary embolism Current Visit: Yes Status: Acute Qualifiers: Pulmonary embolism type: other Chronicity: unspecified Acute cor pulmonale presence: without acute cor pulmonale Qualified Code(s): I26.99 - Other pulmonary embolism without acute cor pulmonale (2) Methamphetamine abuse Current Visit: Yes Status: Chronic (3) Anxiety Current Visit: Yes Status: Chronic (4) Seizure Current Visit: Yes Status: Acute (5) Pneumonia Current Visit: Yes Status: Acute Qualifiers: Pneumonia type: aspiration pneumonia Aspiration pneumonia type: unspecified Laterality: bilateral Lung location: lower lobe of lung Qualified Code(s): J69.0 - Pneumonitis due to inhalation of food and vomit (6) Hemoptysis Current Visit: Yes Status: Acute (7) Axillary adenopathy Current Visit: Yes Status: Acute - Time Spent With Patient Total time spent is greater than 50% in coordination of care (as documented) at patient's floor/unit and/or counseling patient: - Constitutional Vitals: Temp Pulse Resp BP Pulse Ox 97.8 F 114 17 119/96 96 03/09/18 10:51 03/09/18 17:00 03/09/18 17:00 03/09/18 17:00 03/09/18 17:00 Internal Medicine: Result - Labs CBC & Chem 7: 03/08/18 04:23 03/08/18 04:23 - ABG Interpretation ABG results: PT/INR, D-dimer PT 11.9 Seconds (9.4-12.1) 03/05/18 13:12 D-Dimer 2070 ng/mLFEU (0-500) H 03/04/18 12:58 - Attending Attestation I examined this patient and my medical decision-making was reviewed with the Resident Physician on 03/09/18. I agree with the documented findings, disposition and treatment plan as described except to the extent set forth below. Ms Le is currently admitted for acute bilateral PEs. She remains moderate to high risk due to potential for worsening clinical status. Ms Le continues to slowly improve. No fever or chills. Xarelto is a pre auth drug with insurance and we have sent paperwork. Started on Xarelto today. Less hemoptysis. Exam alert Comfortable No adenopathy axillary felt Less tachycardic No wheeze Abd soft I/P 1. Bilateral PE 2. Probable pulmonary infarct 3. Adenopathy I discussed the CT results with her and need for close follow up and probably biopsy. Further diagnoses and plan as above.
--- NOTE | 2018-03-09 08:50 | Electrocardiograph Report ---
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
[2018-03-09] MEDS: metroNIDAZOLE 500 MG TABLET PO SCH ×3 (09:18→19:54)
[2018-03-09] MEDS: Sennosides 8.6 MG TABLET PO SCH ×2 (09:19→19:54)
[2018-03-09] MEDS: levoFLOXacin 750 MG TABLET PO SCH (09:19)
[2018-03-09] MEDS: Heparin 25,000 UNIT/500 ML D5W 25,000 UNIT/500 ML BAG IVC SCH (09:19)
[2018-03-09] MEDS: *HR* Rivaroxaban 15 MG TABLET PO SCH ×2 (12:00→19:54)
[2018-03-09] MEDS: *HR* OxyCODONE/APAP 5/325 TABLET PO PRN (17:17)
[2018-03-09] MEDS: traZODone 50 MG TABLET PO SCH (19:54)
[2018-03-10] MEDS: *HR* OxyCODONE/APAP 5/325 TABLET PO PRN ×2 (04:52→11:25)
[2018-03-10] MEDS: Acetaminophen 325 MG TABLET PO PRN (05:11)
[2018-03-10 06:44] LABS: Eosinophils # 0.2 K/mcL (0.0-0.6); Hematocrit 31.5 % (35.3-44.9); Mean Corpuscular HGB Conc 34.9 g/dL (31.6-35.5); Mean Corpuscular Hemoglobin 31.7 pg (28.0-33.3); Mean Corpuscular Volume 90.8 fL (83.0-100.0); Mean Platelet Volume 10.6 fL (9.4-12.4); Nucleated Red Blood Cells 2.2 /100 WBC (0); Platelet Count 215 K/mcL (140-400); Red Blood Count 3.47 M/mcL (3.82-4.97); Red Cell Distribution Width 13.3 % (11.5-14.5)
[2018-03-10 07:49] LABS: Lymphocytes # 1.7 K/mcL (0.6-4.6); Monocytes # 0.7 K/mcL (0.0-1.3); Neutrophils # 6.6 K/mcL (1.6-8.9); Platelet Estimate Normal (Normal)
--- NOTE | 2018-03-10 08:56 | Discharge Summary ---
<Wilfrido Castañeda - Last Filed: 03/10/18 08:52> - NOTES TO OUTPATIENT PROVIDER Notes to Outpatient Provider: Patient admitted for back pain. She was found to have bilateral pulmonary embolisms and right lower extremity DVT. Was on heparin drip transition to xeralto which is approved for the next 6 months. Also had hemoptysis secondary to PE which is improving. Hemoglobin was stable upon discharge. CTA showed axillary lymphadenopathy. Patient will be following up with hematology for the lymphadenopathy and hypercoagulable workup. Orders not resulted at time of discharge: Pending orders 03/06/18 09:01 Antithrombin III, Activity Routine Cardiolipin Antibody, IGA Routine Cardiolipin Antibody, IGG Routine Cardiolipin Antibody, IGM Routine Factor V Leiden Routine Prothrombin [id number] Mutation Routine 03/07/18 08:23 Valproate Total & Free Routine 03/08/18 04:23 Valproate Total & Free AM 0400 Date of Encounter: 03/10/18 Time of Encounter: 08:53 - Discharge Diagnosis (1) Pulmonary embolism Priority: Primary Status: Acute Assessment and Plan: Acute pulmonary emboli bilaterally, with right lower extremity DVT CTA: Acute pulmonary emboli are seen in the lower lobe segment and subsegmental branches bilaterally. New 6 mm pulmonary nodule in the right middle lobe. Increasing size of left and right axillary lymph nodes both of which are enlarged. Mildly enlarged right paratracheal lymph node. We will be discharged with xeralto. Continues to have some hemoptysis but this is improving. Hemoglobin today is 11.0. Follow-up with oncology for hypercoagulable workup. Qualifiers: Pulmonary embolism type: other Chronicity: unspecified Acute cor pulmonale presence: without acute cor pulmonale Qualified Code(s): I26.99 - Other pulmonary embolism without acute cor pulmonale (2) Methamphetamine abuse Priority: Secondary Status: Chronic Assessment and Plan: Chronic issue. Last urine drug screen in January 2018 positive for methamphetamine. Patient educated on cessation of drug use. (3) Anxiety Priority: Secondary Status: Chronic Assessment and Plan: continue home medications. Patient given new prescription for trazodone, hydroxyzine, Seroquel, paroxetine , buspar (4) Seizure Priority: Secondary Status: Acute Assessment and Plan: Seizure disorder on admission valproic acid level was low because patient was non compliant with medication. continue depakote (5) Pneumonia Priority: Secondary Status: Ruled-out Assessment and Plan: Possible aspiration pneumonia present upon admission as a result of seizure disorder Received 4 days of Levaquin and Flagyl however patient's worsening respiratory status was secondary to pulmonary embolism and patient most likely does not have pneumonia. Sputum culture and peripheral blood cultures were negative. She was never febrile. Qualifiers: Pneumonia type: aspiration pneumonia Aspiration pneumonia type: unspecified Laterality: bilateral Lung location: lower lobe of lung Qualified Code(s): J69.0 - Pneumonitis due to inhalation of food and vomit (6) Hemoptysis Priority: Secondary Status: Acute Assessment and Plan: Improving Continue xeralto Most likely related to injury from PE. Follow-up with PCP (7) Axillary adenopathy Priority: Secondary Status: Acute Assessment and Plan: Has adenopathy noted on CT. not felt on examination We will follow-up with oncology. Hospital course: Ms. Le is a 37 year old female presented with back pain and left calf pain. Found to have PE bilaterally and left DVT. Was started on heparin and then transitioned to xeralto. Initially patient was also thought to have aspiration pneumonia however there is some ruled out she did receive 4 days of antibiotics. Oncology was consulted and started hypercoagulable workup which is pending. Patient also found to be subtherapeutic on Depakote secondary to noncompliance and had seizure the night before admission. Neurology was consulted and recommended continuing Depakote. She also hemoptysis which improved but not resolved. CTA also showed axillary lymphadenopathy. Patient will follow-up with oncology for this. Patient is also a methamphetamine abuser with last use January 2018 according to last urine drug screen positive for methamphetamine. Today patient is tolerating her diet. She is able to ambulate independently. She does have some pleuritic chest pain. She is not oxygen dependent. Discharge discussed with: patient - Time Spent with Patient Total time spent providing and/or coordinating discharge services: Greater than 30 minutes - Discharge Medications Prescriptions: Buspirone HCl [Buspar] 10 mg PO TID 30 Days #90 tablet Divalproex (12 HR) [Depakote (12 HR)] 500 mg PO BID 30 Days #60 tablet. HYDROcodone/Acet 5/325 mg [[place] 5-325 mg] 1 tab PO Q4H PRN 7 Days #20 tab PRN Reason: pain hydrOXYzine pamoate [HydrOXYzine Pamoate] 50 mg PO TID PRN 30 Days #90 capsule PRN Reason: Anxiety Paroxetine HCl [Paxil] 20 mg PO QAM 30 Days #30 tablet Prazosin [Minipress] 3 mg PO HS 90 Days #30 capsule Quetiapine Fumarate [Seroquel] 300 mg PO HS 30 Days #30 tablet Quetiapine Fumarate [Seroquel] 50 mg PO QAM 30 Days #30 tablet Rivaroxaban [Xarelto] 1 dose PO AD 30 Days #1 pack traZODone [TraZODone] 100 mg PO HS 30 Days #30 tablet Home Medications: Rivaroxaban [Xarelto] 1 dose PO AD 30 Days #1 pack 03/08/18 [Rx] Buspirone HCl [Buspar] 10 mg PO TID 30 Days #90 tablet 03/10/18 [Rx] Divalproex (12 HR) [Depakote (12 HR)] 500 mg PO BID 30 Days #60 tablet. [Rx] HYDROcodone/Acet 5/325 mg [[place] 5-325 mg] 1 tab PO Q4H PRN 7 Days #20 tab 03/10 [Rx] Paroxetine HCl [Paxil] 20 mg PO QAM 30 Days #30 tablet 03/10/18 [Rx] Prazosin [Minipress] 3 mg PO HS 90 Days #30 capsule 03/10/18 [Rx] Quetiapine Fumarate [Seroquel] 50 mg PO QAM 30 Days #30 tablet 03/10/18 [Rx] Quetiapine Fumarate [Seroquel] 300 mg PO HS 30 Days #30 tablet 03/10/18 [Rx] hydrOXYzine pamoate [HydrOXYzine Pamoate] 50 mg PO TID PRN 30 Days #90 capsule 03/10/18 [Rx] traZODone [TraZODone] 100 mg PO HS 30 Days #30 tablet 03/10/18 [Rx] Allergies/Adverse Reactions: 3 Allergy/AdvReac Type Severity Reaction Status Date / Time Penicillins Allergy Swelling Verified 01/21/18 10:41 of Lip/Tongue/Throat Date of admission: 03/04/18 17:06 Primary care physician: PCP NONE Consults: 03/04/18 17:48 Consult to Neurology [CONS] Routine Consulting Provider: [facility] Reason for Consult: breakthrough seizure Time Notified: 17:50 Call Completed: Yes 03/04/18 17:51 Consult to Oncology Hematology [CONS] Routine Consulting Provider: Estrella Alcala Reason for Consult: unprovoked PE, hx of lupus Time Notified: 17:53 Call Completed: Yes 03/05/18 12:48 Consult to Pulmonary Rehab [CONS] Routine Reason for Consult: hemoptysis, PE, Lung Infarct Call Completed: No 03/07/18 16:35 Consult to [facility] [CONS] Routine Reason for SW Consult: Needs assistance with medication, and primary care physician Discharging clinician: Wilfrido Castañeda - Constitutional Vitals: Temp Pulse Resp BP Pulse Ox 98.5 F 93 16 104/53 94 03/10/18 07:46 03/10/18 07:46 03/10/18 07:46 03/10/18 07:46 03/10/18 07:46 General appearance: Present: A&O X 3, pleasant, answers questions appropriately - Other Additional findings: General: without distress HEENT: Head atraumatic, normocephalic, EOMI, PERRL, neck nontender to palpation , absent lymphadenopathy, Moist Mucous Membranes, Heart: Regular rate and rhythm with no murmur Lungs: Clear to auscultation bilaterally Abdomen: Soft nontender, nondistended positive bowel sounds Skin: warm and dry, absent rash Extremities: Absent pedal edema, Neuro: Cranial nerves II through XII intact, UE and LE sensation equal bilaterally, UE and LEstrength 5/5, alert oriented 3, Vascular: Pedal and radial pulses 2 out of 4 - Patient Status Disposition: Home, Self-Care Condition: Fair Functional capacity at discharge: independent ambulation Overall status at discharge: patient is progressing back to baseline - Discharge Instructions Instructions: Prazosin (By mouth), Hydrocodone/Acetaminophen (By mouth), Buspirone (By mouth), Trazodone (By mouth), Hydroxyzine (By mouth), Paroxetine ( By mouth), Quetiapine (By mouth), Divalproex (By mouth), Rivaroxaban (By mouth) , Pulmonary Embolism (DC), Non-epileptic Seizures (DC), Methamphetamine Abuse ( DC), Suicide Prevention for Adults (DC), Anxiety (DC) Follow Up With: Sreekanth Jones DO [Resident] - 03/17/18 4:00 pm Priti Aguirre MD [Partnered Physician] - 03/17/18 8:00 am (axillary lymphadenopathy. hospital f/u PE, hypercoaguable workup. ) - Diet and Activity Activity: increase activity as tolerated Diet: advance to your usual diet <Corey Barker - Last Filed: 03/10/18 14:15> Orders not resulted at time of discharge: Pending orders 03/06/18 09:01 Antithrombin III, Activity Routine Factor V Leiden Routine Prothrombin [id number] Mutation Routine 03/07/18 08:23 Valproate Total & Free Routine 03/08/18 04:23 Valproate Total & Free AM 0400 Date of Encounter: 03/10/18 - Discharge Diagnosis (1) Pulmonary embolism Status: Acute Qualifiers: Pulmonary embolism type: other Chronicity: unspecified Acute cor pulmonale presence: without acute cor pulmonale Qualified Code(s): I26.99 - Other pulmonary embolism without acute cor pulmonale (2) Methamphetamine abuse Status: Chronic (3) Anxiety Status: Chronic (4) Seizure Status: Acute (5) Pneumonia Status: Ruled-out Qualifiers: Pneumonia type: aspiration pneumonia Aspiration pneumonia type: unspecified Laterality: bilateral Lung location: lower lobe of lung Qualified Code(s): J69.0 - Pneumonitis due to inhalation of food and vomit (6) Hemoptysis Status: Acute (7) Axillary adenopathy Status: Acute (8) Calf DVT (deep venous thrombosis) Priority: Secondary Status: Acute Qualifiers: Chronicity: acute Laterality: right Qualified Code(s): I82.4Z1 - Acute embolism and thrombosis of unspecified deep veins of right distal lower extremity Hospital course: Ms. Le is a 37 year old female - Time Spent with Patient Total time spent providing and/or coordinating discharge services: 39min Date of admission: 03/04/18 17:06 Primary care physician: PCP NONE Consults: 03/04/18 17:48 Consult to Neurology [CONS] Routine Consulting Provider: [facility] Reason for Consult: breakthrough seizure Time Notified: 17:50 Call Completed: Yes 03/04/18 17:51 Consult to Oncology Hematology [CONS] Routine Consulting Provider: Estrella Alcala Reason for Consult: unprovoked PE, hx of lupus Time Notified: 17:53 Call Completed: Yes 03/05/18 12:48 Consult to Pulmonary Rehab [CONS] Routine Reason for Consult: hemoptysis, PE, Lung Infarct Call Completed: No 03/07/18 16:35 Consult to [facility] [CONS] Routine Reason for SW Consult: Needs assistance with medication, and primary care physician - Constitutional Vitals: Temp Pulse Resp BP Pulse Ox 97.5 F L 98 16 108/56 93 03/10/18 11:32 03/10/18 11:32 03/10/18 11:32 03/10/18 11:32 03/10/18 11:32 - Attending Attestation I examined this patient and my medical decision-making was reviewed with the Resident Physician on 03/10/18. I agree with the documented findings, disposition and treatment plan as described except to the extent set forth below. Ms Le has been admitted for bilateral PEs and RLE DVT. She was on heparin drip and now on Xarelto. Still with some dyspnea and pain. She is now afebrile and ready for discharge. Exam alert Comfortable Mucus membranes dry Heart reg Lungs diminished on R Plan D/C home today with Xarelto Check oxygen requirements Advised she needs close follow up with PCP and hematology regarding coagulopathy and lymphadenopathy.
[2018-03-10] MEDS: Sennosides 8.6 MG TABLET PO SCH (09:14)
[2018-03-10] MEDS: levoFLOXacin 750 MG TABLET PO SCH (09:14)
[2018-03-10] MEDS: *HR* Rivaroxaban 15 MG TABLET PO SCH (09:15)
[2018-03-10] MEDS: Divalproex (12 HR) 500 MG TABLET PO SCH (09:15)
[2018-03-10] MEDS: metroNIDAZOLE 500 MG TABLET PO SCH (09:15)
[2018-03-10 11:36] VITALS: BP 108/56
[2018-03-10 16:40] LABS: Valproate Free 26 ug/mL (7-23); Valproate Total 53 ug/mL (50-125)
[2018-03-10 16:40] LABS: Valproate Free 29 ug/mL (7-23); Valproate Total 54 ug/mL (50-125)
[2018-03-11 13:57] LABS: Valproate % Free 49 % (5-18)
[2018-03-11 14:01] LABS: Valproate % Free 54 % (5-18)
[2018-03-11 20:04] LABS: FACV Specimen WHOLE BLOOD
[2018-03-11 20:39] LABS: Prothrombin G20210A Specimen WHOLE BLOOD
[2018-03-14 07:12] LABS: Fac V Leiden R506Q Mut Result NEGATIVE; Prothrombin G20210A Mut Result NEGATIVE
== END 2018-03-10 13:23 | disposition home or self-care (01) | DRG 134 ==
LOC: EMEROO 11:33 → 2NENU 17:06 → SUATTDRO 17:06 → 2NENU 17:55
PROVIDERS: ADMIT Hospitalist; ATTEND Internal Medicine

== ENCOUNTER 2022-01-17 12:49 | Inpatient (IN) ==
[2022-01-17 13:38] LABS: Basophils % 0.5 %; Eosinophils # 0.1 K/mcL (0.0-0.6); Eosinophils % 0.9 %; Hematocrit 42.8 % (35.3-44.9); Hemoglobin 13.6 g/dL (11.5-15.4); Immature Granulocytes % 0.3 % (0-4); Lymphocytes # 0.9 K/mcL (0.6-4.6); Lymphocytes % 13.3 %; Mean Corpuscular HGB Conc 31.8 g/dL (31.6-35.5); Mean Corpuscular Hemoglobin 27.8 pg (28.0-33.3); Mean Corpuscular Volume 87.3 fL (83.0-100.0); Mean Platelet Volume 10.3 fL (9.4-12.4); Monocytes # 0.3 K/mcL (0.0-1.3); Monocytes % 4.1 %; Neutrophils # 5.2 K/mcL (1.6-8.9); Platelet Count 199 K/mcL (140-400); Red Cell Distribution Width 15.9 % (11.5-14.5); Segmented Neutrophils % 80.9 %; White Blood Count 6.4 K/mcL (4.3-11.1)
[2022-01-17] MEDS ORDERED: Isovue-370 500 ML BOTTLE IVP ONE (13:58)
[2022-01-17 14:18] LABS: BUN/Creatinine Ratio 20 (6-26); Blood Urea Nitrogen 14 mg/dL (6-20); Calcium 8.7 mg/dL (8.6-10.3); Carbon Dioxide 21 mEq/L (23-29); Chloride 107 mEq/L (98-107); Glucose 113 mg/dL (70-105); Osmolality,Calculated 287 (280-300); Potassium 3.1 mEq/L (3.5-5.1); Sodium 138 mEq/L (136-145); Troponin I < 0.03 ng/mL (< 0.04); eGFR For African Americans > 60 (> 60); eGFR For Non-African Americans > 60 (> 60)
[2022-01-17] MEDS ORDERED: Potassium Effervescent 25 MEQ TABLET.EFF PO ONE (14:34)
[2022-01-17] MEDS ORDERED: *HR* Labetalol 20 MG/4 ML SYRINGE IVP ONE (14:37)
[2022-01-17] MEDS ORDERED: Metoprolol XL (24 HR) Succ 50 MG TAB.ER.24H PO ONE (14:38)
[2022-01-17 15:06] LABS: Influenza A PCR Negative (Negative); Influenza B PCR Negative (Negative); Resp. Syncytial Virus PCR Negative (Negative)
[2022-01-17 15:07] LABS: SARS-CoV-2 by PCR (In House) Negative (Negative)
[2022-01-17 15:15] LABS: Amphetamine Screen,Urine Positive ng/mL (Cutoff=1000); Barbiturate Screen,Urine Negative ng/mL (Cutoff=200); Benzodiazepines Screen,Urine Negative ng/mL (Cutoff=200); Cannabinoid Screen,Urine Negative ng/mL (Cutoff = 50); Cocaine Screen,Urine Negative ng/mL (Cutoff= 300); Opiate Screen,Urine Negative ng/mL (Cutoff=300); Phencyclidine Screen,Urine Negative ng/mL (Cutoff=25)
[2022-01-17] MEDS ORDERED: Furosemide 40 MG/4 ML VIAL IVP ONE (15:23)
[2022-01-17] MEDS ORDERED: Apixaban 5 MG TABLET PO ONE (15:38)
[2022-01-17] MEDS ORDERED: Azithromycin 500 MG in 0.9 % Sodium Chloride 250 ML IVPB ONE (15:49)
[2022-01-17] MEDS ORDERED: cefTRIAXone 2,000 MG in 0.9 % Sodium Chloride 20 ML IVP ONE (15:49)
[2022-01-17 17:31] LABS: ABG Base Excess -2 mEq/L (-2 to 3); ABG HCO3 20 mEq/L (21-27); ABG Oxygen Saturation 88 % (95-98); ABG PCO2 25 mmHg (35-45); ABG PO2 49 mmHg (85-104); ABG TCO2 20 mEq/L (20-26)
[2022-01-17 17:54] LABS: Adenovirus Not Detected (Not Detect); Bordetella Pertussis Not Detected (Not Detect); Chlamydophila pneumoniae Not Detected (Not Detect); Coronavirus 229E Not Detected (Not Detect); Coronavirus HKU1 Not Detected (Not Detect); Coronavirus NL63 Not Detected (Not Detect); Coronavirus OC43 Not Detected (Not Detect); Human Metapneumovirus Not Detected (Not Detect); Human Rhinovirus/Enterovirus Not Detected (Not Detect); Influenza A Subtype 2009 H1 Not Detected (Not Detect); Influenza B Not Detected (Not Detect); Mycoplasma pneumoniae Not Detected (Not Detect); Parainfluenza Virus 1 Not Detected (Not Detect); Parainfluenza Virus 2 Not Detected (Not Detect); Parainfluenza Virus 3 Not Detected (Not Detect); Parainfluenza Virus 4 Not Detected (Not Detect); Respiratory Syncytial Virus Not Detected (Not Detect); SARS-CoV-2 Not Detected (Not Detect)
[2022-01-17] MEDS ORDERED: Naloxone 0.4 MG/ML INJ IVP PRN (18:08)
[2022-01-17] MEDS ORDERED: Ondansetron ODT 4 MG TAB.RAPDIS SL PRN (18:08)
[2022-01-17] MEDS ORDERED: *HR* LORazepam 2 MG/ML VIAL IVP ONE (18:15)
[2022-01-17] MEDS ORDERED: *HR* Heparin 5,000 UNIT/ML VIAL IVP ONE (18:16)
[2022-01-17] MEDS ORDERED: *HR* Heparin 5,000 UNIT/ML VIAL IVP PRN ×2 (18:16)
[2022-01-17] MEDS ORDERED: Heparin 25,000UNIT/250ML 1/2NS 25,000 UNIT/250 ML IV.SOLN IVC SCH (18:30)
[2022-01-17] MEDS: Heparin 25,000UNIT/250ML 1/2NS 25,000 UNIT/250 ML IV.SOLN IVC SCH (19:40)
[2022-01-17 19:49] LABS: Hematocrit 46.9 % (35.3-44.9); Hemoglobin 14.8 g/dL (11.5-15.4); Mean Corpuscular HGB Conc 31.6 g/dL (31.6-35.5); Mean Corpuscular Hemoglobin 27.7 pg (28.0-33.3); Mean Corpuscular Volume 87.8 fL (83.0-100.0); Mean Platelet Volume 10.4 fL (9.4-12.4); Platelet Count 196 K/mcL (140-400); Red Blood Count 5.34 M/mcL (3.82-4.97); White Blood Count 7.6 K/mcL (4.3-11.1)
[2022-01-17 20:00] LABS: Heparin anti-factor XA UFH < 0.04 IU/mL (0.30-0.70); INR 1.1; Prothrombin Time 12.6 Seconds (9.4-12.1)
[2022-01-17] MEDS: Dexmedetomidine HCl 400 MCG/100 ML MLS IVC SCH (21:56)
[2022-01-17] MEDS ORDERED: Acetaminophen 325 MG TABLET PO PRN (22:19)
[2022-01-17] MEDS: Furosemide 40 MG/4 ML VIAL IVP SCH (23:30)
[2022-01-18 02:06] LABS: Basophils % 0.3 %; Eosinophils # 0.1 K/mcL (0.0-0.6); Eosinophils % 1.3 %; Immature Granulocytes % 0.3 % (0-4); Lymphocytes # 1.2 K/mcL (0.6-4.6); Lymphocytes % 19.3 %; Mean Corpuscular HGB Conc 32.8 g/dL (31.6-35.5); Mean Corpuscular Hemoglobin 27.9 pg (28.0-33.3); Mean Platelet Volume 10.3 fL (9.4-12.4); Monocytes # 0.4 K/mcL (0.0-1.3); Monocytes % 6.1 %; Neutrophils # 4.3 K/mcL (1.6-8.9); Platelet Count 170 K/mcL (140-400); Red Blood Count 4.59 M/mcL (3.82-4.97); Red Cell Distribution Width 15.9 % (11.5-14.5); Segmented Neutrophils % 72.7 %
[2022-01-18 02:07] LABS: Hemoglobin 12.8 g/dL (11.5-15.4)
[2022-01-18 02:23] LABS: BUN/Creatinine Ratio 19 (6-26); Blood Urea Nitrogen 14 mg/dL (6-20); Calcium 8.3 mg/dL (8.6-10.3); Carbon Dioxide 22 mEq/L (23-29); Chloride 109 mEq/L (98-107); Glucose 100 mg/dL (70-105); Osmolality,Calculated 289 (280-300); Potassium 3.4 mEq/L (3.5-5.1); Sodium 139 mEq/L (136-145); eGFR For African Americans > 60 (> 60); eGFR For Non-African Americans > 60 (> 60)
[2022-01-18 05:09] LABS: Bilirubin,Urine Negative (Negative); Blood,Urine Large (Negative); Clarity,Urine Clear (Clear); Color,Urine Light-Yellow (Yellow); Glucose,Urine (UA) Normal (Normal); Ketones,Urine Negative (Negative); Leukocyte Esterase,Urine Small (Negative); Nitrite,Urine Negative (Negative); Protein,Urine 200 mg/dL (Neg-Trace); Specific Gravity,Urine 1.026 (1.010-1.025); Urobilinogen,Urine Normal (Normal)
[2022-01-18 05:18] LABS: RBC,Urine 15-30 per hpf (0-3); Squamous Epithelial Cell,Urine Few per hpf (None-Few); WBC,Urine 0-3 per hpf (0-3)
[2022-01-18 05:19] LABS: Bacteria,Urine Few per hpf (None-Few)
[2022-01-18] MEDS: Dexmedetomidine HCl 400 MCG/100 ML MLS IVC SCH (07:29)
[2022-01-18] MEDS: Furosemide 40 MG/4 ML VIAL IVP SCH (07:30)
[2022-01-18 08:31] LABS: Heparin anti-factor XA UFH 0.26 IU/mL (0.30-0.70)
[2022-01-18] MEDS: ARIPiprazole 10 MG TABLET PO SCH (09:19)
[2022-01-18] MEDS: cefTRIAXone 2,000 MG in 0.9 % Sodium Chloride 20 ML IVPB SCH (09:20)
[2022-01-18] MEDS ORDERED: hydrALAZINE 25 MG TABLET PO SCH (11:30)
[2022-01-18] MEDS: predniSONE 20 MG TABLET PO SCH ×2 (12:20→21:35)
[2022-01-18] MEDS: *HR* LORazepam 2 MG/ML VIAL IVP PRN (15:33)
[2022-01-18] MEDS: Azithromycin 500 MG in 0.9 % Sodium Chloride 250 ML IVPB SCH (15:35)
[2022-01-18] MEDS: Torsemide 20 MG TABLET PO SCH (15:36)
[2022-01-18] MEDS ORDERED: *HR* LORazepam 2 MG/ML VIAL IVP ONE (16:25)
[2022-01-18] MEDS: Heparin 25,000UNIT/250ML 1/2NS 25,000 UNIT/250 ML IV.SOLN IVC SCH (18:41)
[2022-01-18] MEDS: cloNIDine HCL 0.1 MG TABLET PO ONE (18:45)
[2022-01-18] MEDS: Budesonide/Formoterol 160/4.5 1 PUFF INH IH SCH (20:04)
[2022-01-18] MEDS: Apixaban 5 MG TABLET PO SCH (21:34)
[2022-01-18] MEDS: Famotidine 20 MG TABLET PO SCH (21:35)
[2022-01-19] MEDS: cloNIDine HCL 0.1 MG TABLET PO ONE (00:14)
[2022-01-19] MEDS: Budesonide/Formoterol 160/4.5 1 PUFF INH IH SCH ×2 (07:32→20:42)
[2022-01-19] MEDS ORDERED: cloNIDine HCL 0.1 MG TABLET PO PRN (07:38)
[2022-01-19] MEDS: ARIPiprazole 10 MG TABLET PO SCH (08:21)
[2022-01-19] MEDS: Torsemide 20 MG TABLET PO SCH (08:22)
[2022-01-19] MEDS: predniSONE 20 MG TABLET PO SCH ×2 (08:22→19:52)
[2022-01-19] MEDS: cefTRIAXone 2,000 MG in 0.9 % Sodium Chloride 20 ML IVPB SCH (08:22)
[2022-01-19] MEDS: Apixaban 5 MG TABLET PO SCH ×2 (08:22→19:52)
[2022-01-19] MEDS: Famotidine 20 MG TABLET PO SCH ×2 (08:27→19:52)
[2022-01-19 08:38] LABS: Basophils % 0.2 %; Hematocrit 40.2 % (35.3-44.9); Hemoglobin 12.7 g/dL (11.5-15.4); Immature Granulocytes % 0.2 % (0-4); Lymphocytes % 19.4 %; Mean Corpuscular HGB Conc 31.6 g/dL (31.6-35.5); Mean Corpuscular Hemoglobin 27.4 pg (28.0-33.3); Mean Corpuscular Volume 86.6 fL (83.0-100.0); Mean Platelet Volume 10.4 fL (9.4-12.4); Monocytes # 0.4 K/mcL (0.0-1.3); Monocytes % 6.7 %; Neutrophils # 3.8 K/mcL (1.6-8.9); Platelet Count 222 K/mcL (140-400); Red Blood Count 4.64 M/mcL (3.82-4.97); Red Cell Distribution Width 15.9 % (11.5-14.5); Segmented Neutrophils % 73.5 %; White Blood Count 5.2 K/mcL (4.3-11.1)
[2022-01-19 08:56] LABS: BUN/Creatinine Ratio 25 (6-26); Blood Urea Nitrogen 17 mg/dL (6-20); Carbon Dioxide 21 mEq/L (23-29); Chloride 104 mEq/L (98-107); Glucose 103 mg/dL (70-105); Osmolality,Calculated 288 (280-300); Potassium 3.5 mEq/L (3.5-5.1); Sodium 138 mEq/L (136-145); eGFR For African Americans > 60 (> 60); eGFR For Non-African Americans > 60 (> 60)
[2022-01-19] MEDS: cloNIDine HCL 0.1 MG TABLET PO SCH ×2 (15:06→19:52)
[2022-01-19] MEDS: Azithromycin 500 MG in 0.9 % Sodium Chloride 250 ML IVPB SCH (15:06)
[2022-01-20 01:06] VITALS: O2SAT 96
[2022-01-20] MEDS: *HR* LORazepam 2 MG/ML VIAL IVP PRN (01:48)
[2022-01-20 01:50] LABS: BUN/Creatinine Ratio 24 (6-26); Blood Urea Nitrogen 23 mg/dL (6-20); Calcium 8.8 mg/dL (8.6-10.3); Carbon Dioxide 25 mEq/L (23-29); Chloride 100 mEq/L (98-107); Glucose 131 mg/dL (70-105); Osmolality,Calculated 287 (280-300); Potassium 3.3 mEq/L (3.5-5.1); Sodium 136 mEq/L (136-145); eGFR For African Americans > 60 (> 60); eGFR For Non-African Americans > 60 (> 60)
[2022-01-20 07:59] VITALS: PULSE 18; TEMP 97.4
[2022-01-20] MEDS ORDERED: Potassium Chloride Elixir 20 MEQ/15 ML UDC PO ONE (08:30)
[2022-01-20] MEDS: ARIPiprazole 10 MG TABLET PO SCH (08:33)
[2022-01-20] MEDS: predniSONE 20 MG TABLET PO SCH (08:34)
[2022-01-20] MEDS: Famotidine 20 MG TABLET PO SCH (08:34)
[2022-01-20] MEDS: Apixaban 5 MG TABLET PO SCH (08:34)
[2022-01-20] MEDS: cloNIDine HCL 0.1 MG TABLET PO SCH (08:34)
[2022-01-20] MEDS: cefTRIAXone 2,000 MG in 0.9 % Sodium Chloride 20 ML IVPB SCH (08:36)
[2022-01-20 10:37] VITALS: BP 158/111
[2022-01-20] MEDS ORDERED: Azithromycin 250 MG TABLET PO SCH (15:00)
[2022-01-21] MEDS ORDERED: Cefdinir 300 MG CAPSULE PO SCH (09:00)
== END 2022-01-20 11:44 | disposition home or self-care (01) | DRG 137 ==
LOC: EMEROOARM 12:49 → 3NENU 12:49 → 2NNU 18:26 → SUATTDRO 18:28 → 2NNU 19:46 → 2ANU 01-19 12:41
PROVIDERS: ADMIT Internal Medicine; ATTEND Family Medicine